=== PATIENT | male | born 1955 | race Caucasian/White ===

== ENCOUNTER 2021-05-11 14:00 | Outpatient (RCR) | payer MEDICARE, SELFPAY | END 2021-05-12 09:44 | disposition home or self-care (01) | LOC: PT.CARL 14:00 | PROVIDERS: PCP Nurse Practitioner Family; Visit Provider Orthopaedic Surgery | DX: M75.121 Complete rotator cuff tear or rupture of right shoulder, not specified as traumatic (principal); M25.511 Pain in right shoulder | CPT/HCPCS: 97010; 97014; 97110; 97140; 97163; 97164; G0283 ==

== ENCOUNTER 2021-08-23 11:00 | Outpatient (RCR) | payer MEDICARE, SELFPAY | END 2021-09-06 08:59 | disposition home or self-care (01) | LOC: PT.CARL 11:00 | PROVIDERS: PCP Nurse Practitioner Family; Visit Provider Orthopaedic Surgery | DX: M75.01 Adhesive capsulitis of right shoulder (principal) | CPT/HCPCS: 97010; 97014; 97110; 97140; 97163; 97164; G0283 ==

== ENCOUNTER → 2021-11-02 06:13 | Outpatient (CLI) | payer MEDICARE, SELFPAY ==
[2021-11-02 18:31] LABS: Chloride 97 mmol/L (98-107); Sodium 138 mmol/L (136-145)
[2021-11-02 18:34] LABS: Alanine Aminotransferase 32 U/L (12-78); Albumin Level 4.4 g/dl (3.5-5.0); Albumin/Globulin Ratio 1.6 (1.1-1.8); Alkaline Phosphatase 85 U/L (38-126); Aspartate Amino Transferase 38 U/L (17-59); Blood Urea Nitrogen 18 mg/dl (9-20); Calcium 8.9 mg/dl (8.4-10.2); Carbon Dioxide 28 mmol/L (22.0-30.0); Chol/HDL Ratio 4.3 (1-3.5); Cholesterol 138 mg/dl (140-200); Estimated Glomerular Filt Rate 96 ml/min (>60); GFR (African American) 116 ML/MIN (>60); Globulin 2.7 g/dL (1.3-3.2); Glucose 133 mg/dl (74-100); HDL Cholesterol 32 mg/dl (40-60); Total Protein,Serum 7.1 g/dl (6.3-8.2); Triglycerides 160 mg/dl (30-150); VLDL Cholesterol 32 mg/dL (0-40)
[2021-11-02 18:36] LABS: Basophils # 0.1 K/mm3 (0-0.2); Eosinophils # 0.2 K/mm3 (0.0-0.4); Eosinophils % 2.2 % (0.1-12.0); Hematocrit 41.8 % (42.0-52.0); Hemoglobin 13.7 g/dL (14.1-18.0); Lymphocytes # 1.3 K/mm3 (0.7-4.5); Lymphocytes % 17.1 % (10-50); Mean Corpuscular HGB Conc 32.7 g/dL (31.8-35.4); Mean Corpuscular Volume 91.6 fl (80-94); Mean Platelet Volume 20.7 fl (7.4-10.4); Monocytes # 0.6 K/mm3 (0.1-1.0); Monocytes % 7.7 % (1.7-9.3); Neutrophils # 5.7 K/mm3 (1.8-7.8); Platelet Count 218 K/mm3 (142-424); Red Blood Count 4.56 M/mm3 (4.60-6.20); White Blood Count 7.8 K/mm3 (4.8-10.8)
[2021-11-02 18:45] LABS: Direct LDL Cholesterol 76.82 mg/dL (100-129)
[2021-11-02 19:05] LABS: Thyroid Stimulating Hormone 2.58 uIU/mL (0.465-4.68)
[2021-11-02 19:23] LABS: Creatinine,Urine Random 81 mg/dL (Not Estab.); Microalbumin < 6.000 mg/L (0-16.7)
[2021-11-02 22:14] LABS: Prostate Specific Ag Screen 0.9 ng/ml (0.0-4.0)
[2021-11-02 23:50] LABS: Hemoglobin A1C 7.6 % (4.0-6.0)
== END ==
PROVIDERS: PCP Family Medicine; Visit Provider Family Medicine
DX: E11.65 Type 2 diabetes mellitus with hyperglycemia; I25.10 Atherosclerotic heart disease of native coronary artery without angina pectoris; J44.9 Chronic obstructive pulmonary disease, unspecified; Q00-Q99 Congenital malformations, deformations and chromosomal abnormalities; Z79.84 Long term (current) use of oral hypoglycemic drugs; Z12.5 Encounter for screening for malignant neoplasm of prostate
CPT/HCPCS: 80053; 80061; 82043; 82570; 83036; 84443; 85025; G0103

== ENCOUNTER → 2022-01-10 06:40 | Outpatient (CLI) | payer MEDICARE, SELFPAY | PROVIDERS: PCP Family Medicine; Visit Provider Family Medicine | DX: J40 Bronchitis, not specified as acute or chronic (principal) | CPT/HCPCS: 87070; 87077; 87186; 87205 ==

== ENCOUNTER → 2022-01-31 09:20 | Outpatient (CLI) | payer MEDICARE, SELFPAY ==
[2022-01-31 20:17] LABS: Hemoglobin A1C 9.2 % (4.0-6.0)
== END ==
PROVIDERS: PCP Family Medicine; Visit Provider Family Medicine
DX: E11.65 Type 2 diabetes mellitus with hyperglycemia (principal); Z79.84 Long term (current) use of oral hypoglycemic drugs
CPT/HCPCS: 83036

== ENCOUNTER 2022-03-04 23:49 | Emergency (ER) | payer MEDICARE, SELFPAY ==
[2022-03-04 23:51] VITALS: BP 148/73; PULSE 94; RESP 21; TEMP 36.8; O2SAT 91; BMI 27.3
--- NOTE | 2022-03-04 23:57 | ECG_ITS ---
APPROVED REPORT Exam: Resting ECG HR:91 bpm ECG Measurements Heart Rate 91 AXES KS 170 P 71 QRSd 78 QRS 78 QT 311 T 99 QTc 360 Conclusion SINUS RHYTHM LOW QRS VOLTAGE IN EXTREMITY LEADS [QRS DEFLECTION < 0.5 mV IN LIMB LEADS] POSSIBLE ANTERIOR MYOCARDIAL INFARCTION , PROBABLY OLD [30 ms Q WAVE IN V3/V4, OR R < 0.2 mV IN V4] BORDERLINE ECG UNCONFIRMED REPORT Electronically signed by : Chance Gutierrez MD 03/05/2022 16:20:36
[2022-03-05] VITALS: BP 125/67; PULSE 89; O2SAT 94; BMI 27.3
--- NOTE | 2022-03-05 | XR_ITS ---
PROCEDURE INFORMATION: Exam: XR Chest Exam date and time: 03/05/2022 12:26 AM Age: 67 years old Clinical indication: Pain; Chest pressure; Additional info: SOA TECHNIQUE: Imaging protocol: Radiologic exam of the chest. Views: 2 views. COMPARISON: No relevant prior studies available. FINDINGS: Lungs: No definite airspace consolidation. No appreciable pulmonary edema. Pleural spaces: No pleural effusion. No pneumothorax. Heart/Mediastinum: Bilateral perihilar fullness with fibrotic changes, nonspecific. No cardiomegaly. Bones/joints: No evidence of acute osseous abnormality. IMPRESSION: Bilateral perihilar fullness with fibrotic changes, nonspecific.
--- NOTE | 2022-03-05 00:02 | CT_ITS ---
PROCEDURE INFORMATION: Exam: CTA Chest With Contrast Exam date and time: 03/05/2022 12:43 AM Age: 67 years old Clinical indication: Shortness of breath; Additional info: SOA TECHNIQUE: Imaging protocol: Computed tomographic angiography of the chest with contrast. 3D rendering (Not supervised by radiologist): MIP and/or 3D reconstructed images were created by the technologist. Radiation optimization: All CT scans at this facility use at least one of these dose optimization techniques: automated exposure control; mA and/or kV adjustment per patient size (includes targeted exams where dose is matched to clinical indication); or iterative reconstruction. Contrast material: ISOVUE; Contrast volume: 70 ml; Contrast route: INTRAVENOUS (IV); COMPARISON: CR Chest 03/05/2022 12:26 AM FINDINGS: Pulmonary arteries: No pulmonary emboli. Aorta: No aortic dissection or aneurysm. Lungs: Moderate paraseptal and centrilobular emphysematous changes with bilateral subpleural and paramediastinal blebs. Bronchial wall thickening with severe bilateral widespread bronchiectasis and cystic changes of variable degrees. No acute airspace consolidation. No appreciable pulmonary edema. Few calcified pulmonary granulomata, compatible with chronic sequelae of prior granulomatous disease. Pleural spaces: No pneumothorax. No pleural effusion. Heart: No cardiomegaly. No significant pericardial effusion. Lymph nodes: Numerous conspicuous subcentimeter mediastinal and hilar lymph nodes noted. No enlarged lymph nodes by CT criteria. Calcified lymph nodes, compatible with chronic sequelae of prior granulomatous disease. Intraperitoneal space: No emergent findings or suspicious mass lesions in the visualized upper abdomen. Bones/joints: No acute osseous abnormality. Soft tissues: Unremarkable. IMPRESSION: 1. No evidence of pulmonary embolism or other acute process in the chest. 2. Bronchial wall thickening with severe bilateral widespread bronchiectasis and cystic changes of variable degrees. Findings appear compatible with cystic fibrosis. Langerhans cell histiocytosis would be a top differential diagnosis. 3. Emphysema. 4. Additional non-acute ancillary findings are detailed above. COMMENTS: In the absence of a history or active diagnosis of lung cancer, it is recommended that this patient with emphysema be evaluated for enrollment in a low dose CT lung cancer screening program.
--- NOTE | 2022-03-05 00:03 | PC.NURSE ---
RT at to obtain ABG
[2022-03-05 00:16] LABS: Basophils # 0.1 K/mm3 (0-0.2); Basophils % 0.3 % (0.1-2.0); Eosinophils # 0.2 K/mm3 (0.0-0.4); Eosinophils % 1.1 % (0.1-12.0); Hematocrit 40.2 % (42.0-52.0); Hemoglobin 13.1 g/dL (14.1-18.0); Lymphocytes # 0.9 K/mm3 (0.7-4.5); Lymphocytes % 4.7 % (10-50); Mean Corpuscular HGB Conc 32.5 g/dL (31.8-35.4); Mean Corpuscular Volume 92.1 fl (80-94); Mean Platelet Volume 8.8 fl (7.4-10.4); Monocytes # 1.1 K/mm3 (0.1-1.0); Monocytes % 5.6 % (1.7-9.3); Neutrophils # 16.8 K/mm3 (1.8-7.8); Neutrophils % 88.4 % (37.0-80.0); Platelet Count 275 K/mm3 (142-424); Red Blood Count 4.36 M/mm3 (4.60-6.20); Red Cell Distribution Width 14.4 % (11.5-17.5)
[2022-03-05 00:18] LABS: MANUAL DIFFERENTIAL MANUAL DIFFERENTIAL (MANUAL DIFF)
[2022-03-05 00:21] LABS: Chloride 99 mmol/L (98-107); Sodium 135 mmol/L (136-145)
[2022-03-05 00:22] LABS: Potassium 4.6 mmoL/L (3.5-5.1)
[2022-03-05 00:24] LABS: Alanine Aminotransferase 24 U/L (12-78); Albumin Level 4.2 g/dl (3.5-5.0); Albumin/Globulin Ratio 1.3 (1.1-1.8); Alkaline Phosphatase 79 U/L (38-126); Anion Gap 9.6 mEq/L (5-15); Aspartate Amino Transferase 22 U/L (17-59); Bilirubin,Total 1.4 mg/dl (0.2-1.3); Blood Urea Nitrogen 25 mg/dl (9-20); Calcium 9.4 mg/dl (8.4-10.2); Carbon Dioxide 31 mmol/L (22.0-30.0); Creatinine Clearance Estimated 80 mL/min (50-200); Estimated Glomerular Filt Rate 66 ml/min (>60); GFR (African American) 80 ML/MIN (>60); Globulin 3.3 g/dL (1.3-3.2); Glucose 221 mg/dl (74-100); Total Protein,Serum 7.5 g/dl (6.3-8.2)
[2022-03-05 00:25] LABS: Lactic Acid 1.9 mmol/L (0.7-2.1)
[2022-03-05 00:27] LABS: Lymphocytes % 8 % (10-50); Neutrophils % 85 % (42-76); Platelet Estimate Normal; RBC Morphology Normal; Total Cells Counted 100
[2022-03-05 00:30] LABS: C-Reactive Protein 213.7 mg/L (0-4)
--- NOTE | 2022-03-05 00:34 | PC.NURSE ---
Pt gone to RAD via wheelchair
[2022-03-05 00:36] LABS: NT Pro Brain Natriuretic Pep. 153 pg/mL (0-125)
[2022-03-05 00:39] LABS: Troponin I < 0.01 ng/ml (0.00-0.034)
[2022-03-05 00:45] LABS: Erythrocyte Sedimentation Rate 67 mm/hr (0-20)
--- NOTE | 2022-03-05 00:47 | PC.NURSE ---
Pt back from RAD
[2022-03-05 01:05] LABS: ABG HCO3 22.3 mmhg (22.0-26.0); ABG Oxygen Saturation 95 % (90-100); ABG PCO2 39.5 mmhg (35.0-45.0); ABG PH 7.37 mmol/L (7.35-7.45); ABG PO2 75.8 mmhg (80-100); ABG TCO2 23.5 mmhg (23-27)
--- NOTE | 2022-03-05 01:05 | HMH.EDSOB ---
Discharge Plan Disposition Patient Disposition: Home, Self-Care Prescriptions Prescriptions: New prednisone [prednisone] 20 mg tablet 20 mg PO BID Qty: 15 0RF levofloxacin 500 mg tablet 500 mg PO DAILY Qty: 7 0RF No Action Spiriva with HandiHaler 18 mcg capsule, w/inhalation device 1 cap INHALATION DAILY fluticasone propionate 50 mcg/actuation spray,suspension 1 g INTRANASAL DAILY albuterol sulfate 2.5 mg /3 mL (0.083 %) solution for nebulization 2.5 mg continuous nebulization Q4-6H clopidogrel 75 mg tablet 75 mg PO DAILY lisinopril 20 mg tablet 20 mg PO DAILY carvedilol 12.5 mg tablet 6.25 mg PO BID fluticasone propion-salmeterol 250-50 mcg/dose blister with device 1 ea INHALATION DAILY atorvastatin 40 mg tablet 40 mg PO DAILY multivitamin Tablet 1 tab PO DAILY furosemide 40 mg tablet 40 mg PO DAILY PRN (Reason: edema) cetirizine 10 mg tablet 10 mg PO DAILY PRN (Reason: Allergy Symptoms) vitamin B complex Tablet 1 tab PO DAILY vitamin E (dl, acetate) 180 mg (400 unit) capsule 180 mg PO DAILY ergocalciferol (vitamin D2) 50 mcg (2,000 unit) tablet 50 mcg PO DAILY nitroglycerin 0.4 mg tablet, sublingual 0.4 mg sublingual Q5-15M PRN (Reason: darby pain) metformin 500 mg tablet extended release 24 hr 1,000 mg PO BID Referrals Follow up/Referrals: Abelardo Jennings MD [Primary Care Provider] - See instructions Clinical Impressions Clinical Impression: Acute exacerbation of chronic obstructive airways disease, Bronchitis Discharge ED Provider: Moisés Welsh Resp/SOB HPI General Chief Complaint: Shortness of Breath/Dyspnea Stated Complaint: SOA Time Seen by Provider: 03/05/22 01:05 Mode of Arrival: Ambulatory Source of Information: Patient, Spouse and Medical Record Limitations: No Limitations Description of Symptoms (Recalled from ER Triage Doc. by RN): pt c/o SOA that started and increased tonight. History of Present Illness pt with hx of ongoing lung disease with cough and sob was treated in jan and was back to baseline has o2 at home -no fever Complaint: shortness of breath and cough Onset (ago): day(s) Severity: moderate Consistency/Duration: intermittent Known history of: COPD and diabetes Associated symptoms: denies other symptoms Related Data Home oxygen amount: 2 liters Home Medications Medication Instructions Recorded Confirmed albuterol sulfate 2.5 mg/3 mL 2.5 mg continuous nebulization 09/08/20 03/05/22 (0.083 %) solution for nebulization Q4-6H Breathing problems carvedilol 12.5 mg tablet 6.25 mg PO BID High blood pressure 09/08/20 03/05/22 clopidogrel 75 mg tablet 75 mg PO DAILY Blood thinner 09/08/20 03/05/22 fluticasone 250 mcg-salmeterol 50 1 ea inhalation DAILY Breathing 09/08/20 03/05/22 mcg/dose blistr powdr for problems inhalation fluticasone propionate 50 1 g intranasal DAILY Allergy 09/08/20 03/05/22 mcg/actuation nasal symptoms spray,suspension lisinopril 20 mg tablet 20 mg PO DAILY High blood pressure 09/08/20 03/05/22 tiotropium bromide 18 mcg capsule 1 cap inhalation DAILY Breathing 09/08/20 03/05/22 with inhalation device (Spiriva problems with HandiHaler) atorvastatin 40 mg tablet 40 mg PO DAILY HLD 11/02/21 03/05/22 cetirizine 10 mg tablet 10 mg PO DAILY PRN Allergy Symptoms 11/02/21 03/05/22 ergocalciferol (vitamin D2) 50 mcg 50 mcg PO DAILY Supplement 11/02/21 03/05/22 (2,000 unit) tablet furosemide 40 mg tablet 40 mg PO DAILY PRN edema 11/02/21 03/05/22 multivitamin 1 tab PO DAILY Supplement 11/02/21 03/05/22 vitamin B complex 1 tab PO DAILY Supplement 11/02/21 03/05/22 vitamin E (dl, acetate) 180 mg 180 mg PO DAILY Supplement 11/02/21 03/05/22 (400 unit) capsule nitroglycerin 0.4 mg sublingual 0.4 mg sublingual Q5-15M PRN darby 01/10/22 03/05/22 tablet pain metformin 500 mg tablet,extended 1,000 mg PO BID Diabetes
[2022-03-05 01:06] LABS: Coronavirus 19, PCR Not Detected (NotDetected); Influenza A, PCR Not Detected (NotDetected); Influenza B, PCR Not Detected (NotDetected)
[2022-03-05 01:06] LABS: Allen's Test Acceptable; Source Left Brachial
--- NOTE | 2022-03-05 02:00 | PC.NURSE ---
Dr. Welsh at BS updating pt on results
[2022-03-05 02:08] VITALS: BP 127/67; PULSE 81; RESP 21; TEMP 36.8; O2SAT 94
== END 2022-03-05 02:26 | disposition home or self-care (01) ==
PROVIDERS: Emergency Provider Emergency Medicine; PCP Family Medicine
DX: J44.1 Chronic obstructive pulmonary disease with (acute) exacerbation (principal); J20.9 Acute bronchitis, unspecified; I10 Essential (primary) hypertension; F41.9 Anxiety disorder, unspecified; E11.9 Type 2 diabetes mellitus without complications; Z83.3 Family history of diabetes mellitus; Z80.9 Family history of malignant neoplasm, unspecified; Z82.49 Family history of ischemic heart disease and other diseases of the circulatory system; Z87.891 Personal history of nicotine dependence; Z20.822 Contact with and (suspected) exposure to COVID-19
CPT/HCPCS: 71046; 71275; 80053; 82803; 83605; 83880; 84145; 84484; 85007; 85025; 85651; 86140; 87040; 87077; 87186; 93005; 96374; 99285; C9803; Q9967; U0003; U0005

== ENCOUNTER → 2022-06-01 17:02 | Outpatient (CLI) | payer MEDICARE, SELFPAY ==
[2022-06-01 19:15] LABS: Creatinine,Urine Random 66 mg/dL (Not Estab.)
[2022-06-01 19:17] LABS: Microalbumin/Creatinine Ratio 9.6
[2022-06-01 20:49] LABS: Hemoglobin A1C 8.3 % (4.0-6.0)
== END ==
PROVIDERS: PCP Family Medicine; Visit Provider Family Medicine
DX: E11.65 Type 2 diabetes mellitus with hyperglycemia (principal); Z79.84 Long term (current) use of oral hypoglycemic drugs
CPT/HCPCS: 82043; 82570; 83036

== ENCOUNTER → 2022-10-05 23:11 | Outpatient (CLI) | payer MEDICARE, SELFPAY ==
[2022-10-05 17:03] LABS: Basophils # 0.1 K/mm3 (0-0.2); Basophils % 0.7 % (0.1-2.0); Eosinophils # 0.2 K/mm3 (0.0-0.4); Eosinophils % 2.6 % (0.1-12.0); Hematocrit 43.6 % (42.0-52.0); Lymphocytes # 1.3 K/mm3 (0.7-4.5); Lymphocytes % 17.8 % (10-50); Mean Corpuscular Hemoglobin 30.6 pg (27.0-31.2); Mean Corpuscular Volume 95.6 fl (80-94); Mean Platelet Volume 8.9 fl (7.4-10.4); Monocytes # 0.5 K/mm3 (0.1-1.0); Monocytes % 6.7 % (1.7-9.3); Neutrophils # 5.4 K/mm3 (1.8-7.8); Neutrophils % 72.2 % (37.0-80.0); Platelet Count 223 K/mm3 (142-424); Red Blood Count 4.56 M/mm3 (4.60-6.20); Red Cell Distribution Width 13.2 % (11.5-17.5); White Blood Count 7.5 K/mm3 (4.8-10.8)
[2022-10-05 17:06] LABS: Alanine Aminotransferase 29 U/L (12-78); Albumin/Globulin Ratio 1.5 (1.1-1.8); Alkaline Phosphatase 73 U/L (38-126); Anion Gap 13.7 mEq/L (5-15); Aspartate Amino Transferase 27 U/L (17-59); Bilirubin,Total 0.5 mg/dl (0.2-1.3); Blood Urea Nitrogen 19 mg/dl (9-20); Calcium 9.2 mg/dl (8.4-10.2); Carbon Dioxide 32 mmol/L (22.0-30.0); Chloride 99 mmol/L (98-107); Chol/HDL Ratio 4.9 (1-3.5); Cholesterol 146 mg/dl (140-200); Estimated Glomerular Filt Rate 84 ml/min (>60); GFR (African American) 101 ML/MIN (>60); Globulin 2.7 g/dL (1.3-3.2); Glucose 133 mg/dl (74-100); HDL Cholesterol 30 mg/dl (40-60); Potassium 4.7 mmoL/L (3.5-5.1); Sodium 140 mmol/L (136-145); Total Protein,Serum 6.7 g/dl (6.3-8.2); Triglycerides 234 mg/dl (30-150); VLDL Cholesterol 47 mg/dL (0-40)
[2022-10-05 17:13] LABS: NT Pro Brain Natriuretic Pep. 40.3 pg/mL (0-125)
[2022-10-05 17:17] LABS: Direct LDL Cholesterol 86.77 mg/dL (100-129)
[2022-10-05 18:38] LABS: Hemoglobin A1C 7.6 % (4.0-6.0)
== END ==
PROVIDERS: PCP Family Medicine; Visit Provider Family Medicine
DX: Z00.00 Encounter for general adult medical examination without abnormal findings (principal); R06.00 Dyspnea, unspecified; E11.65 Type 2 diabetes mellitus with hyperglycemia; Z79.84 Long term (current) use of oral hypoglycemic drugs
CPT/HCPCS: 80053; 80061; 83036; 83880; 85025

== ENCOUNTER 2023-07-17 11:53 | Inpatient (IN) | payer MEDICARE, SELFPAY ==
[2023-07-17] VITALS (9 sets, daily range): BP systolic 132–144; BP diastolic 66–88; PULSE 72–88; RESP 15–18; TEMP 36.6–38.1; O2SAT 87–97; BMI 28.3; BMI 28.2
--- NOTE | 2023-07-17 12:43 | XR_ITS ---
FINAL REPORT CLINICAL HISTORY: Shortness of breath COMPARISON: None FINDINGS: A single portable view of the chest was obtained. The heart size and pulmonary vascularity are within normal limits. The mediastinum is within normal limits. Bilateral pulmonary opacities, [id number], are consistent with pneumonia. The bony thorax is intact. IMPRESSION: Bilateral pulmonary opacities consistent with pneumonia. Reviewed, Interpreted and Dictated by Wilmer Bates III, MD Transcribed by Juany Lundberg Authenticated and [facility]
--- NOTE | 2023-07-17 12:47 | ED_ITS ---
Discharge Plan Disposition Chief Complaint: Weakness Prescriptions Prescriptions: No Action Spiriva with HandiHaler 18 mcg capsule, w/inhalation device 1 cap INHALATION DAILY fluticasone propionate 50 mcg/actuation spray,suspension 1 g INTRANASAL DAILY albuterol sulfate 2.5 mg /3 mL (0.083 %) solution for nebulization 2.5 mg continuous nebulization Q4-6H clopidogrel 75 mg tablet 75 mg PO DAILY lisinopril 20 mg tablet 20 mg PO DAILY carvedilol 12.5 mg tablet 6.25 mg PO BID fluticasone propion-salmeterol 250-50 mcg/dose blister with device 1 ea INHALATION DAILY atorvastatin 40 mg tablet 40 mg PO DAILY multivitamin Tablet 1 tab PO DAILY cetirizine 10 mg tablet 10 mg PO DAILY PRN (Reason: Allergy Symptoms) vitamin B complex Tablet 1 tab PO DAILY vitamin E (dl, acetate) 180 mg (400 unit) capsule 180 mg PO DAILY ergocalciferol (vitamin D2) 50 mcg (2,000 unit) tablet 50 mcg PO DAILY nitroglycerin 0.4 mg tablet, sublingual 0.4 mg sublingual Q5-15M PRN (Reason: darby pain) hydroxyzine HCl 10 mg tablet 10 mg PO QID PRN (Reason: anxiety) Qty: 120 2RF metformin 500 mg tablet extended release 24 hr See Rx Instructions .ROUTE .COMPLEX Qty: 360 3RF Dose Instruction: Take 2 tablets by mouth twice daily Rx Instructions: Take 2 tablets by mouth twice daily glipizide 5 mg tablet 10 mg PO DAILY 90 Days Qty: 180 1RF Referrals Follow up/Referrals: Abelardo Jennings MD [Primary Care Provider] - See instructions Clinical Impressions Clinical Impression: Acute exacerbation of chronic obstructive airways disease, Pneumonia, Bronchiectasis Discharge ED Provider: Ton Guerra General Adult HPI General Chief complaint: Weakness Stated complaint: cough weakness left shoulder pain Time Seen by Provider: 07/17/23 12:21 Mode of Arrival: Ambulatory Source of Information: Patient Limitations: No Limitations Description of Symptoms (Recalled from ER Triage Doc. by RN): pt presents to ED from pcp office for further evaluation. pt reports that since monday night he has been having cough and generalized weakness. History of Present Illness HPI narrative: Patient is a 68-year-old with a history of COPD and bronchiectasis presents today with worsening cough shortness of breath fever and sputum production over the last several days. has had some left anterior chest pain nonexertional nonradiating has been ongoing for the last several days. Related Data Home Medications Medication Instructions Recorded Confirmed albuterol sulfate 2.5 mg/3 mL 2.5 mg continuous nebulization 09/08/20 07/17/23 (0.083 %) solution for nebulization Q4-6H Breathing problems carvedilol 12.5 mg tablet 6.25 mg PO BID High blood pressure 09/08/20 07/17/23 clopidogrel 75 mg tablet 75 mg PO DAILY Blood thinner 09/08/20 07/17/23 fluticasone 250 mcg-salmeterol 50 1 ea inhalation DAILY Breathing 09/08/20 07/17/23 mcg/dose blistr powdr for problems inhalation fluticasone propionate 50 1 g intranasal DAILY Allergy 09/08/20 07/17/23 mcg/actuation nasal symptoms spray,suspension lisinopril 20 mg tablet 20 mg PO DAILY High blood pressure 09/08/20 07/17/23 tiotropium bromide 18 mcg capsule 1 cap inhalation DAILY Breathing 09/08/20 07/17/23 with inhalation device (Spiriva problems with HandiHaler) atorvastatin 40 mg tablet 40 mg PO DAILY HLD 11/02/21 07/17/23 cetirizine 10 mg tablet 10 mg PO DAILY PRN Allergy Symptoms 11/02/21 07/17/23 ergocalciferol (vitamin D2) 50 mcg 50 mcg PO DAILY Supplement 11/02/21 07/17/23 (2,000 unit) tablet multivitamin 1 tab PO DAILY Supplement 11/02/21 07/17/23 vitamin B complex 1 tab PO DAILY Supplement 11/02/21 07/17/23 vitamin E (dl, acetate) 180 mg 180 mg PO DAILY Supplement 11/02/21 07/17/23 (400 unit) capsule nitroglycerin 0.4 mg sublingual 0.4 mg sublingual Q5-15M PRN darby 01/10/22 07/17/23 tablet pain Previous Rx's Medication Instructions Recorded hydroxyzine HCl 10 mg tablet 10 mg PO QID PRN anxiety #120 tabs 06/27/22 metformin 500 mg tablet,extended See Rx Instructions .Route 08/29/22 release 24 hr .COMPLEX #360 tabs glipizide 5 mg tablet 10 mg (2 x 5 mg) PO DAILY 90 days 05/07/23 #180 tabs Allergies Allergy/AdvReac Type Severity Reaction Status Date / Time No Known Allergies Allergy Verified 07/17/23 10:38 [facility] Disclaimer: The information contained in this section may have been updated after the patient was seen, as this information can be updated by other users. Medical History Congenital cystic bronchiectasis HTN (hypertension), benign COPD (chronic obstructive pulmonary disease) Atherosclerotic heart disease Asthma Anxiety Type 2 diabetes mellitus with hyperglycemia, without long-term current use of insulin Surgical History History of colonoscopy H/O repair of right rotator cuff Hx of cardiac cath Family History Other Cancer Diabetes Hypertension Social History Smoking Status: Former smoker alcohol intake: never substance use type: denies use current occupational status: retired Travel in the last 8 weeks: None ROS Obtained: Yes All systems reviewed & no additional complaints except as documented Physical Exam General General appearance: alert and in no apparent distress Respiratory Respiratory exam: Present other (Diffuse expiratory wheezing mildly prolonged expiratory phase ox saturations 87% on room air normalized to 95% on 3 L) Cardiovascular Cardiovascular exam: Present regular rate Neurological Exam Neurological exam: Present alert and oriented X3 Medical Decision Making Bill Inquiry Pt receiving controlled substance: No Vital Signs: 07/17/23 11:55 Temperature 98.8 F Temperature Source Oral Pulse Rate [Left Radial] 87 Respiratory Rate 18 Blood Pressure [Right Arm] 136/76 Blood Pressure Mean [Right Arm] 96 02 Sat by Pulse Oximetry 87 L Oxygen Delivery Method Room Air Orders (Tests/Meds): ED MEDICATIONS Generic Name Dose Route Start Last Admin Trade Name Freq PRN Reason Stop Dose Admin Magnesium Sulfate 2 gm in 50 mls @ 50 mls/hr 07/17/23 12:43 Magnesium Sulfate 2gm/50ml Premix IV 07/17/23 13:42 ONCE ONE Cefepime HCl 2 gm/ Sodium 100 mls @ 200 mls/hr 07/17/23 13:15 Chloride IV 07/17/23 13:44 ONCE ONE Azithromycin 500 mg/ Sodium 250 mls @ 250 mls/hr 07/17/23 13:15 Chloride IV 07/27/23 13:14 Q24H [facility] Vancomycin/PEG/NADA/Lysine/Water 1.75 gm in 350 mls @ 175 mls/hr 07/17/23 13:30 Vancomycin 1.75gm/350ml (Peg) Premix IV 07/17/23 15:29 ONCE ONE Miscellaneous 1 each 07/17/23 13:15 Vancomycin Consult Request NOTAPPLIC 08/16/23 13:14 CONSULT PHARMACY [facility] Sodium Chloride 3 ml 07/17/23 12:46 Sodium Chloride 3% 15ml [facility] 08/16/23 12:45 ONCE PRN INDUCE SPUTUM COLLECTION Discontinued Medications Generic Name Dose Route Start Last Admin Trade Name Freq PRN Reason Stop Dose Admin Albuterol/Ipratropium 3 ml 07/17/23 12:43 Ipratropium/Albuterol 3 Ml [facility] 07/17/23 12:44 ONCE ONE Amoxicillin/Clavulanate Potassium 1 each 07/17/23 12:43 07/17/23 13:01 Amoxicillin/Clavulanate Potassium 875/125mg Tablet PO 07/17/23 12:44 Not Given ONCE ONE Lactated Ringer's 500 mls @ 999 mls/hr 07/17/23 12:45 Lactated Ringer's 1000 Ml Bag IV 07/17/23 13:15 .Q31M [facility] Prednisone 60 mg 07/17/23 12:43 Prednisone 20mg Tab PO 07/17/23 12:44 ONCE ONE ORDERS Category Date Time Status CT chest wo con Stat Cat Scan 07/17/23 13:01 Taken CXR --portable [XR chest portable] Stat Exams 07/17/23 12:43 Taken CBC w/Auto Diff [Complete Blood Count Auto Diff] Stat Lab 07/17/23 13:11 Received CMP [Comprehensive Metabolic Panel] Stat Lab 07/17/23 13:11 Received Lactic Acid Stat Lab 07/17/23 13:11 Received Rapid PCR Covid and Flu A/B Stat Lab 07/17/23 13:06 Received Trop I [Troponin I] Stat Lab 07/17/23 13:11 Received Troponin I Q3H Lab 07/17/23 15:45 Ordered Troponin I Q3H Lab 07/17/23 18:45 Ordered Acid Fast Smear+Culture W/Rflx Routine Micro 07/17/23 13:11 Received Blood Culture Stat Micro 07/17/23 13:11 Received Sputum Culture & Gram Stain Stat Micro 07/17/23 13:11 Received Venous Blood Gas Stat RT 07/17/23 13:17 Ordered Medical Decision Narrative: Well-appearing 68-year-old male presented with increasing cough sputum production shortness of breath and wheezing consistent with a COPD exacerbation. He is mildly hypoxic but has oxygen at his disposal at home that he uses at night and has been wearing it during the day recently. No respiratory distress. Pneumonia certainly on the differential. Sputum culture has been sent. He has been evaluated [facility] for cystic bronchiectasis sweat chloride and ciliary biopsy were negative but he has been receiving courses of p.o. fluoroquinolones and inhaled tobramycin he has grown some gram-positive cocci gram-negative rods and gram-positive rods in the past. He is followed by pulmonology [facility]. Of note his visual merchandising associate have been wanting to repeat his acid-fast bacilli specimens which we are able to send today. Reassessment 1:22 PM chest x-ray performed to person interpreted also compared to radiology imaging available [facility]. He has a new infiltrate on the left also reviewed their records and given the fact that he has had numerous organisms that have grown will be very difficult to cover empirically he has a new oxygen requirement and I spoke with our visual merchandising associate here at [facility] and we agreed to admit the patient for broad-spectrum antibiotics including Vanco cefepime and azithromycin. Patient agreeable to this plan he is stable on 3 was nasal cannula hemodynamically stable labs are pending. I spoke with Dr. Knox with hospital medicine who agreed admit the patient for further evaluation management. Critical Care Critical Care Time Critical Care Time: Yes Attestation: On 07/17/23, the high probability of a clinically significant, sudden or life threatening deterioration of the following system(s) required my full and direct attention, intervention and personal management. The time I documented below is in addition to time spent performing reported procedures but includes the following listed in this critical care notation. Total Time Total Critical Care Time: 35
[2023-07-17] MEDS: IPRATROPIUM/ALBUTEROL 3 ML NEB IH ×3 (12:50→23:51)
--- NOTE | 2023-07-17 13:01 | CT_ITS ---
FINAL REPORT TECHNIQUE: Axial imaging of the chest was obtained without contrast. Reformatted images were also obtained and reviewed.This study was performed with techniques to keep radiation doses as low as reasonably achievable, (ALARA). Individualized dose reduction technique using automated exposure control or adjustment of mA and/or kV according to the patient's size were employed. CLINICAL HISTORY: f/u abnormal CXR COMPARISON: 03/05/2022 FINDINGS: There is no axillary adenopathy. There is persistent mediastinal and hilar adenopathy with the largest AP window lymph node measuring 30 mm. Previously this measured 25 mm. There is left ventricular apical subendocardial fat consistent with prior myocardial infarct. This is stable from prior exam. There is moderate emphysema. Again noted is a cystic bronchiectasis, greatest in the upper lobes. There are new lingular opacities most worrisome for pneumonia. There is a small left pleural effusion. There is no pericardial effusion or pneumothorax. IMPRESSION: Enlargement of AP window lymph node. Findings consistent with prior myocardial infarction. Moderate emphysema with stable cystic bronchiectasis. New lingular opacities most worrisome for pneumonia. Reviewed, Interpreted and Dictated by Wilmer Bates III, MD Transcribed by Annamarie Palencia Authenticated and [facility]
[2023-07-17 13:11] LABS: Coronavirus 19, PCR Not Detected (NotDetected); Influenza A, PCR Not Detected (NotDetected); Influenza B, PCR Not Detected (NotDetected)
--- NOTE | 2023-07-17 13:17 | PC.NURSE ---
respiratory aware of vbg order, collecting blood from lab at this time
[2023-07-17 13:21] LABS: Lactate Venous 1.5 mmol/L (0.4-2.0); VBG Base Excess -0.9 mmol/L (-2.4-2.3); VBG HCO3 24.9 mmol/L (23-30); VBG Oxygen Saturation 74.9 % (50-70); VBG PCO2 47.1 mmol/L (35-51); VBG PH 7.34 mmol/L (7.31-7.41); VBG PO2 41.4 mmol/L (28-40); VBG Total CO2 26.3 mmol/L (23-27)
[2023-07-17] MEDS: MAGNESIUM SULFATE IN WATER 2 GM/50 ML PIGGYBACK IV (13:23)
[2023-07-17] MEDS: predniSONE 20MG TAB 60 MG PO (13:24)
[2023-07-17] MEDS: LACTATED RINGERS 1000ML 500 ML 999 ML IV (13:24)
[2023-07-17 13:28] LABS: Chloride 98 mmol/L (98-107); Potassium 4.6 mmoL/L (3.5-5.1); Sodium 135 mmol/L (136-145)
[2023-07-17 13:29] LABS: Basophils # 0.1 K/mm3 (0-0.2); Basophils % 0.5 % (0.1-2.0); Eosinophils # 0.1 K/mm3 (0.0-0.4); Eosinophils % 0.6 % (0.1-12.0); Hemoglobin 12.8 g/dL (14.1-18.0); Lymphocytes # 1.3 K/mm3 (0.7-4.5); Lymphocytes % 8.6 % (10-50); Mean Corpuscular HGB Conc 32.1 g/dL (31.8-35.4); Mean Corpuscular Hemoglobin 30.7 pg (27.0-31.2); Mean Corpuscular Volume 95.8 fl (80-94); Mean Platelet Volume 8.6 fl (7.4-10.4); Monocytes # 1.2 K/mm3 (0.1-1.0); Monocytes % 7.7 % (1.7-9.3); Neutrophils # 12.3 K/mm3 (1.8-7.8); Neutrophils % 82.6 % (37.0-80.0); Platelet Count 248 K/mm3 (142-424); Red Blood Count 4.18 M/mm3 (4.60-6.20); Red Cell Distribution Width 13.5 % (11.5-17.5); White Blood Count 14.9 K/mm3 (4.8-10.8)
[2023-07-17 13:31] LABS: Alanine Aminotransferase 24 U/L (12-78); Albumin/Globulin Ratio 1.1 (1.1-1.8); Alkaline Phosphatase 68 U/L (38-126); Anion Gap 12.6 mEq/L (5-15); Aspartate Amino Transferase 23 U/L (17-59); Bilirubin,Total 1.2 mg/dl (0.2-1.3); Blood Urea Nitrogen 31 mg/dl (9-20); Carbon Dioxide 29 mmol/L (22.0-30.0); Creatinine Clearance Estimated 84 mL/min (50-200); Estimated Glomerular Filt Rate 66 ml/min (>60); GFR (African American) 80 ML/MIN (>60); Globulin 3.5 g/dL (1.3-3.2); Total Protein,Serum 7.5 g/dl (6.3-8.2)
[2023-07-17 13:32] LABS: Calcium 9.4 mg/dl (8.4-10.2); Glucose 196 mg/dl (74-100); Lactic Acid 1.3 mmol/L (0.7-2.1)
--- NOTE | 2023-07-17 13:38 | PC.NURSE ---
report called to raul on second floor
--- NOTE | 2023-07-17 13:38 | HMH.PHAINT1 ---
Pharmacy Intervention Comments: MEDICATION RECONCILIATION COMPLETED ON PATIENT USING EXTERNAL FILL HISTORY FROM PHARMACY. -DOLORES MONTGOMERY, THERESAD
[2023-07-17 13:47] LABS: Troponin I < 0.01 ng/ml (0.00-0.034)
--- NOTE | 2023-07-17 13:55 | PC.NURSE ---
arrived by w/c from ED
--- NOTE | 2023-07-17 14:45 | EXP.PHA.CONS ---
Pharmacy Consult Date: 07/17/23 Time: 14:46 Referring provider: DR LIGHT Reason for Consult:: VANCOMYCIN DOSING CONSULT Allergies Allergy/AdvReac Type Severity Reaction Status Date / Time No Known Allergies Allergy Verified 07/17/23 10:38 Home Medications Medication Instructions Recorded Confirmed Type carvedilol 12.5 mg tablet 6.25 mg PO BID 09/08/20 07/17/23 History clopidogrel 75 mg tablet 75 mg PO DAILY 09/08/20 07/17/23 History fluticasone 250 mcg-salmeterol 50 1 ea inhalation BID 09/08/20 07/17/23 History mcg/dose blistr powdr for inhalation lisinopril 20 mg tablet 20 mg PO DAILY 09/08/20 07/17/23 History tiotropium bromide 18 mcg capsule 1 cap inhalation DAILY 09/08/20 07/17/23 History with inhalation device (Spiriva with HandiHaler) atorvastatin 40 mg tablet 40 mg PO DAILY 11/02/21 07/17/23 History cetirizine 10 mg tablet 10 mg PO DAILY 11/02/21 07/17/23 History ergocalciferol (vitamin D2) 50 mcg 50 mcg PO DAILY 11/02/21 07/17/23 History (2,000 unit) tablet multivitamin 1 tab PO DAILY 11/02/21 07/17/23 History vitamin B complex 1 tab PO DAILY 11/02/21 07/17/23 History vitamin E (dl, acetate) 180 mg 180 mg PO DAILY 11/02/21 07/17/23 History (400 unit) capsule nitroglycerin 0.4 mg sublingual 0.4 mg sublingual Q5MINP PRN Chest 01/10/22 07/17/23 History tablet Pain glipizide 5 mg tablet 10 mg (2 x 5 mg) PO DAILY 90 days 05/07/23 07/17/23 Rx #180 tabs hydroxyzine HCl 10 mg tablet 10 mg PO QIDP PRN anxiety 07/17/23 07/17/23 History metformin 500 mg tablet,extended 1,000 mg PO BID 07/17/23 07/17/23 History release 24 hr New Prescriptions to Start Prescriptions: Height: 1.83 m Weight: 94.483 kg Laboratory Results:: Laboratory Results - last 24 hr 07/17/23 13:06: SARS-CoV-2 (PCR) Not detected, Influenza A Untype (PCR) Not detected, Influenza Type B (PCR) Not detected 07/17/23 13:11: WBC 14.9 H, RBC 4.18 L, Hgb 12.8 L, Hct 40.0 L, MCV 95.8 H, MCH 30.7, MCHC 32.1, RDW 13.5, Plt Count 248, MPV 8.6, Neut % (Auto) 82.6 H, Lymph % (Auto) 8.6 L, [place] % (Auto) 7.7, Eos % (Auto) 0.6, Baso % (Auto) 0.5, Neut # (Auto) 12.3 H, Lymph # (Auto) 1.3, [place] # (Auto) 1.2 H, Eos # (Auto) 0.1, Baso # (Auto) 0.1, VBG pH 7.34, VBG pCO2 47.1, VBG pO2 41.4 H, VBG HCO3 24.9, VBG Total CO2 26.3, VBG O2 Saturation 74.9 H, VBG Base Excess -0.9, VBG Lactic Acid 1.5, Sodium 135 L, Potassium 4.6, Chloride 98, Carbon Dioxide 29, Anion Gap 12.6, BUN 31 H, Creatinine 1.10, Estimated Creat Clear 84, Estimated GFR 66, Est GFR ( Amer) 80, Glucose 196 H, Lactate 1.3, Calcium 9.4, Total Bilirubin 1.2, AST 23, ALT 24, Alkaline Phosphatase 68, Troponin I < 0.01, Total Protein 7.5, Albumin 4.0, Globulin 3.5 H, Albumin/Globulin Ratio 1.1 Medical History: Medical History (Updated 07/17/23 @ 13:22 by Ton Guerra MD) Congenital cystic bronchiectasis HTN (hypertension), benign COPD (chronic obstructive pulmonary disease) Atherosclerotic heart disease Asthma Anxiety Type 2 diabetes mellitus with hyperglycemia, without long-term current use of insulin Assessment and Plan Assessment and plan all Dx Assessment and Plan for all problems:: Pharmacokinetic dosing service Objective: Age: 68 yo Serum creatinine: 1.1 mg/dL Height: 72.0 Inches Weight (kg): 94.483 Diagnosis: PNEUMONIA Assessment: IBW (kg): 77.60 Dosing wt(kg): 94.483 Estimated Creatinine clearance (ml/min): 68.6 CRCL method: Cockcroft and Gault using ibw(default). Drug selected: Vancomycin Loading dose (mg): 1750 MG Vd (liters): 66.1 (factor used: 0.7 L/kg) Davide (hr-1): 0.061 Half life (hrs): 11.36 CLvanco=?? 4.032 L/hr Recommended dose: 1500 mg Interval: 18 hrs Infusion time (hrs): 2.0 Predicted peak (mcg/mL): 32.1 Predicted trough (mcg/mL): 12.10 Total body weight is being used for vancomycin dosing. Recommendations: Give Vancomycin 1500 mg q 18 hrs with an expected Cpeak of 32.1 mcg/ml and an expected Ctrough of 12.10 mcg/ml TO START 07/18/23 AT 09:00, PATIENT TO BE GIVEN ONE-TIME LOADING DOSE OF VANCOMYCIN 1750 MG IV ONCE ON 07/17/23 AT 1500. AUC 0-24 /THOMPSON Data: THOMPSON 0.5 mcg/mL:?? AUC/THOMPSON:? 992.1 THOMPSON 1.0 mcg/mL:?? AUC/THOMPSON:? 496.0 --------- THOMPSON 1.5 mcg/mL:?? AUC/THOMPSON:? 330.7 THOMPSON 2.0 mcg/mL:?? AUC/THOMPSON:? 248.0 Thank you for the consult
--- NOTE | 2023-07-17 15:33 | P.CONS_ITS ---
History of Present Illness History of present illness: Mr. Esparza is a 76-year-old male around [id number] smoking last 1 greater than 15 years ago, carries a diagnosis of cystic bronchiectasis and moderate COPD along with chronic hypoxic respiratory failure, prior history of Pseudomonas colonization with most recent Pseudomonas positive cultures from 2019 presented to ER with worsening respiratory distress and pleuritic chest pain admitted for further evaluation and management. [facility] Disclaimer: The information contained in this section may have been updated after the patient was seen, as this information can be updated by other users. Medical History (Updated 07/17/23 @ 15:40 by Leslie Blanco MD) Acute and chronic respiratory failure with hypoxia Bronchiectasis with (acute) exacerbation Congenital cystic bronchiectasis HTN (hypertension), benign COPD (chronic obstructive pulmonary disease) Atherosclerotic heart disease Asthma Anxiety Type 2 diabetes mellitus with hyperglycemia, without long-term current use of insulin Surgical History History of colonoscopy H/O repair of right rotator cuff Hx of cardiac cath Family History Other Cancer Diabetes Hypertension Social History (Updated 07/17/23 @ 14:35 by DAMASO Vuong) Smoking Status: Former smoker alcohol intake: never substance use type: denies use current occupational status: retired Travel in the last 8 weeks: None Review of Systems Constitutional Constitutional: Reports anorexia, Reports body ache(s) and Reports fatigue Eyes Eyes: Denies eye discharge, Denies dry eyes, Denies irritation and Denies itchy eyes ENT Ears, Nose, Mouth, and Throat: Denies epistaxis, Denies facial pain, Denies lip swelling and Denies throat swelling *Cardiovascular Cardiovascular: Reports chest pain, Reports dyspnea and Reports dyspnea on exertion *Respiratory Respiratory: Reports chest congestion, Reports cough, Reports dyspnea, Reports dyspnea on exertion, Reports excessive phlegm production, Denies hemoptysis, Reports pain on inspiration, Reports pain with cough and Denies wheezing *Gastrointestinal Gastrointestinal: Denies abdominal pain, Denies belching and Denies cramping *Musculoskeletal Musculoskeletal: Reports back pain, Reports myalgias and Reports other (No small joint swelling or Pain) Psychiatric Psychiatric: Denies homicidal ideation and Denies suicidal ideation Endocrine Endocrine: Reports fatigue and Denies heat intolerance Hematologic/Lymphatic Hematologic/Lymphatic: Denies easy bleeding and Denies lymphadenopathy Allergic/Immunologic Allergic/Immunologic: Denies itchy eyes, Denies lip swelling, Denies throat swelling and Denies wheezing Pulmonology Exam Inpatient Vital signs and Labs for Last 24 Hours: Temp Pulse Resp BP Pulse Ox O2 Del Method O2 Flow Rate 97.9 F 83 15 132/88 96 Room Air 2.5 07/17/23 13:59 07/17/23 13:59 07/17/23 13:59 07/17/23 13:59 07/17/23 13:55 07/17/23 15:00 07/17/23 13:55 Laboratory Results - last 24 hr 07/17/23 13:06: SARS-CoV-2 (PCR) Not detected, Influenza A Untype (PCR) Not detected, Influenza Type B (PCR) Not detected 07/17/23 13:11: WBC 14.9 H, RBC 4.18 L, Hgb 12.8 L, Hct 40.0 L, MCV 95.8 H, MCH 30.7, MCHC 32.1, RDW 13.5, Plt Count 248, MPV 8.6, Neut % (Auto) 82.6 H, Lymph % (Auto) 8.6 L, [place] % (Auto) 7.7, Eos % (Auto) 0.6, Baso % (Auto) 0.5, Neut # (Auto) 12.3 H, Lymph # (Auto) 1.3, [place] # (Auto) 1.2 H, Eos # (Auto) 0.1, Baso # (Auto) 0.1, VBG pH 7.34, VBG pCO2 47.1, VBG pO2 41.4 H, VBG HCO3 24.9, VBG Total CO2 26.3, VBG O2 Saturation 74.9 H, VBG Base Excess -0.9, VBG Lactic Acid 1.5, S odium 135 L, Potassium 4.6, Chloride 98, Carbon Dioxide 29, Anion Gap 12.6, BUN 31 H, Creatinine 1.10, Estimated Creat Clear 84, Estimated GFR 66, Est GFR ( Amer) 80, Glucose 196 H, Lactate 1.3, Calcium 9.4, Total Bilirubin 1.2, AST 23, ALT 24, Alkaline Phosphatase 68, Troponin I < 0.01, Total Protein 7.5, Albumin 4.0, Globulin 3.5 H, Albumin/Globulin Ratio 1.1 I & O for Labs for Last 24 Hours: Intake & Output 07/14/23 07/15/23 07/16/23 07/17/23 23:59 23:59 23:59 23:59 Weight 208 lb 4.8 oz Constitutional: Present moderate distress Head: Present normocephalic and atraumatic ENT: Present normal exam, normal oropharynx and mucous membranes moist Neck: Present normal inspection and full ROM Respiratory: Present respiratory distress, rhonchi and able to speak in complete sentences; Absent wheezes or crackles Cardiac: Present S1/S2, Tachycardia and radial pulses present GI: Present soft and distention; Absent tenderness or guarding Skin: Present intact; Absent cyanosis or jaundice Neuro: Present alert, awake and oriented x 3 Extremities: Present normal inspection; Absent clubbing or cyanosis Psychiatric: Present normal affect and cooperative Meds Home Medications and Allergies Home Medications Medication Instructions Recorded Confirmed Type carvedilol 12.5 mg tablet 6.25 mg PO BID 09/08/20 07/17/23 History clopidogrel 75 mg tablet 75 mg PO DAILY 09/08/20 07/17/23 History fluticasone 250 mcg-salmeterol 50 1 ea inhalation BID 09/08/20 07/17/23 History mcg/dose blistr powdr for inhalation lisinopril 20 mg tablet 20 mg PO DAILY 09/08/20 07/17/23 History tiotropium bromide 18 mcg capsule 1 cap inhalation DAILY 09/08/20 07/17/23 History with inhalation device (Spiriva with HandiHaler) atorvastatin 40 mg tablet 40 mg PO DAILY 11/02/21 07/17/23 History cetirizine 10 mg tablet 10 mg PO DAILY 11/02/21 07/17/23 History ergocalciferol (vitamin D2) 50 mcg 50 mcg PO DAILY 11/02/21 07/17/23 History (2,000 unit) tablet multivitamin 1 tab PO DAILY 11/02/21 07/17/23 History vitamin B complex 1 tab PO DAILY 11/02/21 07/17/23 History vitamin E (dl, acetate) 180 mg 180 mg PO DAILY 11/02/21 07/17/23 History (400 unit) capsule nitroglycerin 0.4 mg sublingual 0.4 mg sublingual Q5MINP PRN Chest 01/10/22 07/17/23 History tablet Pain glipizide 5 mg tablet 10 mg (2 x 5 mg) PO DAILY 90 days 05/07/23 07/17/23 Rx #180 tabs hydroxyzine HCl 10 mg tablet 10 mg PO QIDP PRN anxiety 07/17/23 07/17/23 History metformin 500 mg tablet,extended 1,000 mg PO BID 07/17/23 07/17/23 History release 24 hr New Prescriptions to Start Prescriptions: Allergies Allergy/AdvReac Type Severity Reaction Status Date / Time No Known Allergies Allergy Verified 07/17/23 10:38 Results Laboratory Findings 07/17/23 13:11 07/17/23 13:11 Abnormal lab findings: Abnormal Labs 07/17/23 13:11 WBC 14.9 H RBC 4.18 L Hgb 12.8 L Hct 40.0 L MCV 95.8 H Neut % (Auto) 82.6 H Lymph % (Auto) 8.6 L Neut # (Auto) 12.3 H [place] # (Auto) 1.2 H VBG pO2 41.4 H VBG O2 Saturation 74.9 H Sodium 135 L BUN 31 H Glucose 196 H Globulin 3.5 H Assessment and Plan *Assessment and plan (1) Bronchiectasis with (acute) exacerbation: Status: Acute Category: Medical Code(s): J47.1 - Bronchiectasis with (acute) exacerbation (2) Pneumonia: Status: Acute Category: Medical Code(s): J18.9 - Pneumonia, unspecified organism (3) Acute and chronic respiratory failure with hypoxia: Status: Acute Category: Medical Code(s): J96.21 - Acute and chronic respiratory failure with hypoxia Plan Mr. Esparza is a 76-year-old male around [id number] smoking last 1 greater than 15 years ago, carries a diagnosis of cystic bronchiectasis and moderate COPD along with chronic hypoxic respiratory failure, prior history of Pseudomonas colonization with most recent Pseudomonas positive cultures from 2019 presented to ER with worsening respiratory distress and pleuritic chest pain admitted for further evaluation and management. Patient examination complains of worsening respiratory distress for the last 4 days prior to admission along with increasing cough and productive phlegm. He denies any subjective fevers or chills but denies any change in sputum color. CT chest upon admission compared to his prior CTA from 2022, new left upper lobe airspace disease and consolidative changes. Other changes including his cystic/bronchiectatic changes remained stable. Moderate respiratory distress. Bilateral rhonchorous breath sounds. No significant wheezing. Most recent sputum cultures from April 2023 positive for Klebsiella and haemophilus influenza, pansensitive. Plan: Initiate Levofloxacin 750 mg daily x 10 days. Ciprofloxacin not available as formulary. Duo Nebs Q6 scheduled CPT BID scheduled F/U sputum Gram stain AFB fungal stain cultures Continue oxygen supplementation to maintain O2 saturation goal of 90% and above # Thank you for involving pulmonary in this patient care. Will continue to follow.
[2023-07-17] MEDS: ACETAMINOPHEN 325MG TAB 650 MG PO (15:49)
[2023-07-17] MEDS: LEVOFLOXACIN/D5W 750 MG/150 ML 750 MG/150 ML PIGGYBACK 100 MG IV (15:50)
--- NOTE | 2023-07-17 16:21 | EXP.HP ---
History of Present Illness *Admission Date: 07/17/23 *Reason for visit:: SOB *History of present illness: Patient is 76-year-old male with past medical history of COPD diabetes type 2 chronic hypoxic respiratory failure, tobacco history who presents to the hospital due to chest pain as well as shortness of breath. According the patient he has been having chest pain especially while taking deep breaths, left-sided chest pain associated with taking deep breaths. He also has been feeling short of breath at rest, he also has noticed cough production productive of phlegm. Patient endorses to having fevers chills, he denied diarrhea constipation or abdominal pain. [facility] Disclaimer: The information contained in this section may have been updated after the patient was seen, as this information can be updated by other users. Medical History (Updated 07/17/23 @ 15:40 by Leslie Blanco MD) Acute and chronic respiratory failure with hypoxia Bronchiectasis with (acute) exacerbation Congenital cystic bronchiectasis HTN (hypertension), benign COPD (chronic obstructive pulmonary disease) Atherosclerotic heart disease Asthma Anxiety Type 2 diabetes mellitus with hyperglycemia, without long-term current use of insulin Surgical History History of colonoscopy H/O repair of right rotator cuff Hx of cardiac cath Family History Other Cancer Diabetes Hypertension Social History (Updated 07/17/23 @ 14:35 by DAMASO Vuong) Smoking Status: Former smoker alcohol intake: never substance use type: denies use current occupational status: retired Travel in the last 8 weeks: None Meds Home Medications and Allergies Home Medications Medication Instructions Recorded Confirmed Type carvedilol 12.5 mg tablet 6.25 mg PO BID 09/08/20 07/17/23 History clopidogrel 75 mg tablet 75 mg PO DAILY 09/08/20 07/17/23 History fluticasone 250 mcg-salmeterol 50 1 ea inhalation BID 09/08/20 07/17/23 History mcg/dose blistr powdr for inhalation lisinopril 20 mg tablet 20 mg PO DAILY 09/08/20 07/17/23 History tiotropium bromide 18 mcg capsule 1 cap inhalation DAILY 09/08/20 07/17/23 History with inhalation device (Spiriva with HandiHaler) atorvastatin 40 mg tablet 40 mg PO DAILY 11/02/21 07/17/23 History cetirizine 10 mg tablet 10 mg PO DAILY 11/02/21 07/17/23 History ergocalciferol (vitamin D2) 50 mcg 50 mcg PO DAILY 11/02/21 07/17/23 History (2,000 unit) tablet multivitamin 1 tab PO DAILY 11/02/21 07/17/23 History vitamin B complex 1 tab PO DAILY 11/02/21 07/17/23 History vitamin E (dl, acetate) 180 mg 180 mg PO DAILY 11/02/21 07/17/23 History (400 unit) capsule nitroglycerin 0.4 mg sublingual 0.4 mg sublingual Q5MINP PRN Chest 01/10/22 07/17/23 History tablet Pain glipizide 5 mg tablet 10 mg (2 x 5 mg) PO DAILY 90 days 05/07/23 07/17/23 Rx #180 tabs hydroxyzine HCl 10 mg tablet 10 mg PO QIDP PRN anxiety 07/17/23 07/17/23 History metformin 500 mg tablet,extended 1,000 mg PO BID 07/17/23 07/17/23 History release 24 hr New Prescriptions to Start Prescriptions: Allergies Allergy/AdvReac Type Severity Reaction Status Date / Time No Known Allergies Allergy Verified 07/17/23 10:38 Exam Data for Last 24 hours Vital signs and Labs for Last 24 Hours: Temp Pulse Resp BP Pulse Ox O2 Del Method O2 Flow Rate 97.9 F 83 15 132/88 96 Room Air 2.5 07/17/23 13:59 07/17/23 13:59 07/17/23 13:59 07/17/23 13:59 07/17/23 13:55 07/17/23 15:00 07/17/23 13:55 Laboratory Results - last 24 hr 07/17/23 13:06: SARS-CoV-2 (PCR) Not detected, Influenza A Untype (PCR) Not detected, Influenza Type B (PCR) Not detected 07/17/23 13:11: WBC 14.9 H, RBC 4.18 L, Hgb 12.8 L, Hct 40.0 L, MCV 95.8 H, MCH 30.7, MCHC 32.1, RDW 13.5, Plt Count 248, MPV 8.6, Neut % (Auto) 82.6 H, Lymph % (Auto) 8.6 L, [place] % (Auto) 7.7, Eos % (Auto) 0.6, Baso % (Auto) 0.5, Neut # (Auto) 12.3 H, Lymph # (Auto) 1.3, [place] # (Auto) 1.2 H, Eos # (Auto) 0.1, Baso # (Auto) 0.1, VBG pH 7.34, VBG pCO2 47.1, VBG pO2 41.4 H, VBG HCO3 24.9, VBG Total CO2 26.3, VBG O2 Saturation 74.9 H, VBG Base Excess -0.9, VBG Lactic Acid 1.5, Sodium 135 L, Potassium 4.6, Chloride 98, Carbon Dioxide 29, Anion Gap 12.6, BUN 31 H, Creatinine 1.10, Estimated Creat Clear 84, Estimated GFR 66, Est GFR ( Amer) 80, Glucose 196 H, Lactate 1.3, Calcium 9.4, Total Bilirubin 1.2, AST 23, ALT 24, Alkaline Phosphatase 68, Troponin I < 0.01, Total Protein 7.5, Albumin 4.0, Globulin 3.5 H, Albumin/Globulin Ratio 1.1 I & O for Last 24 hours: Intake & Output 07/14/23 07/15/23 07/16/23 07/17/23 23:59 23:59 23:59 23:59 Weight 94.483 kg Microbiology Reports for the Last 24 Hours: Microbiology 07/17/23 13:11 Sputum - Expectorated Sputum Gram Stain - Final Constitutional Constitutional: no acute distress *Routine HEENT Exam Head: Present normocephalic Eye: Present EOMI and PERRL ENT: Present mucous membranes moist *Routine Neck Exam Neck: Present supple; Absent lymphadenopathy *Routine Respiratory Exam Respiratory: Present distant breath sounds and diminished air movement *Routine Cardiovascular Exam Cardiovascular: Present RRR *Routine Abdominal Exam Abdominal: Present soft and normoactive bowel sounds; Absent tenderness *Routine Rectal Exam Rectal:: deferred *Routine Genitalia Exam Genitalia:: deferred *Routine Extremities Exam Extremities: Absent cyanosis, clubbing or edema *Routine Skin Exam Skin: Present warm; Absent rash *Routine Neurological Exam Neurological: Present alert and oriented X3 Assessment and Plan *Assessment and plan (1) Acute and chronic respiratory failure with hypoxia: Status: Acute Category: Medical Code(s): J96.21 - Acute and chronic respiratory failure with hypoxia (2) Bronchiectasis with (acute) exacerbation: Status: Acute Category: Medical Code(s): J47.1 - Bronchiectasis with (acute) exacerbation (3) Pneumonia: Status: Acute Category: Medical Code(s): J18.9 - Pneumonia, unspecified organism (4) Acute exacerbation of chronic obstructive airways disease: Status: Acute Category: Medical Code(s): J44.1 - Chronic obstructive pulmonary disease with (acute) exacerbation (5) Type 2 diabetes mellitus with hyperglycemia, without long-term current use of insulin: Status: Acute Category: Medical Code(s): E11.65 - Type 2 diabetes mellitus with hyperglycemia Plan Patient is 76-year-old male with past medical history of COPD diabetes type 2 chronic hypoxic respiratory failure, tobacco history who presents to the hospital due to chest pain as well as shortness of breath. According the patient he has been having chest pain especially while taking deep breaths, left-sided chest pain associated with taking deep breaths. He also has been feeling short of breath at rest, he also has noticed cough production productive of phlegm. Patient endorses to having fevers chills, he denied diarrhea constipation or abdominal pain. Assessment and plan Acute on chronic hypoxic respiratory failure COPD exacerbation Bilateral lung opacities concerning for pneumonia, lingula opacity concerning for pneumonia Start vancomycin, levofloxacin Check MRSA nasal swab Scheduled DuoNeb therapy Follow-up follow fevers in the setting of active infection Consulted pulmonology appreciate recommendations Continue oxygen evaluation, wean as tolerated Await further respiratory studies Diabetes mellitus Insulin sliding scale Hyperlipidemia Resume home atorvastatin Hypertension Resume home Coreg lisinopril DVT prophylaxis- heparin
[2023-07-17 16:40] LABS: POC Glucose,Bedside 292 (70-110)
[2023-07-17 16:48] LABS: Troponin I < 0.01 ng/ml (0.00-0.034)
[2023-07-17] MEDS: humaLOG 100 UNITS/ML 10ML VIAL (SSI) SQ ×2 (16:49→20:53)
--- NOTE | 2023-07-17 17:49 | PC.NURSE ---
Pt brought home meds, pharmacy had already left for the day. while in room pt pulled out a pill organizer and said he did not want to be charged for his meds given by the hospital and took his night time medicine the only one he could identify was carvedilol 6.25mg. this nurse locked the home medications in clinical engineering manager room and educated pt on safety concerns on taking home meds while in hospital.
[2023-07-17] MEDS: FLUTICASONE/SALMETEROL 250/50MCG DISKUS 1 PUFF IH (18:20)
[2023-07-17 19:59] LABS: Troponin I < 0.01 ng/ml (0.00-0.034)
[2023-07-17 21:35] LABS: Glucose,Random 569 mg/dL (74-100)
[2023-07-17 23:14] LABS: POC Glucose,Bedside 502 (70-110)
--- NOTE | 2023-07-18 00:50 | PC.NURSE ---
pt fsbs at bedside was 533 @ 2041. notified [facility] Aprn. phone order to give 20 units humalog, stat lab glucose obtained and lab called with results of 566. notified provider of results and asked about giving any additional insulin. at this time no additional insulin ordered. Rechecked fsbs at 2305, glucose 502
--- NOTE | 2023-07-18 03:02 | PC.NURSE ---
contacted [facility] pharmacy for dosing of vancomycin
[2023-07-18] MEDS: VANCOMYCIN/WATER FOR INJ (PEG) 1.5 GM/300 ML PIGGYBACK IV (03:43)
[2023-07-18 04:00] VITALS: BP 117/65; PULSE 71; RESP 17; TEMP 36.6; O2SAT 95; BMI 28.2
--- NOTE | 2023-07-18 05:41 | PC.NURSE ---
pt on 2l/nc, no c/o through the night. vancomycin started for positive blood cx's
[2023-07-18] MEDS: IPRATROPIUM/ALBUTEROL 3 ML NEB IH ×2 (05:57→12:38)
[2023-07-18] MEDS: FLUTICASONE/SALMETEROL 250/50MCG DISKUS 1 PUFF IH (05:57)
[2023-07-18 05:58] VITALS: PULSE 62; PULSE 67; O2SAT 91
[2023-07-18 06:03] LABS: Basophils # 0.1 K/mm3 (0-0.2); Basophils % 0.4 % (0.1-2.0); Eosinophils # 0.2 K/mm3 (0.0-0.4); Eosinophils % 1.4 % (0.1-12.0); Hematocrit 38.6 % (42.0-52.0); Hemoglobin 12.2 g/dL (14.1-18.0); Lymphocytes # 0.9 K/mm3 (0.7-4.5); Lymphocytes % 6.5 % (10-50); MANUAL DIFFERENTIAL MANUAL DIFFERENTIAL (MANUAL DIFF); Mean Corpuscular HGB Conc 31.5 g/dL (31.8-35.4); Mean Corpuscular Hemoglobin 31.5 pg (27.0-31.2); Mean Corpuscular Volume 99.8 fl (80-94); Mean Platelet Volume 8.6 fl (7.4-10.4); Monocytes # 0.7 K/mm3 (0.1-1.0); Monocytes % 4.7 % (1.7-9.3); Neutrophils # 12.7 K/mm3 (1.8-7.8); Neutrophils % 87.1 % (37.0-80.0); Platelet Count 227 K/mm3 (142-424); Red Blood Count 3.87 M/mm3 (4.60-6.20); Red Cell Distribution Width 13.5 % (11.5-17.5); White Blood Count 14.5 K/mm3 (4.8-10.8)
[2023-07-18 06:12] LABS: Chloride 102 mmol/L (98-107)
[2023-07-18 06:13] LABS: Potassium 5.6 mmoL/L (3.5-5.1); Sodium 132 mmol/L (136-145)
[2023-07-18 06:16] LABS: Anion Gap 14.6 mEq/L (5-15); Blood Urea Nitrogen 33 mg/dl (9-20); Calcium 8.9 mg/dl (8.4-10.2); Carbon Dioxide 21 mmol/L (22.0-30.0); Creatinine Clearance Estimated 92 mL/min (50-200); Estimated Glomerular Filt Rate 83 ml/min (>60); GFR (African American) 101 ML/MIN (>60); Glucose 381 mg/dl (74-100)
[2023-07-18 06:19] LABS: POC Glucose,Bedside 373 (70-110)
[2023-07-18] MEDS: humaLOG 100 UNITS/ML 10ML VIAL (SSI) SQ ×2 (06:29→11:34)
[2023-07-18 07:29] VITALS: BP 137/69; PULSE 74; RESP 16; TEMP 36.6; O2SAT 93
[2023-07-18] MEDS: DOCUSATE SODIUM 100 MG CAPSULE PO (08:09)
[2023-07-18] MEDS: LISINOPRIL 20MG TABLET 20 MG PO (08:09)
[2023-07-18] MEDS: CARVEDILOL 6.25MG TABLET 6.25 MG PO (08:09)
[2023-07-18] MEDS: ATORVASTATIN 40MG TABLET 40 MG PO (08:09)
[2023-07-18] MEDS: LORATADINE 10MG TABLET 10 MG PO (08:09)
[2023-07-18] MEDS: CLOPIDOGREL 75MG TAB 75 MG PO (08:09)
[2023-07-18 08:21] LABS: Lymphocytes % 4 % (10-50); Monocytes % 5 % (2-9); Neutrophils % 91 % (42-76); Total Cells Counted 100
[2023-07-18 08:24] LABS: RBC Morphology Normal
[2023-07-18 08:30] LABS: Platelet Estimate 214
[2023-07-18 08:40] VITALS: O2SAT 86
--- NOTE | 2023-07-18 08:40 | PC.NURSE ---
pt satting at 86 on room air at rest.
[2023-07-18 09:28] LABS: Hemoglobin A1C 9.5 % (4.0-6.0)
[2023-07-18] MEDS: EMPAGLIFLOZIN 10MG TABLET 10 MG PO (09:56)
--- NOTE | 2023-07-18 10:10 | P.PN_ITS ---
Subjective *Date: 07/18/23 *Time: 12:32 Interval history: No acute respiratory vents overnight. Patient admits continued improvement in his respiratory symptoms. Admits on improving pain with coughing. Pulmonology Exam Inpatient Vital signs and Labs for Last 24 Hours: Temp Pulse Resp BP Pulse Ox O2 Del Method O2 Flow Rate 97.8 F 74 16 137/69 86 L Nasal Cannula 2 07/18/23 07:29 07/18/23 07:29 07/18/23 07:29 07/18/23 07:29 07/18/23 08:40 07/18/23 09:00 07/18/23 09:00 Laboratory Results - last 24 hr 07/17/23 13:06: SARS-CoV-2 (PCR) Not detected, Influenza A Untype (PCR) Not detected, Influenza Type B (PCR) Not detected 07/17/23 13:11: WBC 14.9 H, RBC 4.18 L, Hgb 12.8 L, Hct 40.0 L, MCV 95.8 H, MCH 30.7, MCHC 32.1, RDW 13.5, Plt Count 248, MPV 8.6, Neut % (Auto) 82.6 H, Lymph % (Auto) 8.6 L, [place] % (Auto) 7.7, Eos % (Auto) 0.6, Baso % (Auto) 0.5, Neut # (Auto) 12.3 H, Lymph # (Auto) 1.3, [place] # (Auto) 1.2 H, Eos # (Auto) 0.1, Baso # (Auto) 0.1, VBG pH 7.34, VBG pCO2 47.1, VBG pO2 41.4 H, VBG HCO3 24.9, VBG Total CO2 26.3, VBG O2 Saturation 74.9 H, VBG Base Excess -0.9, VBG Lactic Acid 1.5, Sodium 135 L, Potassium 4.6, Chloride 98, Carbon Dioxide 29, Anion Gap 12.6, BUN 31 H, Creatinine 1.10, Estimated Creat Clear 84, Estimated GFR 66, Est GFR ( Amer) 80, Glucose 196 H, Lactate 1.3, Calcium 9.4, Total Bilirubin 1.2, AST 23, ALT 24, Alkaline Phosphatase 68, Troponin I < 0.01, Total Protein 7.5, Albumin 4.0, Globulin 3.5 H, Albumin/Globulin Ratio 1.1 07/17/23 15:57: Troponin I < 0.01 07/17/23 16:33: POC Glucose 292 H 07/17/23 18:57: Troponin I < 0.01 07/17/23 21:17: Random Glucose 569 H* 07/17/23 23:05: POC Glucose 502 H* 07/18/23 05:54: WBC 14.5 H, RBC 3.87 L, Hgb 12.2 L, Hct 38.6 L, MCV 99.8 H, MCH 31.5 H, MCHC 31.5 L, RDW 13.5, Plt Count 227, MPV 8.6, Neut % (Auto) 87.1 H, Lymph % (Auto) 6.5 L, [place] % (Auto) 4.7, Eos % (Auto) 1.4, Baso % (Auto) 0.4, Neut # (Auto) 12.7 H, Lymph # (Auto) 0.9, [place] # (Auto) 0.7, Eos # (Auto) 0.2, Baso # (Auto) 0.1, Total Counted 100, Neutrophils % (Manual) 91 H, Lymphocytes % (Manual) 4 L, Monocytes % (Manual) 5, Platelet Estimate 214, RBC Morphology Normal, Sodium 132 L, Potassium 5.6 H D, Chloride 102, Carbon Dioxide 21 L, Anion Gap 14.6, BUN 33 H, Creatinine 0.90, Estimated Creat Clear 92, Estimated GFR 83, Est GFR ( Amer) 101 D, Glucose 381 H D, Calcium 8.9 07/18/23 06:05: POC Glucose 373 H* 07/18/23 07:50: Hemoglobin A1c 9.5 H Temp Pulse Resp BP Pulse Ox O2 Del Method O2 Flow Rate 97.9 F 83 15 132/88 96 Room Air 2.5 07/17/23 13:59 07/17/23 13:59 07/17/23 13:59 07/17/23 13:59 07/17/23 13:55 07/17/23 15:00 07/17/23 13:55 Laboratory Results - last 24 hr 07/17/23 13:06: SARS-CoV-2 (PCR) Not detected, Influenza A Untype (PCR) Not detected, Influenza Type B (PCR) Not detected 07/17/23 13:11: WBC 14.9 H, RBC 4.18 L, Hgb 12.8 L, Hct 40.0 L, MCV 95.8 H, MCH 30.7, MCHC 32.1, RDW 13.5, Plt Count 248, MPV 8.6, Neut % (Auto) 82.6 H, Lymph % (Auto) 8.6 L, [place] % (Auto) 7.7, Eos % (Auto) 0.6, Baso % (Auto) 0.5, Neut # (Auto) 12.3 H, Lymph # (Auto) 1.3, [place] # (Auto) 1.2 H, Eos # (Auto) 0.1, Baso # (Auto) 0.1, VBG pH 7.34, VBG pCO2 47.1, VBG pO2 41.4 H, VBG HCO3 24.9, VBG Total CO2 26.3, VBG O2 Saturation 74.9 H, VBG Base Excess -0.9, VBG Lactic Acid 1.5, Sodium 135 L, Potassium 4.6, Chloride 98, Carbon Dioxide 29, Anion Gap 12.6, BUN 31 H, Creatinine 1.10, Estimated Creat Clear 84, Estimated GFR 66, Est GFR ( Amer) 80, Glucose 196 H, Lactate 1.3, Calcium 9.4, Total Bilirubin 1.2, AST 23, ALT 24, Alkaline Phosphatase 68, Troponin I < 0.01, Total Protein 7.5, Albumin 4.0, Globulin 3.5 H, Albumin/Globulin Ratio 1.1 I & O for Labs for Last 24 Hours: Intake & Output 07/15/23 07/16/23 07/17/23 07/18/23 23:59 23:59 23:59 23:59 Intake Total 240 / 240 270 / 270 Output Total 0 / 0 Balance 240 / 240 270 / 270 Weight 208 lb 4.8 oz 208 lb 3.2 oz Intake & Output 07/14/23 07/15/23 07/16/23 07/17/23 23:59 23:59 23:59 23:59 Weight 208 lb 4.8 oz Microbiology Reports for the Last 24 Hours: Microbiology 07/17/23 13:11 Blood Blood Culture - Preliminary 07/17/23 13:11 Sputum - Expectorated Sputum ROX Preparation - Final 07/17/23 13:11 Sputum - Expectorated Sputum Gram Stain - Final Constitutional: Present moderate distress Head: Present normocephalic and atraumatic ENT: Present normal exam, normal oropharynx and mucous membranes moist Neck: Present normal inspection and full ROM Respiratory: Present respiratory distress, rhonchi and able to speak in complete sentences; Absent wheezes or crackles Cardiac: Present S1/S2, Tachycardia and radial pulses present GI: Present soft and distention; Absent tenderness or guarding Skin: Present intact; Absent cyanosis or jaundice Neuro: Present alert, awake and oriented x 3 Extremities: Present normal inspection; Absent clubbing or cyanosis Psychiatric: Present normal affect and cooperative Assessment and Plan *Assessment and plan (1) Bronchiectasis with (acute) exacerbation: Status: Acute Category: Medical Code(s): J47.1 - Bronchiectasis with (acute) exacerbation (2) Pneumonia: Status: Acute Category: Medical Code(s): J18.9 - Pneumonia, unspecified organism (3) Acute and chronic respiratory failure with hypoxia: Status: Acute Category: Medical Code(s): J96.21 - Acute and chronic respiratory failure with hypoxia (4) Type 2 diabetes mellitus with hyperglycemia, without long-term current use of insulin: Status: Acute Category: Medical Code(s): E11.65 - Type 2 diabetes mellitus with hyperglycemia Plan Mr. Esparza is a 76-year-old male around [id number]-csmc smoking last 1 greater than 15 years ago, carries a diagnosis of cystic bronchiectasis and moderate COPD along with chronic hypoxic respiratory failure, prior history of Pseudomonas colonization with most recent Pseudomonas positive cultures from 2019 presented to ER with worsening respiratory distress and pleuritic chest pain admitted for further evaluation and management. Patient examination complains of worsening respiratory distress for the last 4 days prior to admission along with increasing cough and productive phlegm. He denies any subjective fevers or chills but denies any change in sputum color. CT chest upon admission compared to his prior CTA from 2022, new left upper lobe airspace disease and consolidative changes. Other changes including his cystic/bronchiectatic changes remained stable. On admission Moderate respiratory distress. Bilateral rhonchorous breath sounds. No significant wheezing. Most recent sputum cultures from April 2023 positive for Klebsiella and haem ophilus influenza, pansensitive. Interval Update: No acute respiratory events overnight. Improving oxygen parameters. Saturating 91% on room air. Continued needing oxygen supplementation with exertion. Blood cultures 1 bottle of showing gram-positive bacilli, likely contaminant however given his complicated history we will repeat blood cultures prior to discharge. Plan: Continue levofloxacin 750 mg daily x 10 days. Ciprofloxacin not available as formulary. Duo Nebs Q6 scheduled CPT BID scheduled. Patient strongly advised/recommended to be more compliant with his oxygen supplementation with exertion and also to use his chest percussion therapy twice a day on a scheduled basis F/U sputum Gram stain AFB fungal stain cultures Continue oxygen supplementation with exertion to maintain O2 saturation goal of 90% and above. Saturating 91% on room air at rest today. # Thank you for involving pulmonary in this patient care. Follow the patient in pulmonary clinic 5 days post discharge.
[2023-07-18 10:55] LABS: POC Glucose,Bedside 317 (70-110)
[2023-07-18 11:03] VITALS: BMI 28.2
[2023-07-18 11:47] VITALS: BP 118/62; PULSE 71; RESP 18; TEMP 36.7; O2SAT 91
--- NOTE | 2023-07-18 11:48 | EXP.DC.SUM ---
General Admission date:: 07/17/23 Discharge date: 07/18/23 HPI HPI HPI: Patient is 76-year-old male with past medical history of COPD diabetes type 2 chronic hypoxic respiratory failure, tobacco history who presents to the hospital due to chest pain as well as shortness of breath. According the patient he has been having chest pain especially while taking deep breaths, left-sided chest pain associated with taking deep breaths. He also has been feeling short of breath at rest, he also has noticed cough production productive of phlegm. Patient endorses to having fevers chills, he denied diarrhea constipation or abdominal pain. Hospital Course Hospital Course Hospital Course: Patient is 76-year-old male with past medical history of COPD diabetes type 2 chronic hypoxic respiratory failure, tobacco history who presents to the hospital due to chest pain as well as shortness of breath. According the patient he has been having chest pain especially while taking deep breaths, left-sided chest pain associated with taking deep breaths. He also has been feeling short of breath at rest, he also has noticed cough production productive of phlegm. Patient endorses to having fevers chills, he denied diarrhea constipation or abdominal pain. Evaluated by pulmonology. Given extensive history, was started on levofloxacin. Stable on 2 L nasal cannula oxygen. Discharge home with close follow-up as an outpatient. Problems addressed as follows: Acute on chronic hypoxic respiratory failure COPD exacerbation Bilateral lung opacities concerning for pneumonia, lingula opacity concerning for pneumonia Bronchiectasis -Started on broad-spectrum antibiotics. Pulmonology consulted and assisted with care. Has had Pseudomonas in the past. Transitioned to levofloxacin. Pulmonary status stable during admission. Will continue levofloxacin to complete 10 days of antibiotics. Needs close follow-up with pulmonology for further eval as an outpatient. Of note single bottle from his blood cultures returned positive for gram-positive cocci. Concern that this is likely contaminant/commensal organism. Repeated blood cultures. Stable to discharge home however. Will follow his cultures as an outpatient. -Continue breathing treatments per home regimen -Patient was 86% on room air at rest on day of discharge. Continues to necessitate 2 L nasal cannula oxygen continuously. Diabetes: Poorly controlled with A1c of 9.5. Continue glipizide and metformin. States that he misses his doses occasionally. Will initiate Farxiga 10 mg daily. If unable to obtain this medication, would necessitate transitioning to once daily basal insulin. Recommend close follow-up with his PCP for further management discussion. Hyperlipidemia: Continue home Lipitor Hypertension: Continue home carvedilol and lisinopril Total time spent on discharge 35 minutes in counseling, documentation, chart review, and direct care with patient. Exam Data for Last 24 hours Vital signs and Labs for Last 24 Hours: Temp Pulse Resp BP Pulse Ox O2 Del Method O2 Flow Rate 97.8 F 74 16 137/69 86 L Nasal Cannula 2 07/18/23 07:29 07/18/23 07:29 07/18/23 07:29 07/18/23 07:29 07/18/23 08:40 07/18/23 10:51 07/18/23 10:51 Laboratory Results - last 24 hr 07/17/23 13:06: SARS-CoV-2 (PCR) Not detected, Influenza A Untype (PCR) Not detected, Influenza Type B (PCR) Not detected 07/17/23 13:11: WBC 14.9 H, RBC 4.18 L, Hgb 12.8 L, Hct 40.0 L, MCV 95.8 H, MCH 30.7, MCHC 32.1, RDW 13.5, Plt Count 248, MPV 8.6, Neut % (Auto) 82.6 H, Lymph % (Auto) 8.6 L, [place] % (Auto) 7.7, Eos % (Auto) 0.6, Baso % (Auto) 0.5, Neut # (Auto) 12.3 H, Lymph # (Auto) 1.3, [place] # (Auto) 1.2 H, Eos # (Auto) 0.1, Baso # (Auto) 0.1, VBG pH 7.34, VBG pCO2 47.1, VBG pO2 41.4 H, VBG HCO3 24.9, VBG Total CO2 26.3, VBG O2 Saturation 74.9 H, VBG Base Excess -0.9, VBG Lactic Acid 1.5, Sodium 135 L, Potassium 4.6, Chloride 98, Carbon Dioxide 29, Anion Gap 12.6, BUN 31 H, Creatinine 1.10, Estimated Creat Clear 84, Estimated GFR 66, Est GFR ( Amer) 80, Glucose 196 H, Lactate 1.3, Calcium 9.4, Total Bilirubin 1.2, AST 23, ALT 24, Alkaline Phosphatase 68, Troponin I < 0.01, Total Protein 7.5, Albumin 4.0, Globulin 3.5 H, Albumin/Globulin Ratio 1.1 07/17/23 15:57: Troponin I < 0.01 07/17/23 16:33: POC Glucose 292 H 07/17/23 18:57: Troponin I < 0.01 07/17/23 21:17: Random Glucose 569 H* 07/17/23 23:05: POC Glucose 502 H* 07/18/23 05:54: WBC 14.5 H, RBC 3.87 L, Hgb 12.2 L, Hct 38.6 L, MCV 99.8 H, MCH 31.5 H, MCHC 31.5 L, RDW 13.5, Plt Count 227, MPV 8.6, Neut % (Auto) 87.1 H, Lymph % (Auto) 6.5 L, [place] % (Auto) 4.7, Eos % (Auto) 1.4, Baso % (Auto) 0.4, Neut # (Auto) 12.7 H, Lymph # (Auto) 0.9, [place] # (Auto) 0.7, Eos # (Auto) 0.2, Baso # (Auto) 0.1, Total Counted 100, Neutrophils % (Manual) 91 H, Lymphocytes % (Manual) 4 L, Monocytes % (Manual) 5, Platelet Estimate 214, RBC Morphology Normal, Sodium 132 L, Potassium 5.6 H D, Chloride 102, Carbon Dioxide 21 L, Anion Gap 14.6, BUN 33 H, Creatinine 0.90, Estimated Creat Clear 92, Estimated GFR 83, Est GFR ( Amer) 101 D, Glucose 381 H D, Calcium 8.9 07/18/23 06:05: POC Glucose 373 H* 07/18/23 07:50: Hemoglobin A1c 9.5 H 07/18/23 10:46: POC Glucose 317 H* I & O for Last 24 hours: Intake & Output 07/15/23 07/16/23 07/17/23 07/18/23 23:59 23:59 23:59 23:59 Intake Total 240 / 240 270 / 270 Output Total 0 / 0 Balance 240 / 240 270 / 270 Weight 94.483 kg 94.43 kg Microbiology Reports for the Last 24 Hours: Microbiology 07/17/23 13:11 Blood Blood Culture - Preliminary 07/17/23 13:11 Sputum - Expectorated Sputum ROX Preparation - Final 07/17/23 13:11 Sputum - Expectorated Sputum Gram Stain - Final Constitutional Constitutional: no acute distress and average body habitus *Routine HEENT Exam Head: Present normocephalic Eye: Present EOMI and PERRL ENT: Present mucous membranes moist *Routine Neck Exam Neck: Present supple; Absent lymphadenopathy *Routine Respiratory Exam Respiratory: Present prolonged expiratory phase and rhonchi; Absent wheezes or crackles *Routine Cardiovascular Exam Cardiovascular: Present RRR *Routine Abdominal Exam Abdominal: Present soft and normoactive bowel sounds; Absent tenderness *Routine Rectal Exam Patient deferred: visual exam *Routine Exam Patient deferred: penile exam *Routine Extremities Exam Extremities: Absent cyanosis, clubbing or edema *Routine Skin Exam Skin: Present warm; Absent rash *Routine Neurological Exam Neurological: Present alert, oriented X3 and moving all extremities; Absent altered mental status Results Data Completed and Pending Labs on day of discharge: Labs from last 24 hours 07/18/23 07/18/23 07/18/23 10:46 07:50 06:05 WBC RBC Hgb Hct MCV MCH MCHC RDW Plt Count MPV Neut % (Auto) Lymph % (Auto) [place] % (Auto) Eos % (Auto) Baso % (Auto) Neut # (Auto) Lymph # (Auto) [place] # (Auto) Eos # (Auto) Baso # (Auto) Total Counted Neutrophils % (Manual) Lymphocytes % (Manual) Monocytes % (Manual) Platelet Estimate RBC Morphology VBG pH VBG pCO2 VBG pO2 VBG HCO3 VBG Total CO2 VBG O2 Saturation VBG Base Excess VBG Lactic Acid Sodium Potassium Chloride Carbon Dioxide Anion Gap BUN Creatinine Estimated Creat Clear Estimated GFR Est GFR ( Amer) Glucose POC Glucose 317 H* 373 H* Random Glucose Hemoglobin A1c 9.5 H Lactate Calcium Total Bilirubin AST ALT Alkaline Phosphatase Troponin I Total Protein Albumin Globulin Albumin/Globulin Ratio SARS-CoV-2 (PCR) Influenza A Untype (PCR) Influenza Type B (PCR) 07/18/23 07/17/23 07/17/23 05:54 23:05 21:17 WBC 14.5 H RBC 3.87 L Hgb 12.2 L Hct 38.6 L MCV 99.8 H MCH 31.5 H MCHC 31.5 L RDW 13.5 Plt Count 227 MPV 8.6 Neut % (Auto) 87.1 H Lymph % (Auto) 6.5 L [place] % (Auto) 4.7 Eos % (Auto) 1.4 Baso % (Auto) 0.4 Neut # (Auto) 12.7 H Lymph # (Auto) 0.9 [place] # (Auto) 0.7 Eos # (Auto) 0.2 Baso # (Auto) 0.1 Total Counted 100 Neutrophils % (Manual) 91 H Lymphocytes % (Manual) 4 L Monocytes % (Manual) 5 Platelet Estimate 214 RBC Morphology Normal VBG pH VBG pCO2 VBG pO2 VBG HCO3 VBG Total CO2 VBG O2 Saturation VBG Base Excess VBG Lactic Acid Sodium 132 L Potassium 5.6 H D Chloride 102 Carbon Dioxide 21 L Anion Gap 14.6 BUN 33 H Creatinine 0.90 Estimated Creat Clear 92 Estimated GFR 83 Est GFR ( Amer) 101 D Glucose 381 H D POC Glucose 502 H* Random Glucose 569 H* Hemoglobin A1c Lactate Calcium 8.9 Total Bilirubin AST ALT Alkaline Phosphatase Troponin I Total Protein Albumin Globulin Albumin/Globulin Ratio SARS-CoV-2 (PCR) Influenza A Untype (PCR) Influenza Type B (PCR) 07/17/23 07/17/23 07/17/23 18:57 16:33 15:57 WBC RBC Hgb Hct MCV MCH MCHC RDW Plt Count MPV Neut % (Auto) Lymph % (Auto) [place] % (Auto) Eos % (Auto) Baso % (Auto) Neut # (Auto) Lymph # (Auto) [place] # (Auto) Eos # (Auto) Baso # (Auto) Total Counted Neutrophils % (Manual) Lymphocytes % (Manual) Monocytes % (Manual) Platelet Estimate RBC Morphology VBG pH VBG pCO2 VBG pO2 VBG HCO3 VBG Total CO2 VBG O2 Saturation VBG Base Excess VBG Lactic Acid Sodium Potassium Chloride Carbon Dioxide Anion Gap BUN Creatinine Estimated Creat Clear Estimated GFR Est GFR ( Amer) Glucose POC Glucose 292 H Random Glucose Hemoglobin A1c Lactate Calcium Total Bilirubin AST ALT Alkaline Phosphatase Troponin I < 0.01 < 0.01 Total Protein Albumin Globulin Albumin/Globulin Ratio SARS-CoV-2 (PCR) Influenza A Untype (PCR) Influenza Type B (PCR) 07/17/23 07/17/23 13:11 13:06 WBC 14.9 H RBC 4.18 L Hgb 12.8 L Hct 40.0 L MCV 95.8 H MCH 30.7 MCHC 32.1 RDW 13.5 Plt Count 248 MPV 8.6 Neut % (Auto) 82.6 H Lymph % (Auto) 8.6 L [place] % (Auto) 7.7 Eos % (Auto) 0.6 Baso % (Auto) 0.5 Neut # (Auto) 12.3 H Lymph # (Auto) 1.3 [place] # (Auto) 1.2 H Eos # (Auto) 0.1 Baso # (Auto) 0.1 Total Counted Neutrophils % (Manual) Lymphocytes % (Manual) Monocytes % (Manual) Platelet Estimate RBC Morphology VBG pH 7.34 VBG pCO2 47.1 VBG pO2 41.4 H VBG HCO3 24.9 VBG Total CO2 26.3 VBG O2 Saturation 74.9 H VBG Base Excess -0.9 VBG Lactic Acid 1.5 Sodium 135 L Potassium 4.6 Chloride 98 Carbon Dioxide 29 Anion Gap 12.6 BUN 31 H Creatinine 1.10 Estimated Creat Clear 84 Estimated GFR 66 Est GFR ( Amer) 80 Glucose 196 H POC Glucose Random Glucose Hemoglobin A1c Lactate 1.3 Calcium 9.4 Total Bilirubin 1.2 AST 23 ALT 24 Alkaline Phosphatase 68 Troponin I < 0.01 Total Protein 7.5 Albumin 4.0 Globulin 3.5 H Albumin/Globulin Ratio 1.1 SARS-CoV-2 (PCR) Not detected Influenza A Untype (PCR) Not detected Influenza Type B (PCR) Not detected Preliminary micro results at discharge 07/17/23 13:11 Blood Culture - Preliminary Blood DS: Diagnosis Discharge Diagnosis (1) Bronchiectasis with (acute) exacerbation: Status: Acute Code(s): J47.1 - Bronchiectasis with (acute) exacerbation (2) Pneumonia: Status: Acute Code(s): J18.9 - Pneumonia, unspecified organism (3) Acute and chronic respiratory failure with hypoxia: Status: Acute Code(s): J96.21 - Acute and chronic respiratory failure with hypoxia Meds Home Medications and Allergies Home Medications Medication Instructions Recorded Confirmed Type carvedilol 12.5 mg tablet 6.25 mg PO BID 09/08/20 07/17/23 History clopidogrel 75 mg tablet 75 mg PO DAILY 09/08/20 07/17/23 History fluticasone 250 mcg-salmeterol 50 1 ea inhalation BID 09/08/20 07/17/23 History mcg/dose blistr powdr for inhalation lisinopril 20 mg tablet 20 mg PO DAILY 09/08/20 07/17/23 History tiotropium bromide 18 mcg capsule 1 cap inhalation DAILY 09/08/20 07/17/23 History with inhalation device (Spiriva with HandiHaler) atorvastatin 40 mg tablet 40 mg PO DAILY 11/02/21 07/17/23 History cetirizine 10 mg tablet 10 mg PO DAILY 11/02/21 07/17/23 History ergocalciferol (vitamin D2) 50 mcg 50 mcg PO DAILY 11/02/21 07/17/23 History (2,000 unit) tablet multivitamin 1 tab PO DAILY 11/02/21 07/17/23 History vitamin B complex 1 tab PO DAILY 11/02/21 07/17/23 History vitamin E (dl, acetate) 180 mg 180 mg PO DAILY 11/02/21 07/17/23 History (400 unit) capsule nitroglycerin 0.4 mg sublingual 0.4 mg sublingual Q5MINP PRN Chest 01/10/22 07/17/23 History tablet Pain glipizide 5 mg tablet 10 mg (2 x 5 mg) PO DAILY 90 days 05/07/23 07/17/23 Rx #180 tabs hydroxyzine HCl 10 mg tablet 10 mg PO QIDP PRN anxiety 07/17/23 07/17/23 History metformin 500 mg tablet,extended 1,000 mg PO BID 07/17/23 07/17/23 History release 24 hr empagliflozin 10 mg tablet 10 mg PO DAILY 30 days #30 tabs 07/18/23 Rx (Jardiance) levofloxacin 750 mg tablet 750 mg PO DAILY 8 days #8 tabs 07/18/23 Rx New Prescriptions to Start Prescriptions: empagliflozin [Jardiance] Anthony Salazar levofloxacin Anthony Salazar Allergies Allergy/AdvReac Type Severity Reaction Status Date / Time No Known Allergies Allergy Verified 07/17/23 10:38 Discharge Plan Disposition Patient Disposition: Home, Self-Care Condition: Fair Discharge Order Discharge Orders: Discharge Order (Routine); Ordered 07/18/23 Ordered By: Anthony Salazar Follow up Plan Follow up with: Abelardo Jennings MD [Primary Care Provider] - 07/26/23 10:30 am Leslie Blanco MD [Physician] - 07/25/23 2:00 pm Prescriptions/Medication Reconciliation: New Jardiance 10 mg Tablet 10 mg PO DAILY 30 Days Qty: 30 0RF levofloxacin 750 mg tablet 750 mg PO DAILY 8 Days Qty: 8 0RF Rx Instructions: first dose due afternoon on 07/19/23 Continued Spiriva with HandiHaler 18 mcg capsule, w/inhalation device 1 cap INHALATION DAILY clopidogrel 75 mg tablet 75 mg PO DAILY lisinopril 20 mg tablet 20 mg PO DAILY carvedilol 12.5 mg tablet 6.25 mg PO BID fluticasone propion-salmeterol 250-50 mcg/dose blister with device 1 ea INHALATION BID atorvastatin 40 mg tablet 40 mg PO DAILY multivitamin Tablet 1 tab PO DAILY cetirizine 10 mg tablet 10 mg PO DAILY vitamin B complex Tablet 1 tab PO DAILY vitamin E (dl, acetate) 180 mg (400 unit) capsule 180 mg PO DAILY ergocalciferol (vitamin D2) 50 mcg (2,000 unit) tablet 50 mcg PO DAILY nitroglycerin 0.4 mg tablet, sublingual 0.4 mg sublingual Q5MINP PRN (Reason: Chest Pain) glipizide 5 mg tablet 10 mg PO DAILY 90 Days Qty: 180 1RF hydroxyzine HCl 10 mg tablet 10 mg PO QIDP PRN (Reason: anxiety) metformin 500 mg tablet extended release 24 hr 1,000 mg PO BID Problem Reconciliation Problems Reviewed?: Yes Patient Discharge Instructions ACTIVITY: Continue current activity DIET: continue same diet Patient Instructions: DI for Chronic Obstructive Pulmonary Disease, DI for Pneumonia -- Adult, DI for Shortness of Breath, COPD: When to Call for Help Providers Primary Care Provider: Abelardo Jennings Admit Provider: Estuardo Knox Attending Provider: Estuardo Knox
[2023-07-18 12:08] LABS: Lactate Venous 1.7 mmol/L (0.4-2.0); VBG Base Excess -0.7 mmol/L (-2.4-2.3); VBG HCO3 25.2 mmol/L (23-30); VBG PCO2 48.8 mmol/L (35-51); VBG PH 7.33 mmol/L (7.31-7.41); VBG PO2 63.9 mmol/L (28-40); VBG Total CO2 26.7 mmol/L (23-27)
--- OUTSIDE RECORDS SUMMARY | 2023-07-18 12:18 | XMS_ITS | Clinical Summary ---
Author Name Unknown Address [address] [place] [address] Phone Organization [facility] Address [address] [place] [address] Phone Care Team Providers Care Shuttle Car Operator Name Role Phone Jerri ARCHER, Evan Layton Unavailable [phone] Reason for Visit and Chief Complaint The Chief Complaint is: Right shoulder pain Problems Includes: Problems addressed during this encounter and other active Problems All Visits Onset Date Resolved Date Provider Condition S tatus Joint Pain, Localized in the Right Shoulder 12/21/2020 Evan mckeon MD Active Last Documented On 1 2:43PM ; [facility], [facility] Plan of Treatment Fall Risk Assessment: This patient has been identified as a fall risk. Balance/gait along with postural blood pressure, vision and home fall hazards have been assessed. Medications have been reviewed, and recommendations made with regard to contributing factors for future falls. Plan of care: Consideration of vitamin D supplementation along with balance and strength training with consideration for formal physical therapy has been discussed with the patient. - Last Documented On 12/27/2021 1:01PM ; [facility], [facility] He is finally making progress primarily due to his diligence and consistency with his home-based program. He is to continue this. We can see him in 2 to 3 months to recheck this if he is stalling. He has no formal restrictions. It may take him a full year for this to resolve - Last Documented On 12/27/2021 1:01PM ; [facility] Instructions to patient Lose weight Last Documented On 2 10:51AM ; [facility], [facility] Assessments Includes: Assessments from this encounter Findings Right frozen Shoulder - Last Documented On 12/27/2021 1:01PM ; [facility] Instructions Includes: Instructions from this encounter Instructions to patient Lose weight Last Documented On 2 10:51AM ; [facility] Medical Equipment - Implanted Devices Includes: Current Devices No Medical Equipment Recorded Medications Includes: Medications discussed during this encounter and other current Medications Current Medications (continue as prescribed) Atorvastatin Calcium 40 MG Oral Tablet 08/23/2021 Pr ovider: Diagnosis: Last Documented On 2 2:47PM By Fatmata Otto ; [facility] Carvedilol 12.5 MG Oral Tablet 08/23/2021 Provider: Diagnosis: Last Documented On 2 2:47PM By Fatmata Otto ; [facility] Lisinopril 20 MG Oral Tablet 08/23/2021 Provider: Diagnosis: Last Documented On 2 2:47PM By Fatmata Otto ; [facility] Spiriva HandiHaler 18 MCG Inhalation Capsule Provider: Diagnosis: Last Documented On 2 2:47PM By Fatmata Otto ; [facility] Fluticasone Propionate 50 MCG/ACT Nasal Suspension Provider: Diagnosis: Last Documented On 2 2:47PM By Fatmata Otto ; [facility] glipiZIDE 5 MG Oral Tablet 06/30/2021 Provider: Diagnosis: Last Documented On 2 2:47PM By Fatmata Otto ; [facility] metFORMIN HCl 1000 MG Oral Tablet 12/21/2020 Provide r: Diagnosis: Last Documented On 1 3:04PM By Leta Alejo ; [facility] Clopidogrel Bisulfate 75 MG Oral Tablet 12/21/2020 P mander: Diagnosis: Last Documented On 1 3:03PM By Leta Alejo ; [facility] Past Medications on file HYDROcodone-Acetaminophen 5- 325 MG Oral Tablet 04/22/2021 - 05/06/2021 Provider: Evan Guthrie MD Diagnosis: once a day Last Documented On 2 3:11PM By Evan Guthrie ; [facility] Zofran 4 MG Oral Tablet 01/21/2021 - 01/31/2021 Provid er: Evan Guthrie MD Diagnosis: Take 1 tablet every 8 hrs pr n pain Take 1 tablet every 8 hrs prn post op nausea Last Documented On 1 2:04PM By Deysi Valentino ; [facility] Benzoyl Peroxide Wash 5% External Liquid 01/21/2021 - 2021 Provider: Evan moore MD Diagnosis: use as directed by Dr. Guthrie Last Documented On 1 2:04PM By Deysi [facility] Medications Administered Includes: Administered Medications from this encounter No Administered Medications Recorded Vital Signs Includes: Vital Signs from this encounter Vital Name 12/27/2021 10:58A Blood Pressure Sitting (mmHg) 116/57 Pulse Rate-Sitting (bpm) 71 Height (in) 70 Weight (lb) 209 Body Mass Index (kg/m2) 30.0 Body Surface Area (m2) 2.1 Note: hdv Last Documented: On 12/27/2021 10:59A M ; [facility] Results Includes: Results discussed during this encounter No Results Recorded For Specified Dates History of Present Illness Includes: History of Present Illness from this encounter JOE Esparza is a 66 year old male. - Allergy list reviewed - Problem list reviewed - Medication list reviewed Patient is in today for follow-up on his frozen shoulder. He admits to finally being more consistent with a home exercise program and is finally seeing results Social History Description Last Updated Tobacco non-user 10/25/2021 Last Documented On 2 10:51AM ; [facility] Not a smoker 08/23/2021 Last Documented On 2 10:51AM ; [facility] Non-smoker 12/21/2020 Last Documented On 2 10:51AM ; [facility] Caffeine use 12/21/2020 Last Documented On 2 10:51AM ; [facility] Exercising regularly 12/21/2020 Last Documented On 2 10:51AM ; [facility] No recent change in diet 12/21/2020 Last Documented On 2 10:51AM ; [facility] Not a current smoker. 12/21/2020 Last Documented On 2 10:51AM ; [facility], [facility] Not using alcohol 12/21/2020 Last Documented On 2 10:51AM ; [facility] Not using drugs 12/21/2020 Last Documented On 2 10:51AM ; [facility], [facility] Smoking Status Unknown Procedures and Surgical History Includes: Procedures from this encounter Procedures Code Diagnosis Performing Provider Service L ocation Service Date use of tobacco assessment performed 1000F Last Documented On 2 10:51AM ; [facility], [facility] patient screened for future fall risk 3288F Last Documented On 2 10:51AM ; [facility], [facility] patient screened for future fall risk: documentation of any fall with injury in past year 1100F Last Documented On 2 10:51AM ; [facility], [facility] follow-up visit not in one month with P for elevated BP Last Documented On 2 10:51AM ; [facility] an X-ray was performed 21594 Last Documented On 2 10:51AM ; [facility] an MRI was performed [id number] Last Documented On 2 10:51AM ; [facility], [facility] Medical History Includes: Medical History addressed during this encounter Description Last Updated History of asthma 12/21/2020 Last Documented On 2 10:51AM ; [facility], [facility] History of diabetes mellitus 12/21/2020 Last Documented On 2 10:51AM ; [facility] History of Heart Attack / Stroke 021 Last Documented On 2 10:51AM ; [facility], [facility] Hypertension 12/21/2020 Last Documented On 2 10:51AM ; [facility], [facility] No recent immunization for flu Last Documented On 2 10:51AM ; [facility], [facility] No recent immunization for pneumococcal pneumonia 12/21/2020 Last Documented On 2 10:51AM ; [facility], [facility] Family History Includes: Family History addressed during this encounter Description Last Updated Diabetes mellitus 12/21/2020 Last Documented On 2 10:51AM ; [facility] Review of Systems Includes: Review of Systems from this encounter Systemic: Not feeling tired, no recent weight loss, and no recent weight gain. Head: No headache and no sinus pain. Eyes: No vision problems and no Cataracts. Glasses/Contacts. No Glaucoma. Otolaryngeal: No hearing loss and no tinnitus. Cardiovascular: No chest pain or discomfort, no palpitations, no Hypertension, and no High Cholesterol. Pulmonary: Daytime asthma symptoms. No chronic cough. No wheezing. Gastrointestinal: No heartburn and no abdominal pain. No Indigestion, no Acid Reflux, no Peptic Ulcer, no GI Stomach Bleed, and no Ulcers. Endocrine: No hot flashes and no muscle weakness. Diabetes. No Hypothyroid and no Hyperthyroid. Hematologic: No easy bleeding, no tendency for easy bruising, and no Anemia. Musculoskeletal: No Arthritis and no lower back pain. No soft tissue swelling and no localized joint pain. Neurological: No dizziness, no convulsions, and no numbness. Psychological: No anxiety, no emotional lability, no depression, and no insomnia. Not crying for no reason. Skin: No dry skin. No Ulcers, no Scars, and no rash. Allergic and Immunologic: Complaint of seasonal allergic reaction. Mental Status Includes: Mental Status from this encounter Description No anxiety Functional Status Includes: Functional Status from this encounter No Functional Status Recorded Physical Exam Includes: Physical Exam from this encounter Immunizations Includes: Immunizations addressed during this encounter Vaccine Dose # Date Site Reaction(s) Status Source Influenza 2 12/14/2021 Complete (Reported) Patient Last Documented On 2 10:59AM ; [facility] PCV (Pneumovax 23) 2 12/14/2021 Complete ( Reported) Patient Last Documented On 2 10:59AM ; [facility] Allergies Includes: Active Allergies No Known Allergies Encounters Encounter Provider Location Date Check-In Time Check- Out Time Diagnosis Follow Up Vern Michelle PA-C [facility] 2 10:53AM 11:10AM Insurance Includes: Active Insurance Policies Plan Name Member ID Group # Subscriber Relationship Effect lauren Dates 1 - [facility] [id number] Blake Esparza Self 2 - BCBS ([place]) Medicare [id number] Blake Esparza Self 11/13/2021 - Un known Clinical Notes Includes: Clinical Notes from this encounter No Clinical Notes Recorded
--- OUTSIDE RECORDS SUMMARY | 2023-07-18 12:18 | XMS_ITS ---
Care Plan - [facility], [facility] Created on: July 18, 2023 Blake Esparza : 1955 Sex: Male Author Name Unknown Address [address] [place] [address] [place] [address] Phone Organization [facility] Address [address] [place] [address] Phone Care Team Providers Care Substation Superintendent Name Role Phone Jerri ARCHER, Evan Layton Unavailable
--- OUTSIDE RECORDS SUMMARY | 2023-07-18 12:18 | XMS_ITS ---
Author Name Unknown Address [address] [place] [address] [place] [address] Phone Organization [facility] Address [address] [address] Phone Care Team Providers Care Lottery Sales Clerk Name Role Phone Jerri ARCHER, Evan Layton Unavailable [phone] Reason for Referral Date Encounter Description Provider Reason for Referral 10/25/21 Follow Up Cheslee Vj Bloyd PA-C Refe rral To Physician 08/23/21 Follow Up Cheslee Vj Bloyd PA-C Refe rral To Physician 04/22/21 Post Op Cheslee Vj Bloyd PA-C Refe rral To Physician - see PCP for BP 03/04/21 Post Op Cheslee Vj Bloyd PA-C Refe rral To Physician - see PCP for BP 12/21/20 Non Physician Specified Evan servin MD Referral To Physician - see PCP for BP Problems Includes: Active, inactive, and resolved Problems All Visits Onset Date Resolved Date Provider Condition S tatus Joint Pain, Localized in the Right Shoulder 12/21/2020 Evan mckeon MD Active Last Documented On 1 2:43PM ; [facility], [facility] Plan of Treatment Instructions to patient Lose weight Last Documented On 2 10:51AM ; [facility] Lose weight Last Documented On 2 10:24AM ; [facility] Lose weight Last Documented On 2 2:45PM ; [facility] Lose weight Last Documented On 2 10:14AM ; [facility] Lose weight Last Documented On 2 2:21PM ; [facility] Lose weight Last Documented On 2 1:30PM ; [facility] Lose weight Last Documented On 1 3:06PM ; [facility], [facility] Assessments Includes: Assessments for all patient encounters No Assessments Recorded Instructions Includes: Instructions for all patient encounters Instructions to patient Lose weight Last Documented On 2 10:51AM ; [facility] Lose weight Last Documented On 2 10:24AM ; [facility] Lose weight Last Documented On 2 2:45PM ; [facility] Lose weight Last Documented On 2 10:14AM ; [facility] Lose weight Last Documented On 2 2:21PM ; [facility] Lose weight Last Documented On 2 1:30PM ; [facility] Lose weight Last Documented On 1 3:06PM ; [facility], [facility] Medical Equipment - Implanted Devices Includes: Current and historical Devices No Medical Equipment Recorded Medications Includes: Current and historical Medications Current Medications (continue as prescribed) Atorvastatin Calcium 40 MG Oral Tablet 08/23/2021 Pr ovider: Diagnosis: Last Documented On 2 2:47PM By Fatmata Otto ; [facility] Carvedilol 12.5 MG Oral Tablet 08/23/2021 Provider: Diagnosis: Last Documented On 2 2:47PM By Fatmata Otto ; [facility] Lisinopril 20 MG Oral Tablet 08/23/2021 Provider: Diagnosis: Last Documented On 2 2:47PM By Fatmata Otto ; [facility] Spiriva HandiHaler 18 MCG Inhalation Capsule Provider: Diagnosis: Last Documented On 2 2:47PM By Fatmata Otto ; [facility] Fluticasone Propionate 50 MCG/ACT Nasal Suspension Provider: Diagnosis: Last Documented On 2 2:47PM By Fatmata Otto ; [facility] glipiZIDE 5 MG Oral Tablet 06/30/2021 Provider: Diagnosis: Last Documented On 2 2:47PM By Fatmata Otto ; [facility], [facility] metFORMIN HCl 1000 MG Oral Tablet 12/21/2020 Provide r: Diagnosis: Last Documented On 1 3:04PM By Leta Alejo ; [facility], [facility] Clopidogrel Bisulfate 75 MG Oral Tablet 12/21/2020 Sisi conwayder: Diagnosis: Last Documented On 1 3:03PM By Leta Alejo ; [facility], [facility] Past Medications on file HYDROcodone-Acetaminophen 5- 325 MG Oral Tablet 04/22/2021 - 05/06/2021 Provider: Evan Guthrie MD Diagnosis: once a day Last Documented On 2 3:11PM By Evan Guthrie ; [facility] Zofran 4 MG Oral Tablet 01/21/2021 - 01/31/2021 Provid er: Evan Guthrie MD Diagnosis: Take 1 tablet every 8 hrs pr n pain Take 1 tablet every 8 hrs prn post op nausea Last Documented On 1 2:04PM By Deysi Valentino ; [facility], [facility] Benzoyl Peroxide Wash 5% External Liquid 01/21/2021 - 2021 Provider: Evan moore MD Diagnosis: use as directed by Dr. Guthrie Last Documented On 1 2:04PM By Deysi Valentino ; [facility] metFORMIN HCl 1000 MG Oral Tablet 12/21/2020 - 022 Provider: Diagnosis: Last Documented On 2 1:51PM By Lily Benton ; [facility] Carvedilol 12.5 MG Oral Tablet 12/21/2020 - 08/23/2021 Provider: Diagnosis: Last Documented On 2 2:47PM By Fatmata Otto ; [facility] Atorvastatin Calcium 40 MG Oral Tablet 12/21/2020 - Provider: Diagnosis: Last Documented On 2 2:47PM By Fatmata Otto ; [facility], [facility] Medications Administered Includes: Administered Medications in patient's chart No Administered Medications Recorded Results Includes: Results from 07/17/2022 through 07/18/2023 No Results Recorded For Specified Dates History of Present Illness History of Present Illness not supported for this document type No History of Present Illness Recorded Social History Description Last Updated Tobacco non-user 10/25/2021 Last Documented On 2 1:24PM ; [facility], [facility] Not a smoker 08/23/2021 Last Documented On 2 8:36AM ; [facility] Non-smoker 12/21/2020 Last Documented On 1 2:03PM ; [facility] Caffeine use 12/21/2020 Last Documented On 1 2:03PM ; [facility], [facility] Exercising regularly 12/21/2020 Last Documented On 1 2:03PM ; [facility], [facility] No recent change in diet 12/21/2020 Last Documented On 1 2:03PM ; [facility], [facility] Not a current smoker. 12/21/2020 Last Documented On 1 2:03PM ; [facility], [facility] Not using alcohol 12/21/2020 Last Documented On 1 2:03PM ; [facility], [facility] Not using drugs 12/21/2020 Last Documented On 1 2:03PM ; [facility], [facility] Smoking Status Unknown Medical History Includes: Medical History in patient's chart Description Last Updated History of asthma 12/21/2020 Last Documented On 1 2:03PM ; [facility] History of diabetes mellitus 12/21/2020 Last Documented On 1 2:03PM ; [facility], [facility] History of Heart Attack / Stroke 021 Last Documented On 1 2:03PM ; [facility] Hypertension 12/21/2020 Last Documented On 1 2:03PM ; [facility], [facility] No recent immunization for flu 1 Last Documented On 1 2:03PM ; [facility], [facility] No recent immunization for pneumococcal pneumonia 12/21/2020 Last Documented On 1 2:03PM ; [facility], [facility] Family History Includes: Family History in patient's chart Description Last Updated Diabetes mellitus 12/21/2020 Last Documented On 1 2:03PM ; [facility], [facility] Review of Systems Review of Systems not supported for this document type No Review of Systems Recorded Mental Status Description No anxiety Functional Status No Functional Status Recorded Physical Exam Physical Exam not supported for this document type No Physical Exam Recorded Immunizations Includes: Immunizations in patient's chart Vaccine Dose # Date Site Reaction(s) Status Source Influenza 1 12/14/2020 Complete (Reported) Patient Last Documented On 2 2:52PM ; [facility], [facility] Influenza 2 12/14/2021 Complete (Reported) Patient Last Documented On 2 10:59AM ; [facility], [facility] PCV (Pneumovax 23) 1 12/14/2020 Complete ( Reported) Patient Last Documented On 2 2:52PM ; [facility], [facility] PCV (Pneumovax 23) 2 12/14/2021 Complete ( Reported) Patient Last Documented On 2 10:59AM ; [facility], [facility] Td 1 08/23/2021 Complete (Refused - Patient objection) [facility], [facility] Last Documented On 2 2:52PM ; [facility], [facility] Allergies Includes: Active, inactive, and resolved Allergies No Known Allergies Insurance Includes: Active Insurance Policies Plan Name Member ID Group # Subscriber Relationship Effect lauren Dates 1 - [facility] [id number] Blake Woods 2 - BCBS ([place]) Medicare [id number] Blake Woods 11/13/2021 - Un known Clinical Notes Includes: Signed Clinical Notes starting from 01/27/2022 No Clinical Notes Recorded
--- OUTSIDE RECORDS SUMMARY | 2023-07-18 12:18 | XMS_ITS | Clinical Summary ---
Author Name Unknown Address [address] [place] [address] [place] [address] Phone Organization [facility] , [facility] Address [address] [place] [address] Phone Care Team Providers Care Steward/Stewardess Economy Class Name Role Phone Jerri ARCHER, Evan Layton Unavailable [phone] Reason for Referral Date Encounter Description Provider Reason for Referral 10/25/21 Follow Up Vern Michelle PA-C Refe rral To Physician Reason for Visit and Chief Complaint The Chief Complaint is: Right shoulder pain Problems Includes: Problems addressed during this encounter and other active Problems All Visits Onset Date Resolved Date Provider Condition S tatus Joint Pain, Localized in the Right Shoulder 12/21/2020 Evan mckeon MD Active Last Documented On 1 2:43PM ; [facility] Plan of Treatment Fall Risk Assessment: This [...] with the patient. - Last Documented On 10/25/2021 1:24PM ; [facility] This is not resolving. Again I think he is likely headed towards a capsular release. I did inform and that would still require quite a bit of therapy postoperatively. He is considering this after the first of the year. We did talk extensively about home exercise-based program as well. He will see us in a couple months we will likely order an MRI for surgical planning - Last Documented On 10/25/2021 1:24PM ; [facility] Instructions to patient Lose weight Last Documented On 2 10:24AM ; [facility], [facility] Assessments Includes: Assessments from this encounter Findings Postop right frozen shoulder - Last Documented On 10/25/2021 1:24PM ; [facility], [facility] Instructions Includes: Instructions from this encounter Instructions to patient Lose weight Last Documented On 2 10:24AM ; [facility], [facility] Medical Equipment - Implanted Devices Includes: Current Devices No Medical Equipment Recorded Medications Includes: Medications discussed during this encounter and other current Medications Current Medications (continue as prescribed) Atorvastatin Calcium 40 MG Oral Tablet 08/23/2021 Pr ovider: Diagnosis: Last Documented On 2 2:47PM By Fatmata Otto ; [facility] Carvedilol 12.5 MG Oral Tablet 08/23/2021 Provider: Diagnosis: Last Documented On 2 2:47PM By Fatmata Otto ; [facility] Lisinopril 20 MG Oral Tablet 08/23/2021 Provider: Diagnosis: Last Documented On 2 2:47PM By Fatmata Otto ; [facility] Spiriva HandiHaler 18 MCG Inhalation Capsule 2 Provider: Diagnosis: Last Documented On 2 2:47PM By Fatmata Otto ; [facility] Fluticasone Propionate 50 MCG/ACT Nasal Suspension Provider: Diagnosis: Last Documented On 2 2:47PM By Fatmata Otto ; [facility] glipiZIDE 5 MG Oral Tablet 06/30/2021 Provider: Diagnosis: Last Documented On 2 2:47PM By Fatmata Otto ; [facility] metFORMIN HCl 1000 MG Oral Tablet 12/21/2020 Provide r: Diagnosis: Last Documented On 1 3:04PM By Leta Alejo ; [facility] Clopidogrel Bisulfate 75 MG Oral Tablet 12/21/2020 P mander: Diagnosis: Last Documented On 1 3:03PM By Leta Alejo ; [facility], [facility] Past Medications on file HYDROcodone-Acetaminophen 5- 325 MG Oral Tablet 04/22/2021 - 05/06/2021 Provider: Evan Guthrie MD Diagnosis: once a day Last Documented On 2 3:11PM By Evan Guthrie ; [facility] Zofran 4 MG Oral Tablet 01/21/2021 - 01/31/2021 Provid er: Evan Guthrie MD Diagnosis: Take 1 tablet every 8 hrs pr n pain Take 1 tablet every 8 hrs prn post op nausea Last Documented On 1 2:04PM [facility] Benzoyl Peroxide Wash 5% External Liquid 01/21/2021 - 2021 Provider: Evan moore MD Diagnosis: use as directed by Dr. Guthrie Last Documented On 1 2:04PM By [facility] Medications Administered Includes: Administered Medications from this encounter No Administered Medications Recorded Vital Signs Includes: Vital Signs from this encounter Vital Name 10/25/2021 10:35A Blood Pressure Sitting (mmHg) 144/67 Pulse Rate-Sitting (bpm) 73 Height (in) 70 Weight (lb) 209 Body Mass Index (kg/m2) 30.0 Body Surface Area (m2) 2.1 Note: ba Last Documented: On 10/25/2021 10:36A M ; [facility], [facility] Results Includes: Results discussed during this encounter No Results Recorded For Specified Dates History of Present Illness Includes: History of Present Illness from this encounter JOE Esparza is a 66 year old male. - Allergy list reviewed - Problem list reviewed - Medication list reviewed He is in today for follow-up on frozen shoulder and cuff repair. He several months out on this problem and his cuff repair. He admits to not doing therapy which did not improve and he does not do much in the way of home exercise Social History Description Last Updated Tobacco non-user 10/25/2021 Last Documented On 2 1:24PM ; [facility], [facility] Not a smoker 08/23/2021 Last Documented On 2 10:24AM ; [facility] Non-smoker 12/21/2020 Last Documented On 2 10:24AM ; [facility] Caffeine use 12/21/2020 Last Documented On 2 10:24AM ; [facility] Exercising regularly 12/21/2020 Last Documented On 2 10:24AM ; [facility] No recent change in diet 12/21/2020 Last Documented On 2 10:24AM ; [facility] Not a current smoker. 12/21/2020 Last Documented On 2 10:24AM ; [facility] Not using alcohol 12/21/2020 Last Documented On 2 10:24AM ; [facility] Not using drugs 12/21/2020 Last Documented On 2 10:24AM ; [facility] Smoking Status Unknown Procedures and Surgical History Includes: Procedures from this encounter Procedures Code Diagnosis Performing Provider Service L ocation Service Date use of tobacco assessment performed 1000F Last Documented On 2 10:24AM ; [facility], [facility] patient screened for future fall risk 3288F Last Documented On 2 10:24AM ; [facility] patient screened for future fall risk: documentation of any fall with injury in past year 1100F Last Documented On 2 10:36AM ; [facility] follow-up visit not in one month with PC P for elevated BP Last Documented On 2 10:24AM ; [facility] follow-up visit in one month Last Documented On 2 10:36AM ; [facility] referral to physician Last Documented On 2 10:36AM ; [facility] an X-ray was performed 92281 Last Documented On 2 10:24AM ; [facility] an MRI was performed [id number] Last Documented On 2 10:24AM ; [facility] Medical History Includes: Medical History addressed during this encounter Description Last Updated History of asthma 12/21/2020 Last Documented On 2 10:24AM ; [facility] History of diabetes mellitus 12/21/2020 Last Documented On 2 10:24AM ; [facility] History of Heart Attack / Stroke 021 Last Documented On 2 10:24AM ; [facility] Hypertension 12/21/2020 Last Documented On 2 10:24AM ; [facility] No recent immunization for flu 1 Last Documented On 2 10:24AM ; [facility] No recent immunization for pneumococcal pneumonia 12/21/2020 Last Documented On 2 10:24AM ; [facility] Family History Includes: Family History addressed during this encounter Description Last Updated Diabetes mellitus 12/21/2020 Last Documented On 2 10:24AM ; [facility] Review of Systems Includes: Review [...] Exam Includes: Physical Exam from this encounter Allergies Includes: Active Allergies No Known Allergies Encounters Encounter Provider Location Date Check-In Time Check- Out Time Diagnosis Follow Up Vern Michelle PA-C [facility] 2 10:30AM 10:48AM Insurance Includes: Active Insurance Policies Plan Name Member ID Group # Subscriber Relationship Effect lauren Dates 1 - [employer] [place] [id number] Blake Woods 2 - [employer] [place] Medicare [id number] Blake Woods 11/13/2021 - Un known Clinical Notes Includes: Clinical Notes from this encounter No Clinical Notes Recorded
--- OUTSIDE RECORDS SUMMARY | 2023-07-18 12:19 | XMS_ITS | Clinical Summary ---
Author Name Unknown Address [address] [place] [address] [place] [address] Phone Organization [facility] Address [address] [place] [address] Phone Care Team Providers Care Battery Hand Name Role Phone Jerri ARCHER, Evan Layton Unavailable Reason for Visit and Chief Complaint The Chief Complaint is: Right shoulder pain Problems Includes: Problems addressed during this encounter and other active Problems All Visits Onset Date Resolved Date Provider Condition S tatus Joint Pain, Localized in the Right Shoulder 12/21/2020 Evan mckeon MD Active Last Documented On 1 2:43PM ; [facility] Plan of Treatment He is diabetic. He has had a large open cuff repair. He is very stiff today. I recommended injection. I've explained the process of adhesive capsulitis. I've advised this injection and physical therapy. Follow-up appointment will be made. Risk and benefits of the injection were outlined. This is includes increase of blood sugar levels. Right shoulder:The risk and benefits of the injection were outlined to the patient. They understand these and wished to proceed. The anterior portion of the shoulder over the glenohumeral joint was prepped with alcohol and Betadine. Using a 27-gauge needle and 5 cc syringe I pierced the skin breaching the anterior joint capsule. I then aspirated to confirm no presence of a vascular bed I then injected a solution of 40 mg Kenalog / 2 cc of lidocaine/2 cc of Marcaine into the joint. The patient tolerated this procedure well. - Last Documented On 06/22/2021 1:25PM ; [facility], [facility] Instructions to patient Lose weight Last Documented On 10:14AM ; [facility], [facility] Assessments Includes: Assessments from this encounter Findings Right postop frozen shoulder - Last Documented On 06/22/2021 1:25PM ; [facility] Instructions Includes: Instructions from this encounter Instructions to patient Lose weight Last Documented On 2 10:14AM ; [facility] Medical Equipment - Implanted Devices Includes: Current Devices No Medical Equipment Recorded Medications Includes: Medications discussed during this encounter and other current Medications Current Medications (continue as prescribed) Atorvastatin Calcium 40 MG Oral Tablet 08/23/2021 Pr ovider: Diagnosis: Last Documented On 2 2:47PM By Fatmata Otto ; [facility] Carvedilol 12.5 MG Oral Tablet 08/23/2021 Provider: Diagnosis: Last Documented On 2 2:47PM By Fatmata Otto ; [facility] Lisinopril 20 MG Oral Tablet 08/23/2021 Provider: Diagnosis: Last Documented On 2 2:47PM By Fatmata Otto ; [facility] Spiriva HandiHaler 18 MCG Inhalation Capsule 2 Provider: Diagnosis: Last Documented On 2 2:47PM By Fatmata Otto ; [facility] Fluticasone Propionate 50 MCG/ACT Nasal Suspension Provider: Diagnosis: Last Documented On 2 2:47PM By Fatmata Otto ; [facility] glipiZIDE 5 MG Oral Tablet 06/30/2021 Provider: Diagnosis: Last Documented On 2 2:47PM By Fatmata Otto ; [facility] metFORMIN HCl 1000 MG Oral Tablet 12/21/2020 Provide r: Diagnosis: Last Documented On 1 3:04PM By Leta Alejo ; [facility], [facility] Clopidogrel Bisulfate 75 MG Oral Tablet 12/21/2020 Sisi jones: Diagnosis: Last Documented On 1 3:03PM By Leta Alejo ; [facility], [facility] Past Medications on file HYDROcodone-Acetaminophen 5- 325 MG Oral Tablet 04/22/2021 - 05/06/2021 Provider: Evan Guthrie MD Diagnosis: once a day Last Documented On 2 3:11PM By Evan Guthrie ; [facility] Zofran 4 MG Oral Tablet 01/21/2021 - 01/31/2021 Provid er: Evan Guthrie MD Diagnosis: Take 1 tablet every 8 hrs pr n pain Take 1 tablet every 8 hrs prn post op nausea Last Documented On 1 2:04PM By Deysi Valentino ; [facility] Benzoyl Peroxide Wash 5% External Liquid 01/21/2021 - 2021 Provider: Evan moore MD Diagnosis: use as directed by Dr. Guthrie Last Documented On 1 2:04PM By Deysi Valentino ; [facility] Medications Administered Includes: Administered Medications from this encounter No Administered Medications Recorded Vital Signs Includes: Vital Signs from this encounter Vital Name 06/22/2021 10:17A Blood Pressure Sitting (mmHg) 115/71 Pulse Rate-Sitting (bpm) 78 Height (in) 70 Weight (lb) 205 Body Mass Index (kg/m2) 29.4 Body Surface Area (m2) 2.1 Note: hdv Last Documented: On 06/22/2021 10:18A M ; [facility], [facility] Results Includes: Results discussed during this encounter No Results Recorded For Specified Dates History of Present Illness Includes: History of Present Illness from this encounter JOE Esparza is a 66 year old male. - Allergy list reviewed - Problem list reviewed - Medication list reviewed He does have some pain. He has been limited in physical therapy due to insurance purposes. He is very stiff today. He has constant symptoms. Made worse by motion Social History Description Last Updated Non-smoker 12/21/2020 Last Documented On 2 10:14AM ; [facility] Caffeine use 12/21/2020 Last Documented On 2 10:14AM ; [facility] Exercising regularly 12/21/2020 Last Documented On 2 10:14AM ; [facility] No recent change in diet 12/21/2020 Last Documented On 2 10:14AM ; [facility] Not a current smoker. 12/21/2020 Last Documented On 2 10:14AM ; [facility] Not using alcohol 12/21/2020 Last Documented On 2 10:14AM ; [facility] Not using drugs 12/21/2020 Last Documented On 2 10:14AM ; [facility] Smoking Status Unknown Procedures and Surgical History Includes: Procedures from this encounter Procedures Code Diagnosis Performing Provider Service L ocation Service Date use of tobacco assessment performed 1000F Last Documented On 2 10:14AM ; [facility] an X-ray was performed 71906 Last Documented On 2 10:14AM ; [facility] an MRI was performed [id number] Last Documented On 2 10:14AM ; [facility] Medical History Includes: Medical History addressed during this encounter Description Last Updated History of asthma 12/21/2020 Last Documented On 2 10:14AM ; [facility] History of diabetes mellitus 12/21/2020 Last Documented On 2 10:14AM ; [facility] History of Heart Attack / Stroke 021 Last Documented On 2 10:14AM ; [facility] Hypertension 12/21/2020 Last Documented On 2 10:14AM ; [facility] No recent immunization for flu Last Documented On 2 10:14AM ; [facility] No recent immunization for pneumococcal pneumonia 12/21/2020 Last Documented On 2 10:14AM ; [facility] Family History Includes: Family History addressed during this encounter Description Last Updated Diabetes mellitus 12/21/2020 Last Documented On 2 10:14AM ; [facility] Review of Systems Includes: Review of Systems [...] Time Diagnosis Follow Up Vern Michelle PA-C [facility] 2 10:13AM 10:27AM Insurance Includes: Active Insurance Policies Plan Name Member ID Group # Subscriber Relationship Effect lauren Dates 1 - [facility] [id number] Blake Woods 2 - [employer] ([place] Medicare [id number] Blake Woods 11/13/2021 - Un known Clinical Notes Includes: Clinical Notes from this encounter No Clinical Notes Recorded
--- OUTSIDE RECORDS SUMMARY | 2023-07-18 12:19 | XMS_ITS | Clinical Summary ---
Author Name Unknown Address [address] [place] [address] [place] [address] Phone Organization [facility] , [facility] Address [address] [place] [address] Phone Care Team Providers Care Linseed Oil Boiler Name Role Phone Jerri ARCHER, Evan Layton Unavailable [phone] Reason for Referral Date Encounter Description Provider Reason for Referral 08/23/21 Follow Up Vern Michelle PA-C Refe rral To Physician Reason for Visit and Chief Complaint The Chief Complaint is: Right shoulder pain Problems Includes: Problems addressed during this encounter and other active Problems All Visits Onset Date Resolved Date Provider Condition S tatus Joint Pain, Localized in the Right Shoulder 12/21/2020 Evan mckeon MD Active Last Documented On 1 2:43PM ; [facility], [facility] Plan of Treatment Fall Risk Assessment: This [...] with the patient. - Last Documented On 08/25/2021 8:36AM ; [facility], [facility] He is not going to therapy at this point due to financial issues with this. This is going to take a long time to resolve on its own and he understands this. He also understands that blood sugar control will help this. We will see him back as scheduled is no formal restrictions he has been advised to do her daily Home exercise program for his shoulder - Last Documented On 08/25/2021 8:36AM ; [facility] Instructions to patient Lose weight Last Documented On 2 2:45PM ; [facility] Assessments Includes: Assessments from this encounter Findings 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 - Last Documented On 08/25/2021 8:36AM ; [facility], [facility] Instructions Includes: Instructions from this encounter Instructions to patient Lose weight Last Documented On 2 2:45PM ; [facility] Medical Equipment - Implanted Devices Includes: Current Devices No Medical Equipment Recorded Medications Includes: Medications discussed during this encounter and other current Medications Discontinued / Stopped on this date on 12/21/2020 Carvedilol 12.5 MG Oral Tablet Provider: Diagnosis: Last Documented On 2 2:47PM By Fatmata Otto ; [facility] Atorvastatin Calcium 40 MG Oral Tablet Pr ovider: Diagnosis: Last Documented On 2 2:47PM By Fatmata Otto ; [facility] Current Medications (continue as prescribed) Atorvastatin Calcium 40 MG Oral Tablet 08/23/2021 Pr ovider: Diagnosis: Last Documented On 2 2:47PM By Fatmata Otto ; [facility], [facility] Carvedilol 12.5 MG Oral Tablet 08/23/2021 Provider: Diagnosis: Last Documented On 2 2:47PM By Fatmata Otto ; [facility], [facility] Lisinopril 20 MG Oral Tablet 08/23/2021 Provider: Diagnosis: Last Documented On 2 2:47PM By Fatmata Otto ; [facility] Spiriva HandiHaler 18 MCG Inhalation Capsule Provider: Diagnosis: Last Documented On 2 2:47PM By Fatmata Otto ; [facility], [facility] Fluticasone Propionate 50 MCG/ACT Nasal Suspension Provider: Diagnosis: Last Documented On 2 2:47PM By Fatmata Otto ; [facility], [facility] glipiZIDE 5 MG Oral Tablet 06/30/2021 Provider: Diagnosis: Last Documented On 2 2:47PM By Fatmata Otto ; [facility] metFORMIN HCl 1000 MG Oral Tablet 12/21/2020 Provide r: Diagnosis: Last Documented On 1 3:04PM By Leta Alejo ; [facility], [facility] Clopidogrel Bisulfate 75 MG Oral Tablet 12/21/2020 Sisi jones: Diagnosis: Last Documented On 1 3:03PM By Leta Alejo ; [facility], [facility] Past Medications on file HYDROcodone-Acetaminophen 5- 325 MG Oral Tablet 04/22/2021 - 05/06/2021 Provider: Evan Guthrie MD Diagnosis: once a day Last Documented On 2 3:11PM By Evan Guthrie ; [facility], [facility] Zofran 4 MG Oral Tablet 01/21/2021 - 01/31/2021 Provid er: Evan Guthrie MD Diagnosis: Take 1 tablet every 8 hrs pr n pain Take 1 tablet every 8 hrs prn post op nausea Last Documented On 1 2:04PM By Deysi Valentino ; [facility], [facility] Benzoyl Peroxide Wash 5% External Liquid 01/21/2021 - 2021 Provider: Evan moore MD Diagnosis: use as directed by Dr. Guthrie Last Documented On 1 2:04PM By Deysi Valentino ; [facility], [facility] Medications Administered Includes: Administered Medications from this encounter No Administered Medications Recorded Vital Signs Includes: Vital Signs from this encounter Vital Name 08/23/2021 02:52P Blood Pressure Sitting (mmHg) 96/63 Pulse Rate-Sitting (bpm) 77 Height (in) 70 Weight (lb) 205 Body Mass Index (kg/m2) 29.4 Body Surface Area (m2) 2.1 Note: hdv Last Documented: On 08/23/2021 2:53PM ; [facility], [facility] Results Includes: Results discussed during this encounter No Results Recorded For Specified Dates History of Present Illness Includes: History of Present Illness from this encounter JOE Esparza is a 66 year old male. - Allergy list reviewed - Problem list reviewed - Medication list reviewed - Previous history of new onset pain - Patient pain level from 1-10: - No previous treatment. He is in today for follow-up on his shoulder. He still have a lot of stiffness he has not been back in therapy his blood sugars been under control Social History Description Last Updated Not a smoker 08/23/2021 Last Documented On 2 8:36AM ; [facility], [facility] Non-smoker 12/21/2020 Last Documented On 2 2:45PM ; [facility], [facility] Caffeine use 12/21/2020 Last Documented On 2 2:45PM ; [facility], [facility] Exercising regularly 12/21/2020 Last Documented On 2 2:45PM ; [facility], [facility] No recent change in diet 12/21/2020 Last Documented On 2 2:45PM ; [facility], [facility] Not a current smoker. 12/21/2020 Last Documented On 2 2:45PM ; [facility], [facility] Not using alcohol 12/21/2020 Last Documented On 2 2:45PM ; [facility], [facility] Not using drugs 12/21/2020 Last Documented On 2 2:45PM ; [facility], [facility] Smoking Status Unknown Procedures and Surgical History Includes: Procedures from this encounter Procedures Code Diagnosis Performing Provider Service L ocation Service Date use of tobacco assessment performed 1000F Last Documented On 2 2:45PM ; [facility], [facility] patient screened for future fall risk 3288F Last Documented On 2 2:54PM ; [facility], [facility] follow-up visit not in one month with PC P for elevated BP Last Documented On 2 2:54PM ; [facility], [facility] no referral to physician Last Documented On 2 2:54PM ; [facility], [facility] an X-ray was performed [id number] Last Documented On 2 2:45PM ; [facility], [facility] an MRI was performed [id number] Last Documented On 2 2:45PM ; [facility], [facility] Medical History Includes: Medical History addressed during this encounter Description Last Updated History of asthma 12/21/2020 Last Documented On 2 2:45PM ; [facility], [facility] History of diabetes mellitus 12/21/2020 Last Documented On 2 2:45PM ; [facility], [facility] History of Heart Attack / Stroke 021 Last Documented On 2 2:45PM ; [facility] Hypertension 12/21/2020 Last Documented On 2 2:45PM ; [facility] No recent immunization for flu 1 Last Documented On 2 2:45PM ; [facility] No recent immunization for pneumococcal pneumonia 12/21/2020 Last Documented On 2 2:45PM ; [facility] Family History Includes: Family History addressed during this encounter Description Last Updated Diabetes mellitus 12/21/2020 Last Documented On 2 2:45PM ; [facility] Review of Systems Includes: Review [...] Patient Last Documented On 2 2:52PM ; [facility] PCV (Pneumovax 23) 1 12/14/2020 Complete ( Reported) Patient Last Documented On 2 2:52PM ; [facility], [facility] Td 1 08/23/2021 Complete (Refused - Patient objection) [facility], [facility] Last Documented On 2 2:52PM ; [facility], [facility] Allergies Includes: Active Allergies No Known Allergies Encounters Encounter Provider Location Date Check-In Time Check- Out Time Diagnosis Follow Up Vern Michelle PA-C [facility] 2 2:46PM 2:59PM Insurance Includes: Active Insurance Policies Plan Name Member ID Group # Subscriber Relationship Effect lauren Dates 1 - [facility] [id number] Blake Woods 2 - BC[employer] ([place]) Medicare [id number] Blake Woods 11/13/2021 - Un known Clinical Notes Includes: Clinical Notes from this encounter No Clinical Notes Recorded
--- OUTSIDE RECORDS SUMMARY | 2023-07-18 12:19 | XMS_ITS | Clinical Summary ---
Author Name Unknown Address [address] [place] [address] [place] [address] Phone [facility] Address [address] [place] [address] Phone Care Team Providers Care Deputy Chief Sheriff Name Role Phone Jerri ARCHER, Evan Layton Unavailable [phone] Reason for Referral Date Encounter Description Provider Reason for Referral 04/22/21 Post Op Vern Michelle PA-C Refe rral To Physician - see PCP for BP Reason for Visit and Chief Complaint The Chief Complaint is: right shoulder Problems Includes: Problems addressed during this encounter and other active Problems All Visits Onset Date Resolved Date Provider Condition S tatus Joint Pain, Localized in the Right Shoulder 12/21/2020 Evan mckeon MD Active Last Documented On 1 2:43PM ; [facility], [facility] Plan of Treatment Patient is progressing as expected. Rotator cuff repair rehab typically takes between 6- 8 months. The patient will have no restrictions in therapy at this time. They understand the recommendations. Patient will follow-up as scheduled, if there are any issues they can feel free to call the office. - Last Documented On 05/03/2021 11:42AM ; [facility], [facility] Instructions to patient Lose weight Last Documented On 2 2:21PM ; [facility], [facility] Assessments Includes: Assessments from this encounter Findings Cuff repair - Last Documented On 05/03/2021 11:42AM ; [facility], [facility] Instructions Includes: Instructions from this encounter Instructions to patient Lose weight Last Documented On 2 2:21PM ; [facility], [facility] Medical Equipment - Implanted Devices Includes: Current Devices No Medical Equipment Recorded Medications Includes: Medications discussed during this encounter and other current Medications New / Renewed during this visit Evan Guthrie MD on 04/22/2021 HYDROcodone-Acetaminophen 5- 325 MG Oral Tablet Provider: Evan Guthrie MD 14 day supply: 14 tablet, 0 refills Diagnosis: once a day Pharmacy: [address], [address] - Last Documented On 2 3:11PM By Evan Guthrie ; [facility] Current Medications (continue as prescribed) Atorvastatin Calcium 40 MG Oral Tablet 08/23/2021 Pr ovider: Diagnosis: Last Documented On 2 2:47PM By Fatmata Otto ; [facility] Carvedilol 12.5 MG Oral Tablet 08/23/2021 Provider: Diagnosis: Last Documented On 2 2:47PM By Fatmata Otto ; [facility] Lisinopril 20 MG Oral Tablet 08/23/2021 Provider: Diagnosis: Last Documented On 2 2:47PM By Fatmata Otto ; [facility], [facility] Spiriva HandiHaler 18 MCG Inhalation Capsule 2 Provider: Diagnosis: Last Documented On 2 2:47PM By Fatmata Otto ; [facility], [facility] Fluticasone Propionate 50 MCG/ACT Nasal Suspension Provider: Diagnosis: Last Documented On 2 2:47PM By Fatmata Otto ; [facility], [facility] glipiZIDE 5 MG Oral Tablet 06/30/2021 Provider: Diagnosis: Last Documented On 2 2:47PM By Fatmata Otto ; [facility] metFORMIN HCl 1000 MG Oral Tablet 12/21/2020 Provide r: Diagnosis: Last Documented On 1 3:04PM By Leta Alejo ; [facility] Clopidogrel Bisulfate 75 MG Oral Tablet 12/21/2020 P mander: Diagnosis: Last Documented On 1 3:03PM By Leta Alejo ; [facility] Past Medications on file Zofran 4 MG Oral Tablet 01/21/2021 - 01/31/2021 Provid er: Evan Guthrie MD Diagnosis: Take 1 tablet every 8 hrs pr n pain Take 1 tablet every 8 hrs prn post op nausea Last Documented On 1 2:04PM By Deysi Valentino ; [facility], [facility] Benzoyl Peroxide Wash 5% External Liquid 01/21/2021 - 2021 Provider: Evan moore MD Diagnosis: use as directed by Dr. Guthrie Last Documented On 1 2:04PM By Deysi Valentino ; [facility], [facility] Medications Administered Includes: Administered Medications from this encounter No Administered Medications Recorded Vital Signs Includes: Vital Signs from this encounter Vital Name 04/22/2021 02:28P Blood Pressure Sitting R 166/77 Pulse Rate-Sitting (bpm) 81 Height (in) 70 Weight (lb) 208 Body Mass Index (kg/m2) 29.8 Body Surface Area (m2) 2.1 Note: mb Last Documented: On 04/22/2021 2:28PM ; [facility] Results Includes: Results discussed during this encounter No Results Recorded For Specified Dates History of Present Illness Includes: History of Present Illness from this encounter JOE Esparza is a 66 year old male. - Allergy list reviewed - Problem list reviewed - Medication list reviewed Patient is in today for evaluation of the shoulder. He is doing well postoperatively Social History Description Last Updated Non-smoker 12/21/2020 Last Documented On 2 2:21PM ; [facility] Caffeine use 12/21/2020 Last Documented On 2 2:21PM ; [facility] Exercising regularly 12/21/2020 Last Documented On 2 2:21PM ; [facility] No recent change in diet 12/21/2020 Last Documented On 2 2:21PM ; [facility] Not a current smoker. 12/21/2020 Last Documented On 2 2:21PM ; [facility] Not using alcohol 12/21/2020 Last Documented On 2 2:21PM ; [facility] Not using drugs 12/21/2020 Last Documented On 2 2:21PM ; [facility] Smoking Status Unknown Procedures and Surgical History Includes: Procedures from this encounter Procedures Code Diagnosis Performing Provider Service L ocation Service Date use of tobacco assessment performed 1000F Last Documented On 2 2:21PM ; [facility] to physician see PCP for BP Last Documented On 2 2:21PM ; [facility] an X-ray was performed [id number] Last Documented On 2 2:21PM ; [facility] an MRI was performed [id number] Last Documented On 2 2:21PM ; [facility] Medical History Includes: Medical History addressed during this encounter Description Last Updated History of asthma 12/21/2020 Last Documented On 2 2:21PM ; [facility] History of diabetes mellitus 12/21/2020 Last Documented On 2 2:21PM ; [facility] History of Heart Attack / Stroke 021 Last Documented On 2 2:21PM ; [facility] Hypertension 12/21/2020 Last Documented On 2 2:21PM ; [facility] No recent immunization for flu Last Documented On 2 2:21PM ; [facility] No recent immunization for pneumococcal pneumonia 12/21/2020 Last Documented On 2 2:21PM ; [facility] Family History Includes: Family History addressed during this encounter Description Last Updated Diabetes mellitus 12/21/2020 Last Documented On 2 2:21PM ; [facility] Review of Systems Includes: Review of [...] Date Check-In Time Check- Out Time Diagnosis Post Op Vern Michelle PA-C [facility] 2 2:17PM 2:33PM Insurance Includes: Active Insurance Policies Plan Name Member ID Group # Subscriber Relationship Effect lauren Dates 1 - [facility] [id number] Blake Woods 2 - BCBS ([place]) Medicare [id number] Blake Woods 11/13/2021 - Un known Clinical Notes Includes: Clinical Notes from this encounter No Clinical Notes Recorded
[2023-07-18 12:39] VITALS: PULSE 80
[2023-07-18] MEDS: levoFLOXacin 750 MG TABLET PO (12:44)
--- NOTE | 2023-07-19 11:41 | CARE MANAGER ---
Contacted patient related to hoshpital discharge. He states he is doing well, he is weak, but ok. He denies any questions or concerns. He is aware of follow up appointments and on his way to [facility].
== END 2023-07-18 12:56 | disposition home or self-care (01) | DRG 190 ==
LOC: ER 12:22 → 2ND 13:51
PROVIDERS: Internal Medicine Adolescent Medicine; Internal Medicine Pulmonary Disease; Nurse Practitioner Family; Admitting Provider Internal Medicine; Emergency Provider Student in an Organized Health Care Education/Training Program; PCP Family Medicine; Visit Provider Internal Medicine
DX: J47.0 Bronchiectasis with acute lower respiratory infection (principal); J96.21 Acute and chronic respiratory failure with hypoxia; J44.1 Chronic obstructive pulmonary disease with (acute) exacerbation; J44.0 Chronic obstructive pulmonary disease with (acute) lower respiratory infection; J47.1 Bronchiectasis with (acute) exacerbation; J18.9 Pneumonia, unspecified organism; E11.65 Type 2 diabetes mellitus with hyperglycemia; E78.5 Hyperlipidemia, unspecified
CPT/HCPCS: 36415; 71045; 71250; 80048; 80053; 82803; 82947; 82962; 83036; 83605; 84484; 85007; 85025; 87040; 87070; 87077; 87081; 87116; 87186; 87205; 87206; 87220; 87636; 94640; 94667; 94761; 99291; J1956; J3475; J7120

== ENCOUNTER 2023-11-06 09:00 | Outpatient (CLI) | payer MEDICARE, SELFPAY ==
[2023-11-06 21:26] LABS: Creatinine,Urine Random 65 mg/dL (Not Estab.); Microalbumin < 6.000 mg/L (0-16.7)
== END 2023-11-06 23:59 | disposition home or self-care (01) ==
LOC: LAB.DROPOF 11-07 08:34
PROVIDERS: PCP Family Medicine; Visit Provider Family Medicine
DX: E11.65 Type 2 diabetes mellitus with hyperglycemia (principal)
CPT/HCPCS: 82043; 82570

== ENCOUNTER 2023-11-14 16:15 | Observation (INO) | payer MEDICARE, SELFPAY ==
[2023-11-14] VITALS (8 sets, daily range): BP systolic 103–152; BP diastolic 48–73; PULSE 70–96; RESP 16–21; TEMP 37.2–37.5; O2SAT 87–100; BMI 28.0; BMI 27.8
--- NOTE | 2023-11-14 16:15 | [facility].EDCP ---
Discharge Plan Disposition Patient Disposition: Admitted Condition: Good Clinical Impressions Clinical Impression: Acute on chronic respiratory failure with hypoxia and hypercapnia, Community acquired pneumonia, Acute exacerbation of chronic obstructive pulmonary disease Discharge ED Provider: Vick Arias HPI <WILIAN Osborne - Last Filed: 11/14/23 17:39> General Chief Complaint: Shortness of Breath/Dyspnea Stated Complaint: SHORTNESS OF BREATH Time Seen by Provider: 11/14/23 16:15 History of Present Illness HPI narrative: Patient presents for evaluation of shortness of breath and difficulty breathing. Patient has a known history of COPD and is on supplemental oxygen at nighttime. Over the last 24 hours he has had significant shortness of breath and dyspnea to the point where he is even short of breath at rest. He went to his PCPs office where he was noted to have an oxygen saturation in the 80s. He was started on supplemental O2 and transported by EMS. He required 3 L by nasal cannula to maintain a sat above 90%. He reports malaise and feeling unwell but denies cardiac chest pain but does endorse chest wall pain with coughing, he denies chills hemoptysis hematochezia melena hematemesis hematuria. He is a former smoker. He does have a cardiovascular history with previous PCI with stents, history of type 2 diabetes mellitus not on long-term insulin, ASCVD, hypertension and bronchiectasis. Related Data Home Medications ?Medication ?Instructions ?Recorded ?Confirmed carvedilol 12.5 mg tablet 6.25 mg PO BID 09/08/20 11/14/23 clopidogrel 75 mg tablet 75 mg PO DAILY 09/08/20 11/14/23 fluticasone 250 mcg-salmeterol 50 1 ea inhalation BID 09/08/20 11/14/23 mcg/dose blistr powdr for inhalation lisinopril 20 mg tablet 20 mg PO DAILY 09/08/20 11/14/23 tiotropium bromide 18 mcg capsule 1 cap inhalation DAILY 09/08/20 11/14/23 with inhalation device (Spiriva with HandiHaler) atorvastatin 40 mg tablet 40 mg PO DAILY 11/02/21 11/14/23 cetirizine 10 mg tablet 10 mg PO DAILY 11/02/21 11/14/23 ergocalciferol (vitamin D2) 50 mcg 50 mcg PO DAILY 11/02/21 11/14/23 (2,000 unit) tablet multivitamin 1 tab PO DAILY 11/02/21 11/14/23 vitamin B complex 1 tab PO DAILY 11/02/21 11/14/23 vitamin E (dl, acetate) 180 mg 180 mg PO DAILY 11/02/21 11/14/23 (400 unit) capsule nitroglycerin 0.4 mg sublingual 0.4 mg sublingual Q5MINP PRN Chest 01/10/22 11/14/23 tablet Pain hydroxyzine HCl 10 mg tablet 10 mg PO QIDP PRN anxiety 07/17/23 11/14/23 Previous Rx's ?Medication ?Instructions ?Recorded metformin 500 mg tablet,extended See Rx Instructions .Route 08/21/23 release 24 hr .COMPLEX #360 tabs glipizide 5 mg tablet 10 mg (2 x 5 mg) PO DAILY 90 days 10/30/23 #180 tabs pioglitazone 15 mg tablet (Actos) 15 mg PO DAILY #30 tabs 11/06/23 Allergies Allergy/AdvReac Type Severity Reaction Status Date / Time No Known Allergies Allergy Verified 11/14/23 15:27 [facility] <WILIAN Osborne - Last Filed: 11/14/23 17:39> [facility] Disclaimer: The information contained in this section may have been updated after the patient was seen, as this information can be updated by other users. Medical History Acute and chronic respiratory failure with hypoxia Bronchiectasis with (acute) exacerbation Congenital cystic bronchiectasis HTN (hypertension), benign COPD (chronic obstructive pulmonary disease) Atherosclerotic heart disease Asthma Anxiety Type 2 diabetes mellitus with hyperglycemia, without long-term current use of insulin Surgical History History of colonoscopy H/O repair of right rotator cuff Hx of cardiac cath Family History Other Cancer Diabetes Hypertension Social History (Updated 11/14/23 @ 18:54 by Noreen Harvey RN) Smoking Status: Former smoker alcohol intake: never substance use type: denies use current occupational status: retired Travel in the last 8 weeks: None Other Medical History Have you received the Flu Vaccine for this season: No Have you received the Pneumonia Vaccine: Yes <WILIAN Osborne - Last Filed: 11/14/23 17:39> ROS Obtained: Yes Systems reviewed as appropriate & no additional complaints except as documented Physical Exam <WILIAN Osborne - Last Filed: 11/14/23 17:39> General General appearance: alert and in no apparent distress Respiratory Respiratory exam: Present other (Diminished air entry in all 4 [place] late end expiratory wheezes, increased work of breathing but no accessory muscle use.) Cardiovascular Cardiovascular exam: Present regular rate Neurological Exam Neurological exam: Present alert and oriented X3 Lymphatic Lymphatic Findings: no adenopathy HEART Score <WILIAN Osborne - Last Filed: 11/14/23 17:39> HEART Score HEART Score assessment performed?: Yes History (anamnesis): Slightly suspicious ECG: Non-specific disturbance Age: >65 years Risk factors: Atherosclerosis history Troponin: </= normal limit HEART Score: 5 <Vick Arias MD - Last Filed: 11/14/23 19:06> HEART Score HEART Score: 5 Critical Care <WILIAN Osborne - Last Filed: 11/14/23 17:39> Critical Care Time Critical Care Time: No <Vick Arias MD - Last Filed: 11/14/23 19:06> Critical Care Time Critical Care Time: Yes (Respiratory) Attestation: On 11/14/23, the high probability of a clinically significant, sudden or life threatening deterioration of the following system(s) required my full and direct attention, intervention and personal management. The time I documented below is in addition to time spent performing reported procedures but includes the following listed in this critical care notation. Total Time Total Critical Care Time: 35 Medical Decision Making <WILIAN Osborne - Last Filed: 11/14/23 17:39> Medical Records Medical records reviewed: Yes I reviewed the patient's medical records. Bill Inquiry Pt receiving controlled substance: No Vital Signs Vital Signs: 11/14/23 16:15 11/14/23 17:00 11/14/23 18:15 Temperature 99.5 F 98.9 F Temperature Source Oral Oral Pulse Rate 89 85 Pulse Rate [Apical] 96 H Respiratory Rate 18 18 18 Blood Pressure 103/48 L Blood Pressure [Right Arm] 152/73 H Blood Pressure Mean Blood Pressure Mean [Right Arm] 99 Blood Pressure Source Automatic Cuff Blood Pressure Source [Right Arm] Automatic Cuff Blood Pressure Position Supine Blood Pressure Position [Right Arm] Sitting 02 Sat by Pulse Oximetry 87 L 100 Oxygen Delivery Method Nasal Cannula Nasal Cannula Oxygen Flow Rate (LPM) 2 2 11/14/23 18:16 Temperature Temperature Source Pulse Rate 85 Pulse Rate [Apical] Respiratory Rate 18 Blood Pressure 103/48 L Blood Pressure [Right Arm] Blood Pressure Mean 66 Blood Pressure Mean [Right Arm] Blood Pressure Source Blood Pressure Source [Right Arm] Blood Pressure Position Blood Pressure Position [Right Arm] 02 Sat by Pulse Oximetry 95 Oxygen Delivery Method Oxygen Flow Rate (LPM) 2 Lab Data Lab results reviewed: Yes I reviewed the patient's lab results. Labs: Lab Results 11/14/23 16:15: WBC 17.1 H, RBC 4.12 L, Hgb 13.0 L, Hct 40.9 L, MCV 99.4 H, MCH 31.7 H, MCHC 31.8, RDW 14.0, Plt Count 228, MPV 8.1, Neut % (Auto) 84.5 H, Lymph % (Auto) 7.2 L, [place] % (Auto) 7.3, Eos % (Auto) 0.7, Baso % (Auto) 0.4, Neut # (Auto) 14.4 H, Lymph # (Auto) 1.2, [place] # (Auto) 1.2 H, Eos # (Auto) 0.1, Baso # (Auto) 0.1, Total Counted 100, Neutrophils % (Manual) 83 H, Band Neutrophils % 4.0, Lymphocytes % (Manual) 5 L, Monocytes % (Manual) 8, Platelet Estimate Normal, RBC Morphology Normal, Sodium 137, Potassium 4.3, Chloride 96 L, Carbon Dioxide 32 H, Anion Gap 13.3, BUN 26 H, Creatinine 1.00, Estimated Creat Clear 91, Estimated GFR 74, Est GFR ( Amer) 89, Glucose 170 H, Calcium 9.5, Magnesium 1.7, Total Bilirubin 1.2, AST 26, ALT 24, Alkaline Phosphatase 61, Troponin I < 0.01, Total Protein 7.4, Albumin 4.3, Globulin 3.1, Albumin/Globulin Ratio 1.4, Procalcitonin 0.109 11/14/23 16:29: VBG pH 7.33, VBG pCO2 54.4 H, VBG pO2 32.2, VBG HCO3 27.8, VBG Total CO2 29.5 H, VBG O2 Saturation 60.2, VBG Base Excess 1.8, VBG Lactic Acid 1.8 11/14/23 16:15 11/14/23 16:15 Response Orders (Tests/Meds): ED MEDICATIONS Generic Name Dose Route Start Last Admin Trade Name Freq PRN Reason Stop Dose Admin Acetaminophen 650 mg 11/14/23 17:44 Acetaminophen 325mg Tab PO 12/14/23 17:43 Q4HP PRN Fever or Mild Pain (1-3) Albuterol/Ipratropium 3 ml 11/14/23 17:44 Ipratropium/Albuterol 3 Ml [facility] 12/14/23 17:43 Q4HP PRN Shortness Of Breath Albuterol/Ipratropium 3 ml 11/14/23 18:00 11/14/23 18:52 Ipratropium/Albuterol 3 Ml [facility] 12/14/23 17:59 3 ml Q4RT GREG Administration Enoxaparin Sodium 40 mg 11/15/23 09:00 Enoxaparin 40mg/0.4ml Syringe SQ 12/15/23 08:59 DAILY GREG Ceftriaxone Sodium 1 gm/ 50 mls @ 100 mls/hr 11/14/23 17:45 11/14/23 18:10 Sodium Chloride IV 11/24/23 17:44 100 mls/hr Q24H GREG Administration Azithromycin 500 mg/ Sodium 250 mls @ 250 mls/hr 11/14/23 17:45 Chloride IV 11/24/23 17:44 Q24H GREG Insulin Human Lispro 0 unit 11/14/23 21:00 Humalog 100 Units/Ml 10ml Vial (Ssi) SQ 12/14/23 20:59 ACHS GREG Protocol Ondansetron HCl 4 mg 11/14/23 17:44 Ondansetron 4mg/2ml Vial IV 12/14/23 17:43 Q8HP PRN Nausea Sodium Chloride 3 ml 11/14/23 17:20 Sodium Chloride 3% 15ml [facility] 12/14/23 17:19 ONCE PRN INDUCE SPUTUM COLLECTION Discontinued Medications Generic Name Dose Route Start Last Admin Trade Name Freq PRN Reason Stop Dose Admin Acetaminophen 1,000 mg 11/14/23 16:27 11/14/23 16:44 Acetaminophen 1,000mg/100ml Vial IV 11/14/23 16:28 1,000 mg ONCE ONE Administration Albuterol/Ipratropium 9 ml 11/14/23 16:27 11/14/23 16:44 Ipratropium/Albuterol 3 Ml Neb IH 11/14/23 16:28 9 ml ONCE ONE Administration Dexamethasone Sodium Phosphate 10 mg 11/14/23 16:27 11/14/23 16:44 Dexamethasone 4mg/Ml 5ml Mdv IV 11/14/23 16:28 10 mg ONCE ONE Administration Ketorolac Tromethamine 15 mg 11/14/23 16:27 11/14/23 16:44 Ketorolac 30mg/Ml Vial IV 11/14/23 16:28 15 mg ONCE ONE Administration ORDERS Category Date Time Status Chest XR 2 view (NOT portable) [XR chest 2V] Stat Exams 11/14/23 16:17 Completed Basic Metabolic Panel [facility] Lab 11/15/23 06:00 Ordered Basic Metabolic Panel AMLAB Lab 11/16/23 06:00 Ordered Basic Metabolic Panel AMLAB Lab 11/17/23 06:00 Ordered Basic Metabolic Panel AMLAB Lab 11/18/23 06:00 Ordered Basic Metabolic Panel AMLAB Lab 11/19/23 06:00 Ordered CBC w/Auto Diff [Complete Blood Count Auto Diff] Stat Lab 11/14/23 16:15 Completed CMP [Comprehensive Metabolic Panel] Stat Lab 11/14/23 16:15 Completed Complete Blood Count Auto Diff AMLAB Lab 11/15/23 06:00 Ordered Complete Blood Count Auto Diff AMLAB Lab 11/16/23 06:00 Ordered Complete Blood Count Auto Diff AMLAB Lab 11/17/23 06:00 Ordered Complete Blood Count Auto Diff AMLAB Lab 11/18/23 06:00 Ordered Complete Blood Count Auto Diff AMLAB Lab 11/19/23 06:00 Ordered Full Resp Panel w/COVID ([facility]) Routine Lab 11/14/23 16:15 Received HIV (1&2) Antibody Rapid Stat Lab 11/14/23 16:15 Received Hep C Ab with Reflex to RNA Stat Lab 11/14/23 16:15 Completed Magnesium Stat Lab 11/14/23 16:15 Completed Procalcitonin Stat Lab 11/14/23 16:15 Completed Trop I [Troponin I] Stat Lab 11/14/23 16:15 Completed Troponin I Q3H Lab 11/14/23 19:30 Ordered Troponin I Q3H Lab 11/14/23 22:30 Ordered Blood Culture Stat Micro 11/14/23 17:30 Received Sputum Culture & Gram Stain Stat Micro 11/14/23 17:30 Received VBG [Venous Blood Gas] Stat RT 11/14/23 16:29 Completed MDM Narrative Medical Decision Narrative: In summary patient is a 68-year-old male who presents to the emergency department for evaluation of shortness of breath/dyspnea. Patient is normotensive with a heart rate of 96 respiratory rate of 18 satting at 87% on 2 L by nasal cannula initially upon arrival, with a temperature of 99.5. Physical exam is remarkable for increased work of breathing without accessory muscle use, diminished air entry in all 4 [place] with late end expiratory wheezes in all 4 [place] normal heart sounds no dependent edema noted. Differential diagnosis includes COPD exacerbation versus pneumonia etc. Initial workup will be conducted with hematologic labs twelve-lead EKG VBG plain film chest x-ray. Initial interventions include Decadron and DuoNeb supplemental O2 continuous cardiac monitoring and pulse oximetry. Initial workup reviewed by me shows a white count of 17.1 with an absolute neutrophil count of 14.4, VBG with a preserved pH of 7.33 pCO2 of 54.4 with a pO2 of 32.2 and lactate of 1.8 serum glucose of 170 but a normal anion gap a troponin of less than 0.01. Upon repeat evaluation patient is still requiring 3 L by nasal cannula to maintain a sat above 90%. Given this sputum culture started Rocephin and Zithromax started and had interactive discussion with hospital medicine regarding patient management and patient will be admitted for further evaluation and care. <Vick Arias MD - Last Filed: 11/14/23 19:06> Vital Signs Vital Signs: 11/14/23 16:15 11/14/23 17:00 11/14/23 18:15 Temperature 99.5 F 98.9 F Temperature Source Oral Oral Pulse Rate 89 85 Pulse Rate [Apical] 96 H Respiratory Rate 18 18 18 Blood Pressure 103/48 L Blood Pressure [Right Arm] 152/73 H Blood Pressure Mean Blood Pressure Mean [Right Arm] 99 Blood Pressure Source Automatic Cuff Blood Pressure Source [Right Arm] Automatic Cuff Blood Pressure Position Supine Blood Pressure Position [Right Arm] Sitting 02 Sat by Pulse Oximetry 87 L 100 Oxygen Delivery Method Nasal Cannula Nasal Cannula Oxygen Flow Rate (LPM) 2 2 11/14/23 18:16 Temperature Temperature Source Pulse Rate 85 Pulse Rate [Apical] Respiratory Rate 18 Blood Pressure 103/48 L Blood Pressure [Right Arm] Blood Pressure Mean 66 Blood Pressure Mean [Right Arm] Blood Pressure Source Blood Pressure Source [Right Arm] Blood Pressure Position Blood Pressure Position [Right Arm] 02 Sat by Pulse Oximetry 95 Oxygen Delivery Method Oxygen Flow Rate (LPM) 2 Lab Data Labs: Lab Results 11/14/23 16:15: WBC 17.1 H, RBC 4.12 L, Hgb 13.0 L, Hct 40.9 L, MCV 99.4 H, MCH 31.7 H, MCHC 31.8, RDW 14.0, Plt Count 228, MPV 8.1, Neut % (Auto) 84.5 H, Lymph % (Auto) 7.2 L, [place] % (Auto) 7.3, Eos % (Auto) 0.7, Baso % (Auto) 0.4, Neut # (Auto) 14.4 H, Lymph # (Auto) 1.2, [place] # (Auto) 1.2 H, Eos # (Auto) 0.1, Baso # (Auto) 0.1, Total Counted 100, Neutrophils % (Manual) 83 H, Band Neutrophils % 4.0, Lymphocytes % (Manual) 5 L, Monocytes % (Manual) 8, Platelet Estimate Normal, RBC Morphology Normal, Sodium 137, Potassium 4.3, Chloride 96 L, Carbon Dioxide 32 H, Anion Gap 13.3, BUN 26 H, Creatinine 1.00, Estimated Creat Clear 91, Estimated GFR 74, Est GFR ( Amer) 89, Glucose 170 H, Calcium 9.5, Magnesium 1.7, Total Bilirubin 1.2, AST 26, ALT 24, Alkaline Phosphatase 61, Troponin I < 0.01, Total Protein 7.4, Albumin 4.3, Globulin 3.1, Albumin/Globulin Ratio 1.4, Procalcitonin 0.109 11/14/23 16:29: VBG pH 7.33, VBG pCO2 54.4 H, VBG pO2 32.2, VBG HCO3 27.8, VBG Total CO2 29.5 H, VBG O2 Saturation 60.2, VBG Base Excess 1.8, VBG Lactic Acid 1.8 Response Orders (Tests/Meds): ED MEDICATIONS Generic Name Dose Route Start Last Admin Trade Name Fremaribeth PRN Reason Stop Dose Admin Acetaminophen 650 mg 11/14/23 17:44 Acetaminophen 325mg Tab PO 12/14/23 17:43 Q4HP PRN Fever or Mild Pain (1-3) Albuterol/Ipratropium 3 ml 11/14/23 17:44 Ipratropium/Albuterol 3 Ml [facility] 12/14/23 17:43 Q4HP PRN Shortness Of Breath Albuterol/Ipratropium 3 ml 11/14/23 18:00 11/14/23 18:52 Ipratropium/Albuterol 3 Ml [facility] 12/14/23 17:59 3 ml Q4RT GREG Administration Enoxaparin Sodium 40 mg 11/15/23 09:00 Enoxaparin 40mg/0.4ml Syringe SQ 12/15/23 08:59 DAILY GRGE Ceftriaxone Sodium 1 gm/ 50 mls @ 100 mls/hr 11/14/23 17:45 11/14/23 18:10 Sodium Chloride IV 11/24/23 17:44 100 mls/hr Q24H GREG Administration Azithromycin 500 mg/ Sodium 250 mls @ 250 mls/hr 11/14/23 17:45 Chloride IV 11/24/23 17:44 Q24H GREG Insulin Human Lispro 0 unit 11/14/23 21:00 Humalog 100 Units/Ml 10ml Vial (Ssi) SQ 12/14/23 20:59 ACHS GREG Protocol Ondansetron HCl 4 mg 11/14/23 17:44 Ondansetron 4mg/2ml Vial IV 12/14/23 17:43 Q8HP PRN Nausea Sodium Chloride 3 ml 11/14/23 17:20 Sodium Chloride 3% 15ml [facility] 12/14/23 17:19 ONCE PRN INDUCE SPUTUM COLLECTION Discontinued Medications Generic Name Dose Route Start Last Admin Trade Name Fremaribeth PRN Reason Stop Dose Admin Acetaminophen 1,000 mg 11/14/23 16:27 11/14/23 16:44 Acetaminophen 1,000mg/100ml Vial IV 11/14/23 16:28 1,000 mg ONCE ONE Administration Albuterol/Ipratropium 9 ml 11/14/23 16:27 11/14/23 16:44 Ipratropium/Albuterol 3 Ml Neb IH 11/14/23 16:28 9 ml ONCE ONE Administration Dexamethasone Sodium Phosphate 10 mg 11/14/23 16:27 11/14/23 16:44 Dexamethasone 4mg/Ml 5ml Mdv IV 11/14/23 16:28 10 mg ONCE ONE Administration Ketorolac Tromethamine 15 mg 11/14/23 16:27 11/14/23 16:44 Ketorolac 30mg/Ml Vial IV 11/14/23 16:28 15 mg ONCE ONE Administration ORDERS Category Date Time Status Chest XR 2 view (NOT portable) [XR chest 2V] Stat Exams 11/14/23 16:17 Completed Basic Metabolic Panel AMLAB Lab 11/15/23 06:00 Ordered Basic Metabolic Panel AMLAB Lab 11/16/23 06:00 Ordered Basic Metabolic Panel AMLAB Lab 11/17/23 06:00 Ordered Basic Metabolic Panel AMLAB Lab 11/18/23 06:00 Ordered Basic Metabolic Panel AMLAB Lab 11/19/23 06:00 Ordered CBC w/Auto Diff [Complete Blood Count Auto Diff] Stat Lab 11/14/23 16:15 Completed CMP [Comprehensive Metabolic Panel] Stat Lab 11/14/23 16:15 Completed Complete Blood Count Auto Diff AMLAB Lab 11/15/23 06:00 Ordered Complete Blood Count Auto Diff AMLAB Lab 11/16/23 06:00 Ordered Complete Blood Count Auto Diff AMLAB Lab 11/17/23 06:00 Ordered Complete Blood Count Auto Diff AMLAB Lab 11/18/23 06:00 Ordered Complete Blood Count Auto Diff AMLAB Lab 11/19/23 06:00 Ordered Full Resp Panel w/COVID ([facility]) Routine Lab 11/14/23 16:15 Received HIV (1&2) Antibody Rapid Stat Lab 11/14/23 16:15 Received Hep C Ab with Reflex to RNA Stat Lab 11/14/23 16:15 Completed Magnesium Stat Lab 11/14/23 16:15 Completed Procalcitonin Stat Lab 11/14/23 16:15 Completed Trop I [Troponin I] Stat Lab 11/14/23 16:15 Completed Troponin I Q3H Lab 11/14/23 19:30 Ordered Troponin I Q3H Lab 11/14/23 22:30 Ordered Blood Culture Stat Micro 10/01/24 17:30 Received Sputum Culture & Gram Stain Stat Micro 11/14/23 17:30 Received VBG [Venous Blood Gas] Stat RT 11/14/23 16:29 Completed MDM Narrative Medical Decision Narrative: In summary patient is a 68-year-old male who presents to the emergency department for evaluation of shortness of breath/dyspnea. Patient is normotensive with a heart rate of 96 respiratory rate of 18 satting at 87% on 2 L by nasal cannula initially upon arrival, with a temperature of 99.5. Physical exam is remarkable for increased work of breathing without accessory muscle use, diminished air entry in all 4 [place] with late end expiratory wheezes in all 4 [place] normal heart sounds no dependent edema noted. Differential diagnosis includes COPD exacerbation versus pneumonia etc. Initial workup will be conducted with hematologic labs twelve-lead EKG VBG plain film chest x-ray. Initial interventions include Decadron and DuoNeb supplemental O2 continuous cardiac monitoring and pulse oximetry. Initial workup reviewed by me shows a white count of 17.1 with an absolute neutrophil count of 14.4, VBG with a preserved pH of 7.33 pCO2 of 54.4 with a pO2 of 32.2 and lactate of 1.8 serum glucose of 170 but a normal anion gap a troponin of less than 0.01. Upon repeat evaluation patient is still requiring 3 L by nasal cannula to maintain a sat above 90%. Given this sputum culture started Rocephin and Zithromax started and had interactive discussion with hospital medicine regarding patient management and patient will be admitted for further evaluation and care. I was consulted by the ROBERTO, and we discussed the complexity of the problems being addressed. I approved the treatment and management plan for this patient's care in the Emergency Department, thus performing a substantive portion of the medical decision making. Vick Arias MD
--- NOTE | 2023-11-14 16:16 | PC.NURSE ---
PT O2 INCREASED TO 4L/NC
--- NOTE | 2023-11-14 16:17 | XR_ITS ---
PROCEDURE INFORMATION: Exam: XR Chest Exam date and time: 11/14/2023 4:19 PM Age: 68 years old Clinical indication: Shortness of breath; Additional info: Acute on chronic respiratory failure TECHNIQUE: Imaging protocol: Radiologic exam of the chest. Views: 2 views. COMPARISON: CT CHEST WO CON 07/17/2023 1:20 PM FINDINGS: Lungs: Multifocal parenchymal consolidation is a chronic finding in this patient, a superimposed acute opacity is not definitively seen but correlation with clinical symptoms is suggested. Calcified granuloma at the right lung apex. Pleural spaces: No large effusion or pneumothorax. Heart/Mediastinum: Stable cardiac and mediastinal contours. Bones/joints: No evidence of acute osseous abnormalities within the visualized portions of the thoracic spine and ribs. Osseous structures appear appropriate for patient age. IMPRESSION: Multifocal parenchymal consolidation is a chronic finding in this patient, a superimposed acute opacity is not definitively seen but correlation with clinical symptoms is suggested.
--- NOTE | 2023-11-14 16:20 | ECG_ITS ---
APPROVED REPORT Exam: Resting ECG HR:94 bpm ECG Measurements Heart Rate 94 AXES NM 174 P 68 QRSd 93 QRS 80 QT 304 T 81 QTc 356 Conclusion Sinus rhythm Electronically signed by : HEATH GODINEZ, 11/14/2023 18:58:29
--- NOTE | 2023-11-14 16:31 | PC.NURSE ---
Respiratory notified of VBG.
[2023-11-14 16:32] LABS: Basophils # 0.1 K/mm3 (0-0.2); Basophils % 0.4 % (0.1-2.0); Bordetella Pertussis Not Detected (NotDetected); Chlamydophila Pneumoniae, PCR Not Detected (NotDetected); Coronavirus 19, PCR Not Detected (NotDetected); Eosinophils # 0.1 K/mm3 (0.0-0.4); Eosinophils % 0.7 % (0.1-12.0); Hematocrit 40.9 % (42.0-52.0); Human Metapneumovirus Not Detected (NotDetected); Influenza A, PCR Not Detected (NotDetected); Influenza AH1, 2009 Not Detected (NotDetected); Influenza AH1, PCR Not Detected (NotDetected); Influenza AH3,PCR Not Detected (NotDetected); Influenza B, PCR Not Detected (NotDetected); Lymphocytes # 1.2 K/mm3 (0.7-4.5); Lymphocytes % 7.2 % (10-50); Mean Corpuscular HGB Conc 31.8 g/dL (31.8-35.4); Mean Corpuscular Hemoglobin 31.7 pg (27.0-31.2); Mean Corpuscular Volume 99.4 fl (80-94); Mean Platelet Volume 8.1 fl (7.4-10.4); Monocytes # 1.2 K/mm3 (0.1-1.0); Monocytes % 7.3 % (1.7-9.3); Mycoplasma Pneumoniae, PCR Not Detected (NotDetected); Neutrophils # 14.4 K/mm3 (1.8-7.8); Neutrophils % 84.5 % (37.0-80.0); Parainfluenza 1, PCR Not Detected (NotDetected); Parainfluenza 2, PCR Not Detected (NotDetected); Parainfluenza 3, PCR Not Detected (NotDetected); Parainfluenza 4, PCR Not Detected (NotDetected); Platelet Count 228 K/mm3 (142-424); Red Blood Count 4.12 M/mm3 (4.60-6.20); Respiratory Syncytial Virus Not Detected (NotDetected); Rhinovirus/Enterovirus Not Detected (NotDetected); White Blood Count 17.1 K/mm3 (4.8-10.8)
[2023-11-14 16:34] LABS: Adenovirus,PCR Not Detected (NotDetected); Coronavirus 229E Not Detected (NotDetected); Coronavirus NL63 Not Detected (NotDetected); Coronavirus OC43 Not Detected (NotDetected); Coronovirus HKU1,PCR Not Detected (NotDetected); MANUAL DIFFERENTIAL MANUAL DIFFERENTIAL (MANUAL DIFF)
[2023-11-14 16:42] LABS: Albumin Level 4.3 g/dl (3.5-5.0); Chloride 96 mmol/L (98-107); Sodium 137 mmol/L (136-145)
[2023-11-14 16:43] LABS: Potassium 4.3 mmoL/L (3.5-5.1)
[2023-11-14] MEDS: ACETAMINOPHEN 1,000MG/100ML VIAL 1000 MG IV (16:44)
[2023-11-14] MEDS: IPRATROPIUM/ALBUTEROL 3 ML NEB 9 ML IH (16:44)
[2023-11-14] MEDS: KETOROLAC 30MG/ML VIAL 15 MG IV (16:44)
[2023-11-14] MEDS: DEXAMETHASONE 4MG/ML 5ML MDV 10 MG IV (16:44)
[2023-11-14 16:45] LABS: Alanine Aminotransferase 24 U/L (12-78); Albumin/Globulin Ratio 1.4 (1.1-1.8); Alkaline Phosphatase 61 U/L (38-126); Anion Gap 13.3 mEq/L (5-15); Aspartate Amino Transferase 26 U/L (17-59); Bilirubin,Total 1.2 mg/dl (0.2-1.3); Blood Urea Nitrogen 26 mg/dl (9-20); Carbon Dioxide 32 mmol/L (22.0-30.0); Creatinine Clearance Estimated 91 mL/min (50-200); Estimated Glomerular Filt Rate 74 ml/min (>60); GFR (African American) 89 ML/MIN (>60); Globulin 3.1 g/dL (1.3-3.2); Magnesium 1.7 mg/dl (1.6-2.3); Total Protein,Serum 7.4 g/dl (6.3-8.2)
[2023-11-14 16:46] LABS: Calcium 9.5 mg/dl (8.4-10.2); Glucose 170 mg/dl (74-100)
[2023-11-14 16:49] LABS: Lactate Venous 1.8 mmol/L (0.4-2.0); VBG Base Excess 1.8 mmol/L (-2.4-2.3); VBG HCO3 27.8 mmol/L (23-30); VBG Oxygen Saturation 60.2 % (50-70); VBG PCO2 54.4 mmol/L (35-51); VBG PH 7.33 mmol/L (7.31-7.41); VBG PO2 32.2 mmol/L (28-40); VBG Total CO2 29.5 mmol/L (23-27)
[2023-11-14 16:59] LABS: Troponin I < 0.01 ng/ml (0.00-0.034)
[2023-11-14 17:05] LABS: Lymphocytes % 5 % (10-50); Monocytes % 8 % (2-9); Neutrophils % 83 % (42-76); Total Cells Counted 100
[2023-11-14 17:06] LABS: Platelet Estimate Normal; RBC Morphology Normal
--- NOTE | 2023-11-14 18:07 | PC.NURSE ---
ATTEMPTED TO CALL REPORT, NO ANSWER
[2023-11-14 18:10] LABS: Procalcitonin 0.109 ng/mL (0.0-2.0)
[2023-11-14] MEDS: CEFTRIAXONE 1 GM 1 GM in 0.9 % SODIUM CHLORIDE 50 ML IV (18:10)
--- NOTE | 2023-11-14 18:14 | PC.NURSE ---
Report given to RON Miguel on Med Surg.
[2023-11-14] MEDS: IPRATROPIUM/ALBUTEROL 3 ML NEB IH ×2 (18:52→23:45)
[2023-11-14] MEDS: AZITHROMYCIN 500 MG in 0.9 % SODIUM CHLORIDE 250 ML 250 MG IV (19:08)
[2023-11-14] MEDS: humaLOG 100 UNITS/ML 10ML VIAL (SSI) SQ (20:05)
[2023-11-14 20:07] LABS: HIV (1&2) Antibody Rapid NONREACTIVE (NONREACTIVE)
--- NOTE | 2023-11-14 20:33 | EXP.HP ---
History of Present Illness *Admission Date: 11/14/23 *Reason for visit:: COPD exacerbation *History of present illness: Blake Esparza is a year old male with a medical history significant for COPD (2L baseline), CAD s/p stents, type 2 diabetes, hypertension presents with several day onset of shortness of breath. Has had to use his home albuterol more with some improvement. Workup in the significant for WBC 17.1, compensated VBG with hypercapnia, normal troponin and procal. CXR shows chornic vs acute multifocal opacity. Requiring 3L, baseline 2L. Case discussed with ED provider and decision was made to admit patient for acute on chronic hypoxic repiratory failure from COPD exacerbation. [facility] Disclaimer: The information contained in this section may have been updated after the patient was seen, as this information can be updated by other users. Medical History Acute and chronic respiratory failure with hypoxia Bronchiectasis with (acute) exacerbation Congenital cystic bronchiectasis HTN (hypertension), benign COPD (chronic obstructive pulmonary disease) Atherosclerotic heart disease Asthma Anxiety Type 2 diabetes mellitus with hyperglycemia, without long-term current use of insulin Surgical History History of colonoscopy H/O repair of right rotator cuff Hx of cardiac cath Family History Other Cancer Diabetes Hypertension Social History (Updated 11/14/23 @ 18:54 by Noreen Harvey RN) Smoking Status: Former smoker alcohol intake: never substance use type: denies use current occupational status: retired Travel in the last 8 weeks: None Other Medical History Have you received the Flu Vaccine for this season: No Have you received the Pneumonia Vaccine: Yes Meds Home Medications and Allergies Home Medications ?Medication ?Instructions ?Recorded ?Confirmed ?Type carvedilol 12.5 mg tablet 6.25 mg PO BID 09/08/20 11/14/23 History clopidogrel 75 mg tablet 75 mg PO DAILY 09/08/20 11/14/23 History fluticasone 250 mcg-salmeterol 50 1 ea inhalation BID 09/08/20 11/14/23 History mcg/dose blistr powdr for inhalation lisinopril 20 mg tablet 20 mg PO DAILY 09/08/20 11/14/23 History tiotropium bromide 18 mcg capsule 1 cap inhalation DAILY 09/08/20 11/14/23 History with inhalation device (Spiriva with HandiHaler) atorvastatin 40 mg tablet 40 mg PO DAILY 11/02/21 11/14/23 History cetirizine 10 mg tablet 10 mg PO DAILY 11/02/21 11/14/23 History ergocalciferol (vitamin D2) 50 mcg 50 mcg PO DAILY 11/02/21 11/14/23 History (2,000 unit) tablet multivitamin 1 tab PO DAILY 11/02/21 11/14/23 History vitamin B complex 1 tab PO DAILY 11/02/21 11/14/23 History vitamin E (dl, acetate) 180 mg 180 mg PO DAILY 11/02/21 11/14/23 History (400 unit) capsule nitroglycerin 0.4 mg sublingual 0.4 mg sublingual Q5MINP PRN Chest 01/10/22 11/14/23 History tablet Pain hydroxyzine HCl 10 mg tablet 10 mg PO QIDP PRN anxiety 07/17/23 11/14/23 History metformin 500 mg tablet,extended See Rx Instructions .Route 08/21/23 11/14/23 Rx release 24 hr .COMPLEX #360 tabs glipizide 5 mg tablet 10 mg (2 x 5 mg) PO DAILY 90 days 10/30/23 11/14/23 Rx #180 tabs pioglitazone 15 mg tablet (Actos) 15 mg PO DAILY #30 tabs 11/06/23 11/14/23 Rx New Prescriptions to Start Prescriptions: Allergies Allergy/AdvReac Type Severity Reaction Status Date / Time No Known Allergies Allergy Verified 11/14/23 15:27 Exam Data for Last 24 hours Vital signs and Labs for Last 24 Hours: Temp Pulse Resp BP Pulse Ox O2 Del Method O2 Flow Rate 98.9 F 83 21 112/58 L 94 L Nasal Cannula 2 11/14/23 18:15 11/14/23 18:55 11/14/23 18:55 11/14/23 18:55 11/14/23 18:55 11/14/23 18:55 11/14/23 18:55 Laboratory Results - last 24 hr 11/14/23 16:15: WBC 17.1 H, RBC 4.12 L, Hgb 13.0 L, Hct 40.9 L, MCV 99.4 H, MCH 31.7 H, MCHC 31.8, RDW 14.0, Plt Count 228, MPV 8.1, Neut % (Auto) 84.5 H, Lymph % (Auto) 7.2 L, [place] % (Auto) 7.3, Eos % (Auto) 0.7, Baso % (Auto) 0.4, Neut # (Auto) 14.4 H, Lymph # (Auto) 1.2, [place] # (Auto) 1.2 H, Eos # (Auto) 0.1, Baso # (Auto) 0.1, Total Counted 100, Neutrophils % (Manual) 83 H, Band Neutrophils % 4.0, Lymphocytes % (Manual) 5 L, Monocytes % (Manual) 8, Platelet Estimate Normal, RBC Morphology Normal, Sodium 137, Potassium 4.3, Chloride 96 L, Carbon Dioxide 32 H, Anion Gap 13.3, BUN 26 H, Creatinine 1.00, Estimated Creat Clear 91, Estimated GFR 74, Est GFR ( Amer) 89, Glucose 170 H, Calcium 9.5, Magnesium 1.7, Total Bilirubin 1.2, AST 26, ALT 24, Alkaline Phosphatase 61, Troponin I < 0.01, Total Protein 7.4, Albumin 4.3, Globulin 3.1, Albumin/Globulin Ratio 1.4, Procalcitonin 0.109, Chlamy pneumoniae PCR Not detected, Adenovirus (PCR) Not detected, B. pertussis DNA (PCR) Not detected, Coronavirus OC43 (PCR) Not detected, Coronavirus HKU1 (PCR) Not detected, Coronavirus 229E (PCR) Not detected, SARS-CoV-2 (PCR) Not detected, Coronavirus NL63 (PCR) Not detected, HIV 1&2 Antibody Rapid Nonreactive, Human Metapneumovir PCR Not detected, Influenza A (H1) PCR Not detected, Influ A (H1N1/09) PCR Not detected, Influenza A (H3) PCR Not detected, Influenza Type A (PCR) Not detected, Influenza Type B (PCR) Not detected, M. pneumoniae (PCR) Not detected, Parainfluenza 1 (PCR) Not detected, Parainfluenza 2 (PCR) Not detected, Parainfluenza 3 (PCR) Not detected, Parainfluenza 4 (PCR) Not detected, RSV (PCR) Not detected, Entero/Rhino (PCR) Not detected 11/14/23 16:29: VBG pH 7.33, VBG pCO2 54.4 H, VBG pO2 32.2, VBG HCO3 27.8, VBG Total CO2 29.5 H, VBG O2 Saturation 60.2, VBG Base Excess 1.8, VBG Lactic Acid 1.8 I & O for Last 24 hours: Intake & Output 11/11/23 11/12/23 11/13/23 11/14/23 23:59 23:59 23:59 23:59 Weight 93.157 kg Constitutional Constitutional: no acute distress *Routine HEENT Exam Head: Present normocephalic Eye: Present EOMI and PERRL ENT: Present mucous membranes moist *Routine Neck Exam Neck: Present supple; Absent lymphadenopathy *Routine Respiratory Exam Respiratory: Present wheezes Comments: Mild bilateral wheezing. *Routine Cardiovascular Exam Cardiovascular: Present RRR *Routine Abdominal Exam Abdominal: Present soft and normoactive bowel sounds; Absent tenderness *Routine Rectal Exam Rectal:: deferred *Routine Genitalia Exam Genitalia:: deferred *Routine Extremities Exam Extremities: Absent cyanosis, clubbing or edema *Routine Skin Exam Skin: Present warm; Absent rash *Routine Neurological Exam Neurological: Present alert and oriented X3 Assessment and Plan *Assessment and plan (1) Acute exacerbation of chronic obstructive pulmonary disease: Status: Acute Category: Medical Code(s): J44.1 - Chronic obstructive pulmonary disease with (acute) exacerbation (2) Community acquired pneumonia: Status: Acute Category: Medical Code(s): J18.9 - Pneumonia, unspecified organism Plan Blake Esparza is a year old male with a medical history significant for COPD (2L baseline), CAD s/p stents, type 2 diabetes, hypertension presents with several day onset of shortness of breath. Has had to use his home albuterol more with some improvement. Workup in the significant for WBC 17.1, compensated VBG with hypercapnia, normal troponin and procal. CXR shows chornic vs acute multifocal opacity. Requiring 3L, baseline 2L. Case discussed with ED provider and decision was made to admit patient for acute on chronic hypoxic repiratory failure from COPD exacerbation. #Acute on chronic hypoxic respiratory failure #COPD exacerbation # Suspected CAP - Duonebs, Pulmicort, prednisone. - Ceftriaxone, azirthromycin. - Monitor WBC. Normal respiratory panel. - Wean O2 as tolerated. CAD s/p stents - Aspirin, statin. #Type 2 diabetes - LDSSI, ACHS glucose checks. #Hypertension - Resume home meds when reconciled. Full code Lovenox 40mg
[2023-11-14 20:48] LABS: Troponin I < 0.01 ng/ml (0.00-0.034)
[2023-11-14] MEDS: ATORVASTATIN 40MG TABLET 40 MG PO (22:20)
[2023-11-15 01:01] LABS: Troponin I < 0.01 ng/ml (0.00-0.034)
[2023-11-15 04:00] VITALS: BP 110/57; PULSE 72; RESP 17; TEMP 36.7; O2SAT 95; BMI 28.1
[2023-11-15] MEDS: humaLOG 100 UNITS/ML 10ML VIAL (SSI) SQ ×2 (06:55→11:32)
[2023-11-15] MEDS: IPRATROPIUM/ALBUTEROL 3 ML NEB IH ×3 (06:58→11:22)
[2023-11-15] MEDS: BUDESONIDE 0.5MG/2ML NEB 0.5 MG IH (06:58)
[2023-11-15 07:02] VITALS: PULSE 75; PULSE 78; O2SAT 95
[2023-11-15 07:02] LABS: Chloride 100 mmol/L (98-107); Potassium 4.6 mmoL/L (3.5-5.1); Sodium 136 mmol/L (136-145)
[2023-11-15 07:05] LABS: Blood Urea Nitrogen 38 mg/dl (9-20); Creatinine Clearance Estimated 83 mL/min (50-200); Estimated Glomerular Filt Rate 66 ml/min (>60); GFR (African American) 80 ML/MIN (>60)
[2023-11-15 07:06] LABS: Anion Gap 14.6 mEq/L (5-15); Calcium 9.6 mg/dl (8.4-10.2); Carbon Dioxide 26 mmol/L (22.0-30.0)
[2023-11-15 07:19] LABS: Glucose 459 mg/dl (74-100)
[2023-11-15 08:00] VITALS: BP 147/74; PULSE 81; RESP 18; TEMP 36.4; O2SAT 100
[2023-11-15 08:22] LABS: Basophils % 0.1 % (0.1-2.0); Eosinophils % 0.1 % (0.1-12.0); Hematocrit 42.4 % (42.0-52.0); Hemoglobin 13.1 g/dL (14.1-18.0); Lymphocytes # 0.5 K/mm3 (0.7-4.5); Lymphocytes % 3.9 % (10-50); Mean Corpuscular Hemoglobin 31.7 pg (27.0-31.2); Mean Corpuscular Volume 102.4 fl (80-94); Mean Platelet Volume 9.5 fl (7.4-10.4); Monocytes # 0.5 K/mm3 (0.1-1.0); Monocytes % 3.3 % (1.7-9.3); Neutrophils % 92.6 % (37.0-80.0); Platelet Count 199 K/mm3 (142-424); Red Blood Count 4.14 M/mm3 (4.60-6.20); Red Cell Distribution Width 13.6 % (11.5-17.5); White Blood Count 14.1 K/mm3 (4.8-10.8)
[2023-11-15 08:28] LABS: MANUAL DIFFERENTIAL MANUAL DIFFERENTIAL (MANUAL DIFF)
[2023-11-15] MEDS: ASPIRIN EC 81MG TABLET 81 MG PO (08:51)
[2023-11-15] MEDS: predniSONE 20MG TAB 40 MG PO (08:51)
[2023-11-15] MEDS: ENOXAPARIN 40MG/0.4ML SYRINGE 40 MG SQ (08:51)
[2023-11-15 09:11] LABS: Lymphocytes % 4 % (10-50); Macrocytosis 1+; Monocytes % 1 % (2-9); Neutrophils % 95 % (42-76); Platelet Estimate Normal; Total Cells Counted 100
[2023-11-15 11:22] VITALS: PULSE 74; PULSE 78
[2023-11-15] MEDS: INSULIN GLARGINE 100 UNITS/ML 10ML VIAL 15 UNIT SQ (11:57)
[2023-11-15 12:00] VITALS: BP 126/63; PULSE 79; RESP 18; TEMP 36.8; O2SAT 90
--- NOTE | 2023-11-15 12:01 | HMH.PHAINT1 ---
Pharmacy Intervention Comments: Home medication list verified using list from pharmacy and patient interview.
[2023-11-16 05:22] LABS: HCV Ab Non Reactive (Non Reactive)
--- NOTE | 2023-11-16 12:57 | CARE MANAGER ---
Contacted patient related to hospital discharge. He states that he is doing well. He has new medications and denies questions or concerns. RON Rapp
--- NOTE | 2023-11-23 18:51 | P.DS_ITS ---
General Admission date:: 11/14/23 Discharge date: 11/15/23 HPI HPI HPI: Blake Esparza is a year old male with a medical history significant for COPD (2L baseline), CAD s/p stents, type 2 diabetes, hypertension presents with several day onset of shortness of breath. Has had to use his home albuterol more with some improvement. Workup in the significant for WBC 17.1, compensated VBG with hypercapnia, normal troponin and procal. CXR shows chornic vs acute multifocal opacity. Requiring 3L, baseline 2L. Case discussed with ED provider and decision was made to admit patient for acute on chronic hypoxic repiratory failure from COPD exacerbation. Hospital Course Hospital Course Hospital Course: Blake Esparza is a year old male with a medical history significant for COPD (2L baseline), CAD s/p stents, type 2 diabetes, hypertension presents with several day onset of shortness of breath. Has had to use his home albuterol more with some improvement. Workup in the significant for WBC 17.1, compensated VBG with hypercapnia, normal troponin and procal. CXR shows chornic vs acute multifocal opacity. Requiring 3L, baseline 2L. Case discussed with ED provider and decision was made to admit patient for acute on chronic hypoxic repiratory failure from COPD exacerbation. #Acute on chronic hypoxic respiratory failure #COPD exacerbation # Suspected CAP - Improved with Duonebs, Pulmicort, and prednisone. Weaned back to baseline 2L with appropriate saturations. - Discharged with 3 more days of prednisone 40mg and azithromycin. - Will follow-up with PCP within 1 week. CAD s/p stents - Aspirin, statin. #Type 2 diabetes - Continue home pioglitazone, glipizide. #Hypertension - Continue home lisinopril, carvedilol. Exam Data for Last 24 hours Vital signs and Labs for Last 24 Hours: Temp Pulse Resp BP Pulse Ox O2 Del Method O2 Flow Rate 98.2 F 79 18 126/63 90 L Room Air 2 11/15/23 12:00 11/15/23 12:00 11/15/23 12:00 11/15/23 12:00 11/15/23 12:00 11/15/23 13:00 11/15/23 09:00 Constitutional Constitutional: no acute distress *Routine HEENT Exam Head: Present normocephalic Eye: Present EOMI and PERRL ENT: Present mucous membranes moist *Routine Neck Exam Neck: Present supple; Absent lymphadenopathy *Routine Respiratory Exam Respiratory: Present CTA bilaterally *Routine Cardiovascular Exam Cardiovascular: Present RRR *Routine Abdominal Exam Abdominal: Present soft and normoactive bowel sounds; Absent tenderness *Routine Extremities Exam Extremities: Absent cyanosis, clubbing or edema *Routine Skin Exam Skin: Present warm; Absent rash *Routine Neurological Exam Neurological: Present alert and oriented X3 DS: Diagnosis Discharge Diagnosis (1) Acute exacerbation of chronic obstructive pulmonary disease: Status: Acute Code(s): J44.1 - Chronic obstructive pulmonary disease with (acute) exacerbation (2) Community acquired pneumonia: Status: Acute Code(s): J18.9 - Pneumonia, unspecified organism Meds Home Medications and Allergies Home Medications ?Medication ?Instructions ?Recorded ?Confirmed ?Type carvedilol 12.5 mg tablet 6.25 mg PO BID 09/08/20 11/23/23 History clopidogrel 75 mg tablet 75 mg PO DAILY 09/08/20 11/23/23 History fluticasone 250 mcg-salmeterol 50 1 ea inhalation BID 09/08/20 11/23/23 History mcg/dose blistr powdr for inhalation lisinopril 20 mg tablet 20 mg PO DAILY 09/08/20 11/23/23 History tiotropium bromide 18 mcg capsule 1 cap inhalation DAILY 09/08/20 11/23/23 History with inhalation device (Spiriva with HandiHaler) atorvastatin 40 mg tablet 40 mg PO DAILY 11/02/21 11/23/23 History cetirizine 10 mg tablet 10 mg PO DAILY 11/02/21 11/23/23 History ergocalciferol (vitamin D2) 50 mcg 50 mcg PO DAILY 11/02/21 11/23/23 History (2,000 unit) tablet multivitamin 1 tab PO DAILY 11/02/21 11/23/23 History vitamin B complex 1 tab PO DAILY 11/02/21 11/23/23 History vitamin E (dl, acetate) 180 mg 180 mg PO DAILY 11/02/21 11/23/23 History (400 unit) capsule nitroglycerin 0.4 mg sublingual 0.4 mg sublingual Q5MINP PRN Chest 01/10/22 11/23/23 History tablet Pain hydroxyzine HCl 10 mg tablet 10 mg PO QIDP PRN anxiety 07/17/23 11/23/23 History glipizide 5 mg tablet 10 mg (2 x 5 mg) PO DAILY 90 days 10/30/23 11/23/23 Rx #180 tabs pioglitazone 15 mg tablet (Actos) 15 mg PO DAILY #30 tabs 11/06/23 11/23/23 Rx insulin lispro 100 unit/mL 1 sliding scale dose SQ ACHS #5 mL 11/15/23 11/23/23 Rx subcutaneous solution (Humalog U-100 Insulin) metformin 500 mg tablet,extended See Rx Instructions .Route 11/16/23 11/23/23 Rx release 24 hr .COMPLEX #360 tabs New Prescriptions to Start Prescriptions: insulin lispro [Humalog U-100 Insulin] Lamont Velasco Allergies Allergy/AdvReac Type Severity Reaction Status Date / Time No Known Allergies Allergy Verified 11/23/23 13:00 Discharge Plan Disposition Patient Disposition: Home, Self-Care Condition: Fair Follow up Plan Follow up with: Abelardo Jennings MD [Primary Care Provider] - 11/23/23 11:30 am Prescriptions/Medication Reconciliation: New insulin lispro [Humalog U-100 Insulin] 100 unit/mL Solution 1 sliding scale dose SQ ACHS Qty: 5 0RF Rx Instructions: Insulin Corrective Low-Dose Regimen Condition Dose/Route Instruction Fingerstick Blood Glucose Insulin Units 151-200 mg/dl 2 unit/SQ 201-250 mg/dl 4 units/SQ 251-300 mg/dl 6 units/SQ 301-350 mg/dl 8 units/SQ 351-400 mg/dl 10 units/SQ 401-500mg/dl 12 units/SQ > 500mg/dl CALL Continued Spiriva with HandiHaler 18 mcg capsule, w/inhalation device 1 cap INHALATION DAILY clopidogrel 75 mg tablet 75 mg PO DAILY lisinopril 20 mg tablet 20 mg PO DAILY carvedilol 12.5 mg tablet 6.25 mg PO BID fluticasone propion-salmeterol 250-50 mcg/dose blister with device 1 ea INHALATION BID atorvastatin 40 mg tablet 40 mg PO DAILY multivitamin Tablet 1 tab PO DAILY cetirizine 10 mg tablet 10 mg PO DAILY vitamin B complex Tablet 1 tab PO DAILY vitamin E (dl, acetate) 180 mg (400 unit) capsule 180 mg PO DAILY ergocalciferol (vitamin D2) 50 mcg (2,000 unit) tablet 50 mcg PO DAILY nitroglycerin 0.4 mg tablet, sublingual 0.4 mg sublingual Q5MINP PRN (Reason: Chest Pain) glipizide 5 mg tablet 10 mg PO DAILY 90 Days Qty: 180 1RF pioglitazone [Actos] 15 mg tablet 15 mg PO DAILY Qty: 30 2RF hydroxyzine HCl 10 mg tablet 10 mg PO QIDP PRN (Reason: anxiety) No Action metformin 500 mg tablet extended release 24 hr See Rx Instructions .ROUTE .COMPLEX Qty: 360 0RF Dose Instruction: Take 2 tablets by mouth twice daily Rx Instructions: Take 2 tablets by mouth twice daily Problem Reconciliation Problems Reviewed?: Yes Patient Discharge Instructions ACTIVITY: Continue current activity DIET: continue same diet Additional Instructions: Insulin Corrective Low-Dose Regimen Fingerstick Blood Glucose Insulin Units ? 151-200 mg/dl 2 unit/SQ ? 201-250 mg/dl 4 units/SQ ? 251-300 mg/dl 6 units/SQ ? 301-350 mg/dl 8 units/SQ ? 351-400 mg/dl 10 units/SQ ? 401-500 mg/dl 12 units/SQ ? > 500 mg/dl CALL Patient Instructions: Pneumonia-Adult, Chronic Obstructive Pulmonary Disease, Respiratory Failure Print Language: Wallisian Providers Primary Care Provider: Abelardo Jennings Admit Provider: Lamont Velasco Attending Provider: Lamont Velasco
== END 2023-11-15 15:17 | disposition home or self-care (01) ==
LOC: ER 17:30 → 2ND 18:17
PROVIDERS: Physician Assistant; Admitting Provider Student in an Organized Health Care Education/Training Program; Emergency Provider Emergency Medicine; PCP Family Medicine; Visit Provider Student in an Organized Health Care Education/Training Program
DX: J44.1 Chronic obstructive pulmonary disease with (acute) exacerbation (principal); J18.9 Pneumonia, unspecified organism; Z99.81 Dependence on supplemental oxygen; I25.10 Atherosclerotic heart disease of native coronary artery without angina pectoris; Z95.5 Presence of coronary angioplasty implant and graft; E11.9 Type 2 diabetes mellitus without complications; I10 Essential (primary) hypertension; R06.02 Shortness of breath; J96.21 Acute and chronic respiratory failure with hypoxia; Z79.4 Long term (current) use of insulin; Z79.899 Other long term (current) drug therapy
CPT/HCPCS: 71046; 80048; 80053; 82803; 83735; 84145; 84484; 85007; 85025; 85027; 86803; 87040; 87070; 87077; 87186; 87205; 87265; 87389; 87486; 87581; 87632; 87635; 93005; 94640; 94761; 99291; G0378; J0131; J0456; J0696; J1100; J1650; J1885; J7050; J7620

== ENCOUNTER 2024-10-31 12:01 | Emergency (ER) | payer MEDICARE, SELFPAY ==
[2024-10-31] VITALS (22 sets, daily range): BP systolic 121–179; BP diastolic 52–80; PULSE 54–70; RESP 13–20; TEMP 36.6; O2SAT 93–97; BMI 27.8
--- NOTE | 2024-10-31 12:10 | XR_ITS ---
FINAL REPORT CLINICAL HISTORY: short of breath COMPARISON: None FINDINGS: A single frontal view of the chest was obtained. Increased markings in the right infrahilar region may be due to pneumonia or less likely atelectasis and scar. The left lung is clear. There is no evidence of effusion or pneumothorax. Mediastinum is unremarkable. Heart size is normal. IMPRESSION: Probable right infrahilar pneumonia. Reviewed, Interpreted and Dictated by Tommy Roe MD Transcribed by Juany Lundberg Authenticated and [facility]
--- OUTSIDE RECORDS SUMMARY | 2024-10-31 12:10 | XMS_ITS | Clinical Summary ---
Author Organization Healthcare Address [address] [place] [address] Care Team Providers Care Acid Extractor Name Role Phone Abelardo Jennings MD Primary Care Provider Amie vailable Allergies No known active allergies Medications albuterol 108 (90 Base) MCG/ACT inhaler INHALE 1-2 PUFFS EVERY 4-6 HOURS NEEDED AND DIRECTED. 12/28/19 19 Active glipiZIDE (Glucotrol) 5 MG tablet Take 1 tablet (5 mg) by mouth 1 (one) time each day. 11/25/19 21 Active sertraline (Zoloft) 50 MG tablet 11/18/19 20 Active nitroglycerin (Nitrostat) 0.[address] 1 tablet (0.4 mg total) under the tongue every 5 (five) minutes if needed for chest pain. 90 tablet 1 11/27/19 22 Active furosemide (Lasix) 40 MG tablet Take 1 tablet (40 mg total) by mouth 1 (one) time each day. 90 tablet 3 11/27/19 22 Active Additional Information Patient taking differently:40 mg OralOnce as needed, Reported on 06/14/2024 metFORMIN XR (Glucophage-XR) 500 MG 24 hr tablet Take 2 tablets (1,000 mg) by mouth 2 (two) times a day. 06/04/19 23 Active predniSONE (Deltasone) 20 MG tablet TAKE 1 TABLET BY MOUTH TWICE DAILY FOR 5 DAYS, THEN 1 TABLET ONCE DAILY FOR 5 DAYS 03/05/19 23 Active hydrOXYzine HCl (Atarax) 10 MG tablet Take 1 tablet (10 mg) by mouth every 8 (eight) hours if needed for itching. Active ipratropium-albute rol (Duo-Neb) 0.5-2.5 mg/3 mL nebulizer solution Take 3 mL by nebulization every 6 (six) hours if needed for wheezing. Active cyclopentolate (Cyclogyl) 1 % ophthalmic solution INSTILL 1 DROP INTO THE AFFECTED EYE UPON AWAKENING, 1 DROP WHEN LEAVING HOME, AND 1 DROP UPON ARRIVAL 01/20/20 Active erythromycin (Romycin) 5 MG/GM ophthalmic ointment APPLY A THIN LAYER OF OINTMENT (1/4 INCH STRIP) TWICE DAILY TO AFFECTED EYE 3 DAYS BEFORE BUT NOT THE DAY OF SURGERY 01/20/20 23 Active pioglitazone (Actos) 15 MG tablet Take 1 tablet (15 mg) by mouth 1 (one) time each day. 10/11/19 24 Active Spiriva HandiHaler 18 MCG inhalation capsuleIndications :Chronic obstructive pulmonary disease, unspecified COPD type (CMS/HCC) INHALE THE CONTENTS OF 1 CAPSULE ONE TIME EACH DAY 30 capsule 6 11/13/19 24 Active HumaLOG KWIKPEN 100 UNIT/ML injection pen USE sliding scale BEFORE meals AND AT bedtime DIRECTED. Inject 2 units FOR blood sugar 151-200. 4 units FOR 201-250. 6 units FOR 251-300. 8 units FOR 301-350. 10 units FOR 351-400. 12 units FOR 401-500. >500 call MD 11/15/19 24 Active aspirin 81 MG chewable tablet Chew 1 tablet (81 mg) 1 (one) time each day. aspirin 81 mg tablet 30 tablet 11 12/08/19 24 025 Active atorvastatin (Lipitor) 40 MG tablet Take 2 tablets (80 mg) by mouth 1 (one) time each day. 56 tablet 12/08/19 24 Active Additional Information Patient not taking.Reported on 06/14/2024 atorvastatin (Lipitor) 80 MG tablet Take 1 tablet (80 mg) by mouth 1 (one) time each day. 90 tablet 3 01/03/20 24 Active lisinopril 20 MG tablet Take 1 tablet (20 mg) by mouth 1 (one) time each day. 56 tablet 01/15/20 24 Active carvedilol (Coreg) 12.5 MG tablet Take 0.5 tablets by mouth in the morning and 0.5 tablets in the evening. Take with meals. 90 tablet 3 05/11/19 25 Active empagliflozin (Jardiance) 10 MGIndications:ASCV D (arteriosclerotic cardiovascular disease),Ischemic cardiomyopathy,Lesli betes mellitus type II, non insulin dependent (CMS/HCC) Take 1 tablet by mouth daily. 60 tablet 2 10/18/19 25 Active fluticasone (Flonase) 50 MCG/ACT nasal sprayIndications:C hronic obstructive pulmonary disease, unspecified COPD type (CMS/HCC) Use 2 sprays in each nostril once a day. Shake gently. Before first use, prime pump. After use, clean tip and replace cap. 16 g 3 10/19/19 25 Active fluticasone (Flonase) 50 MCG/ACT nasal sprayIndications:C hronic obstructive pulmonary disease, unspecified COPD type (CMS/HCC) Use 2 sprays in each nostril once a day. Shake gently. Before first use, prime pump. After use, clean tip and replace cap. 16 g 1 04/26/19 23 025 Discontin ued(Reord er) fluticasone-salmet ernestine (Advair Diskus) 250-50 MCG/ACT diskus inhalerIndications :Chronic obstructive pulmonary disease, unspecified COPD type (CMS/HCC),Bronchie ctasis without complication (CMS/HCC) Inhale 1 puff 2 (two) times a day. RINSE MOUTH WITH WATER AFTER USE TO REDUCE AFTERTASTE AND INCIDENCE OF CANDIDIASIS DO NOT SWALLOW 60 each 11/13/19 24 025 Discontin ued(Reord er) empagliflozin (Jardiance) 10 MGIndications:ASCV D (arteriosclerotic cardiovascular disease),Ischemic cardiomyopathy,Lesli betes mellitus type II, non insulin dependent (CMS/HCC) TAKE 1 TABLET BY MOUTH EVERY DAY 60 tablet 2 05/24/19 25 025 Discontin ued(Reord er) fluticasone-salmet ernestine (Advair Diskus) 250-50 MCG/ACT diskus inhalerIndications :Chronic obstructive pulmonary disease, unspecified COPD type (CMS/HCC),Bronchie ctasis without complication (CMS/HCC) Inhale 1 puff 2 times a day. RINSE MOUTH WITH WATER AFTER USE TO REDUCE AFTERTASTE AND INCIDENCE OF CANDIDIASIS DO NOT SWALLOW 60 each 10/18/19 25 025 Discontin ued(Thera py completed ) Active Problems Problem Noted Date Diagnosed Date Acute exacerbation of chronic obstructive airway s disease 11/30/2023 Acquired equinus deformity of both feet 11/30/19 24 Acquired hammertoes of both feet 11/30/2023 Bronchiectasis with (acute) exacerbation 024 Bronchitis 11/30/2023 Congenital cystic bronchiectasis 11/30/2023 Diabetic foot 11/30/2023 Onychodystrophy 11/30/2023 Overweight (BMI 25.0-29.9) 11/30/2023 Pain due to onychomycosis of toenails of both fe et 11/30/2023 Pneumonia 11/30/2023 Type 2 diabetes mellitus wit h hyperglycemia, without long-term current use of insulin 11/30/2023 Atherosclerotic heart disease 11/30/2023 Anginal equivalent 12/04/2020 Pulmonary Mycobacterium avium-intracellulare inf ection 01/28/2019 Pseudomonas respiratory infection 01/25/2019 Acute and chronic respiratory failure with hypox ia 12/27/2018 COPD with emphysema 12/29/2016 Bronchiectasis 12/10/2015 Left ventricular systolic dysfunction 11/21/2015 ST elevation myocardial infa rction (STEMI), subsequent episode of care 11/19/2015 CAD (coronary artery disease) 10/22/2015 HTN (hypertension) 10/22/2015 Ischemic cardiomyopathy 10/22/2015 COPD (chronic obstructive pulmonary disease) 09/2015 Diabetes mellitus 10/22/2015 Encounters Date Type Department Care Team Description 10/29/2024 Orders Only [facility] [address] [place] [phone] Miguel A Torre MD Chronic obstructive pulmonary disease, unspecified COPD type (CMS/HCC) (Primary Dx); Bronchiectasis without complication (CMS/HCC) 10/18/2024 Refill [facility] [address] [place] [phone] Moisés Alvarenga MD Chronic obstructive pulmonary disease, unspecified COPD type (CMS/HCC) 10/18/2024 Telephone [facility] [address] [place] [phone] Miguel A Torre MD 10/17/2024 Refill [facility] [place] [address], [address] [place] [address] See Zafar MD ASCVD (arteriosclerotic cardiovascular disease); Ischemic cardiomyopathy; Diabetes mellitus type II, non insulin dependent ([facility]) 10/17/2024 Refill [facility] [address] [place] [address] Miguel A Torre MD Chronic obstructive pulmonary disease, unspecified COPD type ([facility]); Bronchiectasis without complication ([facility]) 08/30/2024 Telephone [facility] [address] [place] [address] Brittney Trevino from Last 3 Months Immunizations Immunization Administration Dates Next Due Hep A, Adult 01/27/2004,07/17/2003 Hep B, adult 02/03/2004,08/26/2003,07/17/2003 Influenza, High-dose, Split Virus, Trivalent, Injectable, preservative free 11/18/2019 Influenza, high-dose, quadrivalent 01/10,12/14/2021,12/24/2020,2019,11/18/2019 Influenza, injectable, quadr ivalent, preservative free 12/29/2015 adicate timeads COVID-19 Vac cine (Purple Cap) 12+ 11/19/2020,04/17/2020,03/27/2020 Pneumococcal 20-lorelei Conj Vaccine 07/08/2021 Rsvpref, Recombinant, Protei n Subunit, Adjuvent 04/21/2023 TD (adult), 2 Lf tetanus tox oid, preservative free, adsorbed 07/17/2003 Family History Medical History Relation Name Comments Emphysema Father Diabetes Mother Heart Problem Other Diabetes Sister Pulmonary fibrosis Sister Relation Name Status Comments Father Mother Other Sister Social History Tobacco Use Types Packs/Day Years Used Date Smoking Tobacco: Former Cigarettes 1 31.4 0 09/28/1962 - 1994 Passive Smoke Exposure: Past Smokeless Tobacco: Never Tobacco Cessation:Counseling Given: Not Answered Alcohol Use Standard Drinks/Week Comments Not Currently 0 (1 standard drink = 0.6 oz pure alcohol) Alcoholic Drinks/day: Social alcohol use PHQ-2 Answer Date Recorded Patient Health Questionnaire-2 Score 0 06/14/2024 PHQ-9 Answer Date Recorded Patient Health Questionnaire-9 Score 0 04/22/2024 PHQ-2A Answer Date Recorded Depression Risk 0 04/22/2024 PHQ-9A Answer Date Recorded Depression Risk Score 0 04/22/2024 Sex and Gender Information Value Date Recorded Sex Assigned at Not on file Legal Sex Male 8:32 PM EDT Gender Identity Not on file Sexual Orientation Not on file Last Filed Vital Signs Vital Sign Reading Time Taken Comments Blood Pressure 119/74 06/14/2024 10:20 AM EDT Pulse 66 06/14/2024 10:20 AM EDT Temperature 36.5 C (97.7 F) 04/22/2024 9:48 AM EDT Respiratory Rate 18 06/14/2024 10:20 AM EDT Oxygen Saturation 95% 06/14/2024 10:20 AM EDT RA Inhaled Oxygen Concentration - - Weight 94.6 kg (208 lb 8.9 oz) 06/14/2024 10:20 AM EDT Height 182.9 cm (6') 06/14/2024 10:20 AM EDT Body Mass Index 28.29 06/14/2024 10:20 AM EDT Plan of Treatment Upcoming Encounters Date Type Department Care Team (Late st Contact Info) Description 11/25/2024 3:00 PM EDT [facility] [address], [address] [place] [address] Miguel A Torre MD [address] [place] [address] [address] [place] [address] 12/20/2024 10:40 AM EST Office Visit [facility] [place] [address], [address] [place] [address] See Zafar MD [address] [place] [phone] Health Maintenance Due Date Last Done Comments [facility]-Hepatitis C Screening 1955 [facility]-Medicare Annual Wellness (AWV) 1955 [facility]-Infant/Child/Adol SDOH Screenings 1955 Diabetes: Dental Exam 1963 [facility]- SDOH Screenings 1971 [facility]-Adult SDOH Screenings 1971 [facility]-Zoster Vaccines (1 of 2) 01/23/1972 CT Colonography 1998 Colonoscopy 1998 FIT-DNA 1998 FIT 1998 FOBT 1998 Sigmoidoscopy 1998 [facility]-Colorectal Cancer Screening 1998 [facility]-DTaP,Tdap,and Td Vaccines (1 - Tdap) 07/18/2003 07/17/2003 [facility]-Abdominal Aortic Aneurysm (AAA) Screening 2018 [facility]-Diabetes: Hemoglobin A1C 07/04/2021 01/04/2021, 09/30/2015 QNE-ADAVI-35 Vaccine ( season) 2024 12/14/2021, 07/24/2021, 11/19/2020, Additional history exists [facility]-Influenza Vaccine (#1) 10/14/202401/10, 12/14/2021, 12/24/2020, Additional history exists [facility]-Depression Screening 06/14/2025 025, 04/22/2024, 04/22/2024, Additional history exists [facility]-Hepatitis A Vaccines Aged Out 01/27/2004, 04/2003 No longer eligible based on patient's age to complete this topic [facility]-Pneumococcal Vaccine: 50+ Years Completed 07/08/2021 [facility]-RSV Vaccine: 60+ Years or Completed 04/21/2023 [facility]-Obesity Intervention Completed 025, 04/22/2024, 12/08/2023, Additional history exists HPV Vaccines Aged Out No longer eligi ble based on patient's age to complete this topic [facility]-HIB Vaccines Aged Out No longer e ligible based on patient's age to complete this topic [facility]-IPV Vaccines Aged Out No longer e ligible based on patient's age to complete this topic [facility]-Rotavirus Vaccines Aged Out No lo nger eligible based on patient's age to complete this topic Procedures Procedure Name Priority Date/Time Associated Diagnosis Comments HEMOGLOBIN A1C Routine 09/30/2015 4:27 PM EDT from Last 3 Months or Most Recently Relevant to Health Maintenance Results * (ABNORMAL) Hemoglobin A1c (09/30/2015 4:27 PM EDT) Hemoglobin A1c 7.3(H) 4.7 - 6.0 % [facility] Comment: (NOTE) Glycohemoglobin Reference Range, 0 years and up: 4.7 - 6.0% . Hemoglobin A1c values of 5.7 - 6.4% indicate an increased risk for developing diabetes mellitus (prediabetes). Hemoglobin A1c values greater than or equal to 6.5% are diagnostic of diabetes mellitus. . HbA1c assay performed by an ion-exchange chromatography method that is certified traceable to the DCCT. 09/30/2015 4:27 PM EDT 09/30/2015 4:45 PM EDT us Historical Provider LAB BLOOD ORDERABLES Final R esult [facility] from Last 3 Months or Most Recently Relevant to Health Maintenance Additional Health Concerns Infection Onset Date Last Indicated Tuberculosis Rule-Out 04/08/2024 04/08/2024 Insurance ON LICENSE OF [facility] MEDICARE Care Teams Acid Extractor Relationship Specialty Start Date End Date Abelardo Jennings MD PCP - General Family Medicine 11/26/21
--- OUTSIDE RECORDS SUMMARY | 2024-10-31 12:10 | XMS_ITS | Encounter Summary ---
Author Organization Healthcare Address [address] [place] [address] Care Team Providers Care Plastics Process Hand Name Role Phone Abelardo Jennings MD Primary Care Provider Amie vailable Reason for Visit * Reason Onset Date Comments Med Refill 10/17/2024 Encounter Details Date Type Department Care Team ([facility] Contact Info) Description 10/17/2024 Refill [facility] [place] [address], [address] [place] [address] See Zafar MD [address] [place] [phone] ASCVD (arteriosclerotic cardiovascular disease); Ischemic cardiomyopathy; Diabetes mellitus type II, non insulin dependent (CMS/HCC) Social History Tobacco Use Types Packs/Day Years Used Date Smoking Tobacco: Former Cigarettes 1 31.4 0 09/28/1962 - 1994 Passive Smoke Exposure: Past Smokeless Tobacco: Never Alcohol Use Standard Drinks/Week Comments Not Currently [...] on file Sexual Orientation Not on file documented as of this encounter Plan of Treatment Upcoming Encounters Date Type Department Care Team ([facility] Contact Info) Description 11/25/2024 3:00 PM EDT Office Visit [facility] [address], [address] [place] [address] Miguel A Torre MD [address] [place] [address] 12/20/2024 10:40 AM EST Office Visit [facility] [place] [address] [facility] [address] [facility] [address], [address] [place] [address] See Zafar MD [address] [place] [address] documented as of this encounter Visit Diagnoses Diagnosis ASCVD (arteriosclerotic cardiovascular disease) Unspecified cardiovascular disease Ischemic cardiomyopathy Other specified forms of chronic ischemic heart disease Diabetes mellitus type II, non insulin dependent (CMS/HCC) Type II or unspecified type diabetes mellitus without mention of complication, not stated as uncontrolled documented in this encounter Additional Health Concerns Infection Onset Date Last Indicated Resolved Time Tuberculosis Rule-Out 04/08/2024 04/08/2024 Assessment Noted Time PHQ-9 Depression Total Score: 0 04/23/19 25 9:49 AM EDT A fall risk assessment has been complete d for the patient 06/14/2024 10:27 AM EDT A Body Mass Index follow-up plan has been documented for the patient 06/14/2024 10:56 AM EDT documented as of this encounter Care Teams Plastics Process Hand Relationship Specialty Start Date End Date Abelardo Jennings MD PCP - General Family Medicine 11/26/21 documented as of this encounter
--- OUTSIDE RECORDS SUMMARY | 2024-10-31 12:10 | XMS_ITS | Encounter Summary ---
Author Organization Healthcare Address [address] [place] [address] Care Team Providers Care District Superintendent Name Role Phone Abelardo Jennings MD Primary Care Provider Amie vailable Encounter Details Date Type Department Care Team (Late Contact Info) Description 10/18/2024 Telephone [facility] [address] [place] [address] Miguel A Torre MD [address] [place] [address] Social History Tobacco Use Types Packs/Day Years [...] Encounters Date Type Department Care Team (Late Contact Info) Description 11/25/2024 3:00 PM EDT Office Visit [facility] [address], [address] [place] [address] Miguel A Torre MD [address] [place] [address] 12/20/2024 10:40 AM EST Office Visit [facility] [place] [address], [address] [place] [address] See Zafar MD [address] [place] [address] documented as of this encounter Visit Diagnoses Not on filedocumented in this encounter Additional Health Concerns Infection [...] documented as of this encounter Care Teams District Superintendent Relationship Specialty Start Date End Date Abelardo Jennings MD PCP - General Family Medicine 11/26/21 documented as of this encounter
--- OUTSIDE RECORDS SUMMARY | 2024-10-31 12:10 | XMS_ITS | Encounter Summary ---
Author Organization Healthcare Address [address] [place] [address] Care Team Providers Care Food Preservation Scientist Name Role Phone Abelardo Jennings MD Primary Care Provider Amie vailable Reason for Visit * Reason Comments Med Refill Encounter Details Date Type Department Care Team (Late Contact Info) Description 01/24/2024 Refill [facility] [place] [address], [address] [place] [address] See Zafar MD [address] [place] [address] Coronary artery disease involving umkumiut coronary artery of umkumiut heart without angina pectoris Social History Tobacco Use Types Packs/Day Years Used Date Smoking Tobacco: Former Cigarettes 1 31.4 0 09/28/1962 - 1994 Passive Smoke Exposure: Never Smokeless Tobacco: Never Alcohol Use Standard Drinks/Week Comments Not Currently 0 (1 standard drink = 0.6 oz pure alcohol) Alcoholic Drinks/day: Social alcohol use PHQ-2 Answer Date Recorded Patient Health Questionnaire-2 Score 0 10/23/2023 PHQ-2A Answer Date Recorded Depression Risk 0 07/27/2023 Sex and Gender Information Value Date Recorded Sex Assigned at Not on file Legal Sex Male 8:32 PM EDT Gender Identity Not on file Sexual Orientation Not on file documented as of this encounter Plan of Treatment Upcoming Encounters Date Type Department Care Team (Late Contact Info) Description 11/25/2024 3:00 PM EDT [facility] [address], [address] [place] [address] Miguel A Torre MD [address] [place] [address] 12/20/2024 10:40 AM EST Office Visit [facility] [place] [address], [address] [place] [address] See Zafar MD [address] [place] [address] documented as of this encounter Visit Diagnoses Diagnosis Coronary artery disease involving umkumiut coronary artery of umkumiut heart without angina pectoris documented in this encounter Additional Health Concerns Infection Onset Date Last Indicated Resolved Time Tuberculosis Rule-Out 04/08/2024 04/08/2024 Assessment Noted Time A fall risk assessment has been complete d for the patient 12/08/2023 10:20 AM EDT A Body Mass Index follow-up plan has been documented for the patient 12/08/2023 11:09 AM EDT documented as of this encounter Care Teams Food Preservation Scientist Relationship Specialty Start Date End Date Abelardo Jennings MD PCP - General Family Medicine 11/26/21 documented as of this encounter
--- OUTSIDE RECORDS SUMMARY | 2024-10-31 12:10 | XMS_ITS | Encounter Summary ---
Author Organization Healthcare Address [address] [place] [address] Care Team Providers Care Design Engineer Products Name Role Phone Abelardo Jennings MD Primary Care Provider Amie vailable Reason for Visit * Reason Onset Date Comments Med Refill 10/17/2024 Encounter Details Date Type Department Care Team (Late st Contact Info) Description 10/17/2024 [facility]ill [facility] [address] [place] [address] Miguel A Torre MD [address] [place] [address] Chronic obstructive pulmonary disease, unspecified COPD type (CMS/HCC); Bronchiectasis without complication (CMS/HCC) Social History Tobacco Use Types Packs/Day [...] 11/25/2024 3:00 PM EDT Office Visit [facility] [address] [place] [address] Miguel A Torre MD [address] [place] [address] 12/20/2024 10:40 AM EST Office Visit [facility] [place] [address] [facility], [address] [place] [address] See Zafar MD [address] [place] [address] documented as of this encounter Visit Diagnoses Diagnosis Chronic obstructive pulmonary disease, unspecified COPD type (CMS/HCC) Bronchiectasis without complication (CMS/HCC) documented in this encounter Additional Health Concerns [...] documented as of this encounter Care Teams Design Engineer Products Relationship Specialty Start Date End Date Abelardo Jennings MD PCP - General Family Medicine 11/26/21 documented as of this encounter
--- OUTSIDE RECORDS SUMMARY | 2024-10-31 12:10 | XMS_ITS | Encounter Summary ---
Author Organization Healthcare Address [address] [place] [address] Care Team Providers Care Ux Visual Designer Name Role Phone Abelardo Jennings MD Primary Care Provider Amie vailable Encounter Details Date Type Department Care Team (Late Contact Info) Description 07/17/2023 Orders Only External Location [address] [place] [address] Nayan Guerra MD [address] [address] Social History Tobacco Use Types Packs/Day Years Used Date Smoking Tobacco: Former Cigarettes 1 31.4 0 09/28/1962 - 1994 Passive Smoke Exposure: Never Smokeless Tobacco: Never Alcohol Use Standard Drinks/Week Comments Not Currently 0 (1 standard drink = 0.6 oz pure alcohol) Alcoholic Drinks/day: Social alcohol use PHQ-2 Answer Date Recorded Patient Health Questionnaire-2 Score 0 04/13/2023 PHQ-2A Answer Date Recorded Patient Health Questionnaire-2 Score 0 12/02/2022 Sex and Gender Information Value Date Recorded Sex Assigned at Not on file Legal Sex Male 8:32 PM EDT Gender Identity Not on file Sexual Orientation Not on file documented as of this encounter Plan of Treatment Upcoming Encounters Date Type Department Care Team (Late Contact Info) Description 11/25/2024 3:00 PM EDT Office Visit [facility] [address], [address] [place] [address] Miguel A Torre MD [address] [place] [address] 12/20/2024 10:40 AM EST Office Visit [facility] [place] [address], [address] [place] [address] See Zafar MD [address] [place] [address] documented as of this encounter Procedures Procedure Name Priority Date/Time Associated Diagnosis Comments CT CHEST WO IV CONTRAST 07/17/2023 1:20 PM EDT documented in this encounter Results * CT Chest wo IV Contrast (07/17/2023 1:20 PM EDT) Anatomical Region Laterality Modality Chest Computed Tomogra phy 07/17/2023 1:20 PM EDT Nayan Guerra MD IMG CT PROCEDURES Final Result documented in this encounter Visit Diagnoses Not on filedocumented in this encounter Additional Health Concerns Infection Onset Date Last Indicated Resolved Time Tuberculosis Rule-Out 04/08/2024 04/08/2024 Assessment Noted Time A fall risk assessment has been complete d for the patient 04/13/2023 3:05 PM EST A Body Mass Index follow-up plan has been documented for the patient 04/13/2023 4:00 PM EST documented as of this encounter Care Teams Ux Visual Designer Relationship Specialty Start Date End Date Abelardo Jennings MD PCP - General Family Medicine 11/26/21 documented as of this encounter
--- OUTSIDE RECORDS SUMMARY | 2024-10-31 12:10 | XMS_ITS | Encounter Summary ---
Author Organization Healthcare Address [address] [place] [address] Care Team Providers Care Comic Book Writer Name Role Phone Abelardo Jennings MD Primary Care Provider Amie vailable Encounter Details Date Type Department Care Team (Late st Contact Info) Description 10/29/2024 Orders Only [facility] [address], [address] [place] [address] Miguel A Torre MD [address] [place] [address] Chronic obstructive pulmonary disease, unspecified COPD type (CMS/HCC) (Primary Dx); Bronchiectasis without complication (CMS/HCC) Social History Tobacco [...] Description 11/25/2024 3:00 PM EDT Office Visit [facility] [address], [address] [place] [address] Miguel A Torre MD [address] [place] [address] 12/20/2024 10:40 AM EST Office Visit [facility] [place] [address], [address] [place] [address] See Zafar MD [address] [place] [address] Scheduled Orders Name Type Priority Associated Diagnoses Orde r Schedule Multiple Determination Oximetry PFT Routine Chronic obstructive pulmonary disease, unspecified COPD type (CMS/HCC) Bronchiectasis without complication (CMS/HCC) Expected: 11/25/2024, Expires: 05/02/2026 documented as of this encounter Visit Diagnoses Diagnosis Chronic obstructive pulmonary disease, unspecified COPD type (CMS/HCC)- Primary Bronchiectasis without complication (CMS/HCC) documented in this [...] documented as of this encounter Care Teams Comic Book Writer Relationship Specialty Start Date End Date Abelardo Jennings MD PCP - General Family Medicine 11/26/21 documented as of this encounter
--- OUTSIDE RECORDS SUMMARY | 2024-10-31 12:10 | XMS_ITS | Clinical Summary ---
Author Organization [facility] Address [address] [place] [address] Care Team Providers Care School Curriculum Developer Name Role Phone Gogo Starks APRN Primary Care Provider Allergies No known active allergies Medications carvedilol (COREG) 12.5 MG tablet Take 12.5 mg by mouth 2 (Two) Times a Day With Meals. Active clopidogrel (PLAVIX) 75 MG tablet Take 75 mg by mouth Daily. Active lisinopril (PRINIVIL,ZESTRI L) 20 MG tablet Take 20 mg by mouth Daily. Active furosemide (LASIX) 40 MG tablet Take 40 mg by mouth 2 (Two) Times a Day As Needed (EDEMA). Active atorvastatin (LIPITOR) 80 MG tablet Take 80 mg by mouth Daily. Active metFORMIN (GLUCOPHAGE) 500 MG tablet Take 1,000 mg by mouth 2 (Two) Times a Day With Meals. Active fluticasone-salm eterol (ADVAIR DISKUS) 250-50 MCG/DOSE DISKUS Inhale 1 puff 2 (Two) Times a Day. Active Tiotropium Hulett Monohydrate (SPIRIVA RESPIMAT) 2.5 MCG/ACT aerosol solution Inhale 2 puffs Daily. Active aspirin 81 MG EC tablet Take 81 mg by mouth Daily. Active glipizide (GLUCOTROL) 5 MG tablet Take 5 mg by mouth Daily. Active nitroglycerin (NITROSTAT) 0.[address] 0.4 mg under the tongue Every 5 (Five) Minutes As Needed for Chest Pain. Take no more than 3 doses in 15 minutes. PT STATES HE HAS NEVER TAKEN Active albuterol sulfate HFA 108 (90 Base) MCG/ACT inhaler Inhale 2 puffs Every 4 (Four) Hours As Needed for Wheezing. Active ondansetron (ZOFRAN) 4 MG tablet Take 1 tablet by mouth Every 8 (Eight) Hours As Needed for post-op nausea. 30 tablet 01/23/2021 3:24 PM EST Active oxyCODONE (ROXICODONE) 5 MG immediate release tablet Take 1-2 tablets by mouth Every 4 (Four) Hours As Needed for Moderate Pain . 50 tablet 01/23/2021 3:24 PM EST Active Active Problems No known active problems Social History Tobacco Use Types Packs/Day Years Used Date Smoking Tobacco: Former Cigarettes Q uit: 1994 Smokeless Tobacco: Never Alcohol Use Standard Drinks/Week Comments Never 0 (1 standard drink = 0.6 oz pur e alcohol) Abuse Screen Answer Date Recorded Unsafe at Home or Work/School Not on file Feels Threatened by Someone? Not on file 01/2023 Does Anyone Keep You from Co ntacting Others or Doint Things Outside the Home? Not on file 11/24/2022 Physical Sign of Abuse Present Not on file 1 Housing Stability Answer Date Recorded Current Living Arrangements Not on file 11/13 Potentially Unsafe Housing Conditions Not on mary e 11/24/2022 Family and Community Support Answer Geovany e Recorded Help with Day-to-Day Activities Not on file 11/24/2022 Lonely or Isolated Not on file 11/24/2022 Employment Answer Date Recorded Do you want help finding or keeping work or a bernard b? Not on file 11/24/2022 Disabilities Answer Date Recorded Concentrating, Remembering, or Making Decisions Difficulty Not on file 11/24/2022 Doing Errands Independently Difficulty Not on fi le 11/24/2022 Education Answer Date Recorded Help with school or training? Not on file Preferred Language Not on file 11/24/2022 Sex and Gender Information Value Date Recorded Sex Assigned at Not on file Legal Sex Male 6:09 PM EST Gender Identity Not on file Sexual Orientation Not on file Last Filed Vital Signs Vital Sign Reading Time Taken Comments Blood Pressure 148/77 01/23/2021 4:15 PM EST Pulse 66 01/23/2021 4:15 PM EST Temperature 36.1 C (97 F) 01/23/2021 4:15 PM EST Respiratory Rate 16 01/23/2021 4:15 PM EST Oxygen Saturation 95% 01/23/2021 4:15 PM EST Inhaled Oxygen Concentration - - Weight 93 kg (205 lb) 01/23/2021 10:32 AM EST Height 182.9 cm (6') 01/23/2021 10:32 AM EST Body Mass Index 27.8 01/23/2021 10:32 AM EST Plan of Treatment Health Maintenance Due Date Last Done Comments TDAP/TD VACCINES (1 - Tdap) 01/23/1972 COLOGUARD 1998 COLON CANCER SCREENING 5 YEA R SIGMOIDOSCOPY 1998 COLONOSCOPY 1998 COLOR[address]AL CANCER SCREENING 1998 CT COLONOGRAPHY 1998 FECAL OCCULT BLOOD TEST 1998 FIT Testing (1 year) 1998 Pneumococcal Vaccine 50+ (1 of 1 - PCV) 2003 ZOSTER VACCINE (1 of 2) 2003 ANNUAL PHYSICAL 04/20/2017 HEPATITIS C SCREENING 04/20/2017 AAA SCREEN ONCE 2018 COVID-19 Vaccine ( season) 10/14/202406/2020, 03/27/2020 INFLUENZA VACCINE 11/13/2024 Medical Devices Implanted Type Area Nuclear Logging Engineer Device Identifier Shelf Expiration Date Model / Serial / Lot Sut/Anch Biocomp Cscrw Ful/Thrd W/2suturetape [id number] - [id number] Implanted:Qty: 2 on 01/23/2021 by Evan Guthrie MD at [facility] Implant Right: Shoulder [employer] 06/12/2024 [id number] 75 / / [id number] Sut/Anch Tndn Loopntack Knotlss Fiberlink Biocomp 4.75mm - [id number] Implanted:Qty: 2 on 01/23/2021 by Evan Guthrie MD at [facility] Implant Right: Shoulder [employer] 12/13/2024 [id number] L / / [id number] Insurance [employer] Member Subscriber Plan / Payer (Ef fective 2017-Present) Name:Blake Esparza Relation to Subscriber:Self Name:Blake Esparza Payer ID:[id number] (NAIC) Group ID:[id number] Type:Medicare Replacement Address: [place] [phone] Care Teams School Curriculum Developer Relationship Specialty Start Date End Date Gogo Starks APRN [address] [place] [address] PCP - General Nurse Practitioner 01/04/21
--- OUTSIDE RECORDS SUMMARY | 2024-10-31 12:10 | XMS_ITS | Encounter Summary ---
Author Organization Healthcare Address [address] [place] [address] Care Team Providers Care Production Leader Name Role Phone Abelardo Jennings MD Primary Care Provider Amie vailable Encounter Details Date Type Department Care Team (Late st Contact Info) Description 10/18/2024 Refill [facility] [address] [place] [id number] Moisés Alvarenga MD [address] [place] [address] Chronic obstructive pulmonary disease, unspecified COPD type (CMS/HCC) Social History Tobacco Use Types Packs/Day [...] 11/25/2024 3:00 PM EDT Office Visit [facility] [address], [address] [place] [address] Miguel A Torre MD [address] [place] [address] 12/20/2024 10:40 AM EST Office Visit [facility] [place] [address], [address] [place] [address] See Zafar MD [address] [place] [address] documented as of this encounter Visit Diagnoses Diagnosis Chronic obstructive pulmonary disease, unspecified COPD type (CMS/HCC) documented in this encounter Additional Health [...] documented as of this encounter Care Teams Production Leader Relationship Specialty Start Date End Date Abelardo Jeninngs MD PCP - General Family Medicine 11/26/21 documented as of this encounter
--- NOTE | 2024-10-31 12:11 | ECG_ITS ---
APPROVED REPORT Exam: Resting ECG HR:57 bpm ECG Measurements Heart Rate 57 AXES SC 192 P 54 QRSd 95 QRS 83 QT 374 T 90 QTc 369 Conclusion SINUS BRADYCARDIA LOW QRS VOLTAGE IN EXTREMITY LEADS [QRS DEFLECTION < 0.5 mV IN LIMB LEADS] ANTEROSEPTAL MYOCARDIAL INFARCTION , OF INDETERMINATE AGE [40+ ms Q WAVE IN V1-V4] ABNORMAL ECG Electronically signed by : AGNIESZKA RO, 11/03/2024 08:36:29
--- NOTE | 2024-10-31 12:14 | ED_ITS ---
<Statement entered by Kedar Castro MD - 10/31/24 15:55> I was consulted by the ROBERTO, and we discussed the complexity of the problems being addressed. I approved the treatment and management plan for this patient's care in the emergency department, thus performing a substantive portion of the medical decision making. Patient has pneumonia is not septic saturating well on room air no tachypnea is appropriate for outpatient management was given return precautions. Kedar Castro MD Discharge Plan Disposition Chief Complaint: Chest Pain Prescriptions Prescriptions: New amoxicillin-pot clavulanate 875-125 mg tablet 1 tab PO BID 10 Days Qty: 20 0RF doxycycline hyclate 100 mg capsule 100 mg PO BID 7 Days Qty: 14 0RF No Action carvedilol 12.5 mg tablet 6.25 mg PO BID multivitamin Tablet 1 tab PO DAILY cetirizine 10 mg tablet 10 mg PO DAILY vitamin B complex Tablet 1 tab PO DAILY vitamin E (dl, acetate) 180 mg (400 unit) capsule 180 mg PO DAILY ergocalciferol (vitamin D2) 50 mcg (2,000 unit) tablet 50 mcg PO DAILY nitroglycerin 0.4 mg tablet, sublingual 0.4 mg sublingual Q5MINP PRN (Reason: Chest Pain) atorvastatin 80 mg tablet 80 mg PO HS Jardiance 10 mg tablet 10 mg PO DAILY azithromycin 250 mg tablet 250 mg PO DAILY Rx Instructions: start on day 2 of therapy aspirin [Aspirin Childrens] 81 mg tablet,chewable 81 mg PO DAILY Qty: 30 2RF Breztri Aerosphere 160-9-4.8 mcg/actuation HFA aerosol inhaler 2 inh inhalation BID 30 Days Qty: 5.9 2RF hydroxyzine HCl 10 mg tablet 10 mg PO QIDP PRN (Reason: anxiety) Qty: 30 0RF metformin 500 mg tablet extended release 24 hr See Rx Instructions .ROUTE .COMPLEX Qty: 360 0RF Dose Instruction: Take 2 tablets by mouth twice daily Rx Instructions: Take 2 tablets by mouth twice daily glipizide 5 mg tablet See Rx Instructions .ROUTE .COMPLEX Qty: 180 0RF Dose Instruction: Take 2 tablets by mouth once daily Rx Instructions: Take 2 tablets by mouth once daily Referrals Follow up/Referrals: Abelardo Jennings MD [Primary Care Provider, Internal Medicine] - See instructions Activity Restrictions/Add. Instructions Additional Instructions/Restrictions: Increase fluids and rest. Take meds as directed. If you have any problems or concerns please return to the ED or see your PCP in follow-up. Please wear your O2 at home. Clinical Impressions Clinical Impression: Community acquired pneumonia Instructions Patient Instructions: Pneumonia--Adult Print Language Print Language: Portuguese Discharge ED Provider: Kedar Castro HPI <Janey Guillermo (ED), [employer] - Last Filed: 10/31/24 15:53> General Chief Complaint: Chest Pain Stated Complaint: CP Time Seen by Provider: 10/31/24 12:09 Mode of Arrival: Ambulatory Source of Information: Patient and Spouse Description of Symptoms (Recalled from ER Triage Doc. by RN): Patient presents to ED for left anterior chest pain that began at 0500 this morning. Patient reports pain is intermittent and does not radiate. Has hx of IA in 2016 with 3 cardiac stents. History of Present Illness HPI narrative: 69-year-old male presents to the ED for chest pain that started at 5 AM this morning. He has a left-sided chest pain that is intermittent. Patient has no radiation of this pain. He does have history of IA and 3 stents that were placed. He sees [facility] for cardiology. He states that he had an IA in 2016 but did not have chest pain at that time. Patient does state that he has some shortness of breath. He has normal shortness of breath. He has COPD and wears O2 at home. He does have history of gout. He is, COPD, hypertension, pneumonia, and ACS. PCP did talk to patient and he told them that his smart watch has been going off all morning telling him to seek treatment. Related Data Home Medications ?Medication ?Instructions ?Recorded ?Confirmed carvedilol 12.5 mg tablet 6.25 mg PO BID 09/08/2007/14 cetirizine 10 mg tablet 10 mg PO DAILY 11/02/2107/14 ergocalciferol (vitamin D2) 50 mcg 50 mcg PO DAILY 08/01/24 (2,000 unit) tablet multivitamin 1 tab PO DAILY 11/02/2107/14 vitamin B complex 1 tab PO DAILY 11/02/2107/14 vitamin E (dl, acetate) 180 mg 180 mg PO DAILY 2 08/01/24 (400 unit) capsule nitroglycerin 0.4 mg sublingual 0.4 mg sublingual Q5MI CRITICAL CARE TRANSPORT NURSE PRN Chest 01/10/22 08/01/24 tablet Pain azithromycin 250 mg tablet 250 mg PO DAILY 01/18/24 empagliflozin 10 mg tablet 10 mg PO DAILY 01/18/24 (Jardiance) atorvastatin 80 mg tablet 80 mg PO HS 02/21/24 5 Previous Rx's ?Medication ?Instructions ?Recorded aspirin 81 mg chewable tablet 81 mg PO DAILY #30 tabs 12/12/23 (Aspirin Childrens) budesonide 160 mcg-glycopyr 9 2 inh inhalation BID 30 days #5.9 05/16/24 mcg-formot 4.8 mcg/actuation HFA grams inhaler (Breztri Aerosphere) hydroxyzine HCl 10 mg tablet 10 mg PO QIDP PRN anxiety #30 tabs 05/16/24 metformin 500 mg tablet,extended See Rx Instructions . Route 08/05/24 release 24 hr .COMPLEX #360 tabs glipizide 5 mg tablet See Rx Instructions .Route 0 10/22/24 .COMPLEX #180 tabs amoxicillin 875 mg-potassium 1 tab PO BID 10 days #20 tabs 10/31/24 clavulanate 125 mg tablet doxycycline hyclate 100 mg capsule 100 mg PO BID 7 day s #14 caps 10/31/24 Allergies Allergy/AdvReac Type Severity Reaction Status Date / Time No Known Allergies Allergy Verified 08/01/24 08:43 [facility] <Janey Guillermo (ED), C[employer]ER SERVICE [employer]IER - Last Filed: 10/31/24 15:53> [facility] Disclaimer: The information contained in this section may have been updated after the patient was seen, as this information can be updated by other users. Medical History Bronchitis Acute and chronic respiratory failure with hypoxia Bronchiectasis with (acute) exacerbation Congenital cystic bronchiectasis HTN (hypertension), benign COPD (chronic obstructive pulmonary disease) Atherosclerotic heart disease Asthma Anxiety Type 2 diabetes mellitus with hyperglycemia, without long-term current use of insulin Surgical History History of colonoscopy H/O repair of right rotator cuff Hx of cardiac cath Family History Other Cancer Diabetes Hypertension Social History Smoking Status: Never smoker alcohol intake: never substance use type: denies use current occupational status: retired Travel in the last 8 weeks?: None Have you lived/traveled outside [place] in past 30 days?: No Contact w/someone who lives/traveled outside US past 30 days?: No Exposure to someone with infectious disease in past 14 days?: No Do you have a fever (greater than 100.4 F or 38 C)?: No Have you tested positive for COVID-19?: No Exposed to someone with COVID-19 in past 14 days?: No Do you have a sore throat?: No Do you have a cough?: No Do you have any weakness?: No Do you have any diarrhea?: No Are you experiencing any unusual bleeding?: No Do you have any muscle aches/pain?: No Do you have any abdominal pain?: No Are you experiencing loss of taste or smell?: No Other Medical History Have you received the Flu Vaccine for this season: No Have you received the Pneumonia Vaccine: Yes <Janey Guillermo (ED), [employer] - Last Filed: 10/31/24 15:53> ROS Obtained: Yes Systems reviewed as appropriate & no additional complaints except as documented Constitutional Constitutional: Reports as per HPI Physical Exam <Janey Guillermo (ED), C[employer]ER SERVICE C[employer]IER - Last Filed: 10/31/24 15:53> General General appearance: alert and in no apparent distress Head Head exam: normocephalic Eye Eye exam: Present PERRL ENT ENT exam: Present mucous membranes moist Neck Neck exam: Present trachea midline Chest Chest inspection: Present symmetric chest wall rise Respiratory Respiratory exam: Present normal lung sounds bilaterally Cardiovascular Cardiovascular exam: Present regular rate, normal rhythm, normal heart sounds, +S1 and +S2 Abdominal Exam Abdominal exam: Present soft and normal bowel sounds Extremities Exam Extremities exam: Present normal inspection, full ROM and normal capillary refill Back Exam Back exam: Present full ROM Neurological Exam Neurological exam: Present alert, oriented X3 and normal gait Psychiatric Psychiatric exam: Present normal mood Skin Skin exam: Present warm and dry HEART Score <[facility] (ED), C[employer]ER SERVICE C[employer]IER - Last Filed: 10/31/24 15:53> HEART Score HEART Score assessment performed?: Yes History (anamnesis): Moderately suspicious ECG: Normal Age: >65 years Risk factors: 3 or more risk factors Troponin: </= normal limit HEART Score: 5 <Kedar Castro MD - Last Filed: 10/31/24 12:40> HEART Score HEART Score: 5 Critical Care <[facility] (ED), CUST[employer]ER SERVICE C[employer]IER - Last Filed: 10/31/24 15:53> Critical Care Time Critical Care Time: No Medical Decision Making <[facility] (ED), CUSTOMER SERVICE C[employer]IER - Last Filed: 10/31/24 15:53> Bill Inquiry Pt receiving controlled substance: No Bill was queried for this patient: No Vital Signs Vital Signs: 10/31/24 12:07 10/31/24 12:07 10/31/24 12:10 Temperature 97.9 F 97.9 F Temperature Source Oral Pulse Rate 70 61 Pulse Rate [Right] 70 Respiratory Rate 18 18 19 Blood Pressure 178/77 H 179/80 H Blood Pressure [Right Arm] 178/77 H Blood Pressure Mean Blood Pressure Mean [Right Arm] 110 02 Sat by Pulse Oximetry 95 95 97 Oxygen Delivery Method Room Air 10/31/24 12:21 10/31/24 12:30 10/31/24 12:40 Temperature Temperature Source Pulse Rate 58 L 57 L 55 L Pulse Rate [Right] Respiratory Rate 20 16 15 Blood Pressure 139/71 147/68 H 130/60 Blood Pressure [Right Arm] Blood Pressure Mean Blood Pressure Mean [Right Arm] 02 Sat by Pulse Oximetry 95 95 95 Oxygen Delivery Method Room Air Room Air Room Air 10/31/24 12:50 10/31/24 13:00 10/31/24 13:10 Temperature Temperature Source Pulse Rate 55 L 56 L 58 L Pulse Rate [Right] Respiratory Rate 13 17 14 Blood Pressure 121/57 L 127/63 137/61 Blood Pressure [Right Arm] Blood Pressure Mean Blood Pressure Mean [Right Arm] 02 Sat by Pulse Oximetry 95 95 95 Oxygen Delivery Method 10/31/24 13:20 10/31/24 13:30 10/31/24 13:40 Temperature Temperature Source Pulse Rate 56 L 57 L 58 L Pulse Rate [Right] Respiratory Rate 13 15 18 Blood Pressure 126/54 L 122/52 L 131/60 Blood Pressure [Right Arm] Blood Pressure Mean Blood Pressure Mean [Right Arm] 02 Sat by Pulse Oximetry 95 95 95 Oxygen Delivery Method 10/31/24 13:50 10/31/24 14:01 10/31/24 14:10 Temperature Temperature Source Pulse Rate 56 L 60 54 L Pulse Rate [Right] Respiratory Rate 15 19 15 Blood Pressure 126/64 144/65 H 137/67 Blood Pressure [Right Arm] Blood Pressure Mean Blood Pressure Mean [Right Arm] 02 Sat by Pulse Oximetry 93 L 93 L 94 L Oxygen Delivery Method 10/31/24 14:20 10/31/24 14:30 10/31/24 14:40 Temperature Temperature Source Pulse Rate 55 L 59 L 56 L Pulse Rate [Right] Respiratory Rate 13 18 18 Blood Pressure 131/68 148/65 H 143/68 H Blood Pressure [Right Arm] Blood Pressure Mean 92 93 Blood Pressure Mean [Right Arm] 02 Sat by Pulse Oximetry 93 L 95 95 Oxygen Delivery Method Room Air Room Air 10/31/24 14:50 10/31/24 15:00 10/31/24 15:10 Temperature Temperature Source Pulse Rate 56 L 55 L 55 L Pulse Rate [Right] Respiratory Rate 17 13 13 Blood Pressure 148/67 H 144/71 H 134/69 Blood Pressure [Right Arm] Blood Pressure Mean 94 95 101 Blood Pressure Mean [Right Arm] 02 Sat by Pulse Oximetry 95 95 95 Oxygen Delivery Method Room Air Room Air Room Air 10/31/24 15:20 Temperature Temperature Source Pulse Rate 55 L Pulse Rate [Right] Respiratory Rate 13 Blood Pressure 133/74 Blood Pressure [Right Arm] Blood Pressure Mean 103 Blood Pressure Mean [Right Arm] 02 Sat by Pulse Oximetry 95 Oxygen Delivery Method Room Air Lab Data Labs: Lab Results 10/31/24 12:10: WBC 9.0, RBC 4.65, Hgb 14.2, Hct 43.7, MCV 94.0, MCH 30.5, MCHC 32.5, RDW 12.9, Plt Count 199, MPV 10.0, Neut % (Auto) 71.7, Lymph % (Auto) 15.3, Louis[place] % (Auto) 8.5, Eos % (Auto) 2.9, Baso % (Auto) 0.9, Neut # (Auto) 6.4, Lymph # (Auto) 1.4, Louis[place] # (Auto) 0.8, Eos # (Auto) 0.3, Baso # (Auto) 0.1, PT 11.2, INR 1.01, D-Dimer 0.60 H, Sodium 140, Potassium 4.6, Chloride 103, Carbon Dioxide 25, Anion Gap 16.6 H, BUN 25 H, Creatinine 0.90, Estimated Creat Clear 89, Estimated GFR 83, Est GFR ( Amer) 101, Glucose 144 H, Calcium 9.2, Magnesium 1.9, Total Bilirubin 1.3, AST 37, ALT 36, Alkaline Phosphatase 70, Troponin I < 0.01, NT-Pro-B Natriuret Pep 50.7, Total Protein 7.2, Albumin 4.5, Globulin 2.7, Albumin/Globulin Ratio 1.7, Lipase 76 10/31/24 15:04: Troponin I < 0.01 10/31/24 12:10 10/31/24 12:10 Response Orders (Tests/Meds): ED MEDICATIONS Generic Name Dose Route Start Last Admin Trade Name Freq PRN Reason Stop Dose Admin Ceftriaxone Sodium 2 gm/ 100 mls @ 200 mls/hr 10/31/24 14:00 10/31/24 14:52 Sodium Chloride IV 11/10/24 13:59 200 mls/hr Q24H GREG Infusion Discontinued Medications Generic Name Dose Route Start Last Admin Trade Name Freq PRN Reason Stop Dose Admin Morphine Sulfate 4 mg 10/31/24 12:18 10/31/24 12:31 Morphine 4mg/Ml Syringe IV 10/31/24 12:19 Not Given ONCE ONE Ondansetron HCl 4 mg 10/31/24 12:18 10/31/24 12:31 Ondansetron 4mg/2ml Vial IV 10/31/24 12:19 4 mg ONCE ONE Administration ORDERS Category Date Time Status Chest XR -- portable [XR chest portable] Stat Exams 10/31/24 12:10 Completed BNP [NT Pro Brain Natriuretic Pep.] Stat Lab 10/31/24 12:10 Completed CBC [Complete Blood Count Auto Diff] Stat Lab 10/31/24 12:10 Completed Comprehensive Metabolic Panel Stat Lab 10/31/24 12:10 Completed D-Dimer Stat Lab 10/31/24 12:10 Completed Lipase Stat Lab 10/31/24 12:10 Completed Magnesium Stat Lab 10/31/24 12:10 Completed PT INR [Prothrombin Time INR] Stat Lab 10/31/24 12:10 Completed Trop I [Troponin I] Stat Lab 10/31/24 12:10 Completed Troponin I Q3H Lab 10/31/24 15:04 Completed Troponin I Q3H Lab 10/31/24 18:15 Ordered MDM Narrative Medical Decision Narrative: patient is a 69-year-old male presenting to the emergency department for evaluation of chest pain and shortness of breath. Patient is hemodynamically stable and nontoxic-appearing upon arrival, afebrile. Differential diagnosis includes ACS, arrhythmia, GERD, among others. Workup will be conducted with hematologic labs, specific imaging. Initial inventions include crystalloid bolus, analgesics. According to age-adjusted D-dimer calculation the likelihood of PE or DVT has a low likelihood. Patient has a normal troponin initially. Troponins were normal x 2. CT showed pneumonia. Patient will be treated here in the ED with Rocephin. He will go home with doxycycline and Augmentin. Patient is safe for discharge home. He will follow-up with his PCP. <Kedar Castro MD - Last Filed: 10/31/24 12:40> Vital Signs Vital Signs: 10/31/24 12:07 10/31/24 12:07 10/31/24 12:10 Temperature 97.9 F 97.9 F Temperature Source Oral Pulse Rate 70 61 Pulse Rate [Right] 70 Respiratory Rate 18 18 19 Blood Pressure 178/77 H 179/80 H Blood Pressure [Right Arm] 178/77 H Blood Pressure Mean Blood Pressure Mean [Right Arm] 110 02 Sat by Pulse Oximetry 95 95 97 Oxygen Delivery Method Room Air 10/31/24 12:21 10/31/24 12:30 10/31/24 12:40 Temperature Temperature Source Pulse Rate 58 L 57 L 55 L Pulse Rate [Right] Respiratory Rate 20 16 15 Blood Pressure 139/71 147/68 H 130/60 Blood Pressure [Right Arm] Blood Pressure Mean Blood Pressure Mean [Right Arm] 02 Sat by Pulse Oximetry 95 95 95 Oxygen Delivery Method Room Air Room Air Room Air 10/31/24 12:50 10/31/24 13:00 10/31/24 13:10 Temperature Temperature Source Pulse Rate 55 L 56 L 58 L Pulse Rate [Right] Respiratory Rate 13 17 14 Blood Pressure 121/57 L 127/63 137/61 Blood Pressure [Right Arm] Blood Pressure Mean Blood Pressure Mean [Right Arm] 02 Sat by Pulse Oximetry 95 95 95 Oxygen Delivery Method 10/31/24 13:20 10/31/24 13:30 10/31/24 13:40 Temperature Temperature Source Pulse Rate 56 L 57 L 58 L Pulse Rate [Right] Respiratory Rate 13 15 18 Blood Pressure 126/54 L 122/52 L 131/60 Blood Pressure [Right Arm] Blood Pressure Mean Blood Pressure Mean [Right Arm] 02 Sat by Pulse Oximetry 95 95 95 Oxygen Delivery Method 10/31/24 13:50 10/31/24 14:01 10/31/24 14:10 Temperature Temperature Source Pulse Rate 56 L 60 54 L Pulse Rate [Right] Respiratory Rate 15 19 15 Blood Pressure 126/64 144/65 H 137/67 Blood Pressure [Right Arm] Blood Pressure Mean Blood Pressure Mean [Right Arm] 02 Sat by Pulse Oximetry 93 L 93 L 94 L Oxygen Delivery Method 10/31/24 14:20 10/31/24 14:30 10/31/24 14:40 Temperature Temperature Source Pulse Rate 55 L 59 L 56 L Pulse Rate [Right] Respiratory Rate 13 18 18 Blood Pressure 131/68 148/65 H 143/68 H Blood Pressure [Right Arm] Blood Pressure Mean 92 93 Blood Pressure Mean [Right Arm] 02 Sat by Pulse Oximetry 93 L 95 95 Oxygen Delivery Method Room Air Room Air 10/31/24 14:50 10/31/24 15:00 10/31/24 15:10 Temperature Temperature Source Pulse Rate 56 L 55 L 55 L Pulse Rate [Right] Respiratory Rate 17 13 13 Blood Pressure 148/67 H 144/71 H 134/69 Blood Pressure [Right Arm] Blood Pressure Mean 94 95 101 Blood Pressure Mean [Right Arm] 02 Sat by Pulse Oximetry 95 95 95 Oxygen Delivery Method Room Air Room Air Room Air 10/31/24 15:20 Temperature Temperature Source Pulse Rate 55 L Pulse Rate [Right] Respiratory Rate 13 Blood Pressure 133/74 Blood Pressure [Right Arm] Blood Pressure Mean 103 Blood Pressure Mean [Right Arm] 02 Sat by Pulse Oximetry 95 Oxygen Delivery Method Room Air Lab Data Labs: Lab Results 10/31/24 12:10: WBC 9.0, RBC 4.65, Hgb 14.2, Hct 43.7, MCV 94.0, MCH 30.5, MCHC 32.5, RDW 12.9, Plt Count 199, MPV 10.0, Neut % (Auto) 71.7, Lymph % (Auto) 15.3, Louisa % (Auto) 8.5, Eos % (Auto) 2.9, Baso % (Auto) 0.9, Neut # (Auto) 6.4, Lymph # (Auto) 1.4, [place] # (Auto) 0.8, Eos # (Auto) 0.3, Baso # (Auto) 0.1, PT 11.2, INR 1.01, D-Dimer 0.60 H, Sodium 140, Potassium 4.6, Chloride 103, Carbon Dioxide 25, Anion Gap 16.6 H, BUN 25 H, Creatinine 0.90, Estimated Creat Clear 89, Estimated GFR 83, Est GFR ( Amer) 101, Glucose 144 H, Calcium 9.2, Magnesium 1.9, Total Bilirubin 1.3, AST 37, ALT 36, Alkaline Phosphatase 70, Troponin I < 0.01, NT-Pro-B Natriuret Pep 50.7, Total Protein 7.2, Albumin 4.5, Globulin 2.7, Albumin/Globulin Ratio 1.7, Lipase 76 10/31/24 15:04: Troponin I < 0.01 Response Orders (Tests/Meds): ED MEDICATIONS Generic Name Dose Route Start Last Admin Trade Name Freq PRN Reason Stop Dose Admin Ceftriaxone Sodium 2 gm/ 100 mls @ 200 mls/hr 10/31/24 14:00 10/31/24 14:52 Sodium Chloride IV 11/10/24 13:59 200 mls/hr Q24H GREG Infusion Discontinued Medications Generic Name Dose Route Start Last Admin Trade Name Freq PRN Reason Stop Dose Admin Morphine Sulfate 4 mg 10/31/24 12:18 10/31/24 12:31 Morphine 4mg/Ml Syringe IV 10/31/24 12:19 Not Given ONCE ONE Ondansetron HCl 4 mg 10/31/24 12:18 10/31/24 12:31 Ondansetron 4mg/2ml Vial IV 10/31/24 12:19 4 mg ONCE ONE Administration ORDERS Category Date Time Status Chest XR -- portable [XR chest portable] Stat Exams 10/31/24 12:10 Completed BNP [NT Pro Brain Natriuretic Pep.] Stat Lab 10/31/24 12:10 Completed CBC [Complete Blood Count Auto Diff] Stat Lab 10/31/24 12:10 Completed Comprehensive Metabolic Panel Stat Lab 10/31/24 12:10 Completed D-Dimer Stat Lab 10/31/24 12:10 Completed Lipase Stat Lab 10/31/24 12:10 Completed Magnesium Stat Lab 10/31/24 12:10 Completed PT INR [Prothrombin Time INR] Stat Lab 10/31/24 12:10 Completed Trop I [Troponin I] Stat Lab 10/31/24 12:10 Completed Troponin I Q3H Lab 10/31/24 15:04 Completed Troponin I Q3H Lab 10/31/24 18:15 Ordered ECG Data Tracing #1: ECG Narrative: Independently interpreted by me rate is 57, rhythm is regular, no ST elevation in anatomical contiguous leads, QTc 369. Sinus bradycardia.
[2024-10-31 12:19] LABS: Hematocrit 43.7 % (42.0-52.0); Hemoglobin 14.2 g/dL (14.1-18.0); Immature Granulocytes % 0.7 %; Mean Corpuscular HGB Conc 32.5 g/dL (31.8-35.4); Mean Corpuscular Hemoglobin 30.5 pg (27.0-31.2); Mean Corpuscular Volume 94.0 fl (80-94); Nucleated Red Blood Cells % 0 %; Platelet Count 199 K/mm3 (142-424); Red Blood Count 4.65 M/mm3 (4.60-6.20); Red Cell Distribution Width-SD 44.3 fL; White Blood Count 9.0 K/mm3 (4.8-10.8)
[2024-10-31 12:27] LABS: INR 1.01 (0.9-1.1); Prothrombin Time 11.2 seconds (10.1-12.5)
[2024-10-31 12:30] LABS: Albumin Level 4.5 g/dl (3.5-5.0); Chloride 103 mmol/L (98-107); Potassium 4.6 mmoL/L (3.5-5.1); Sodium 140 mmol/L (136-145)
[2024-10-31] MEDS: ONDANSETRON 4MG/2ML VIAL 4 MG IV (12:31)
--- NOTE | 2024-10-31 12:31 | PC.NURSE ---
Went to administer medication to patient, stated he did not want his morphine at this time. Medication is documented as not given.
[2024-10-31 12:33] LABS: Alanine Aminotransferase 36 U/L (12-78); Albumin/Globulin Ratio 1.7 (1.1-1.8); Alkaline Phosphatase 70 U/L (38-126); Anion Gap 16.6 mEq/L (5-15); Aspartate Amino Transferase 37 U/L (17-59); Bilirubin,Total 1.3 mg/dl (0.2-1.3); Blood Urea Nitrogen 25 mg/dl (9-20); Calcium 9.2 mg/dl (8.4-10.2); Carbon Dioxide 25 mmol/L (22.0-30.0); Creatinine Clearance Estimated 89 mL/min (50-200); Creatinine,Serum 0.90 mg/dl (0.66-1.25); Estimated Glomerular Filt Rate 83 ml/min (>60); GFR (African American) 101 ML/MIN (>60); Globulin 2.7 g/dL (1.3-3.2); Glucose 144 mg/dl (74-100); Total Protein,Serum 7.2 g/dl (6.3-8.2)
[2024-10-31 12:35] LABS: Lipase 76 U/L (23-300); Magnesium 1.9 mg/dl (1.6-2.3)
[2024-10-31 12:44] LABS: D-Dimer 0.60 ug/mL (0.0-0.5)
[2024-10-31 12:46] LABS: NT Pro Brain Natriuretic Pep. 50.7 pg/mL (0-125)
[2024-10-31 12:50] LABS: Troponin I < 0.01 ng/ml (0.00-0.034)
--- NOTE | 2024-10-31 14:25 | PC.NURSE ---
no blood cultures ordered @ this time. verified with [facility]
[2024-10-31 15:44] LABS: Troponin I < 0.01 ng/ml (0.00-0.034)
== END 2024-10-31 16:07 | disposition home or self-care (01) ==
PROVIDERS: Nurse Practitioner; Emergency Provider Emergency Medicine; PCP Family Medicine
DX: J18.9 Pneumonia, unspecified organism (principal); R07.89 Other chest pain; R00.1 Bradycardia, unspecified; J44.9 Chronic obstructive pulmonary disease, unspecified; I10 Essential (primary) hypertension; E11.9 Type 2 diabetes mellitus without complications; Z86.79 Personal history of other diseases of the circulatory system; Z95.5 Presence of coronary angioplasty implant and graft
CPT/HCPCS: 71045; 80053; 83690; 83735; 83880; 84484; 85025; 85378; 85610; 93005; 96365; 96366; 96375; 99285; J0696; J2405

== ENCOUNTER 2024-12-11 09:30 | Outpatient (CLI) | payer MEDICARE, SELFPAY ==
--- OUTSIDE RECORDS SUMMARY | 2024-11-25 15:00 | XMS_ITS | Encounter Summary ---
Author Organization [facility] Address [address] [place] [address] Care Team Providers Care Process Owner Name Role Phone Abelardo Jennings MD Primary Care Provider Amie vailable Reason for Referral * Consultation (Routine) - Authorized Specialty Diagnoses / Procedures Referred By Salvatore t Referred To Contact Diagnoses Chronic hypoxic respiratory failure Bronchiectasis without complication (CMS/HCC) Chronic obstructive pulmonary disease, unspecified COPD type (CMS/HCC) Miguel A Torre MD [address] [address] Phone: tel: fax: Referral ID Status Reason Start Date Expiration Date V isits Requested Visits Authorized [id number] Authorized 11/25/2024 05/27/2026 1 1 Reason for Visit * Reason Comments Follow-up * Consultation (Routine) - Closed Specialty Diagnoses / Procedures Referred By Salvatore cisneros Referred To Contact Diagnoses Bronchiectasis without complication (CMS/HCC) Miguel A Torre MD [address] [address] Phone: tel: fax: Referral ID Status Reason Start Date Expiration Date Visits Re quested Visits Authorized [id number] Closed 04/22/2024 10/22/2025 1 1 Encounter Details Date Type Department Care Team ([facility] Contact Info) Description 11/25/2024 3:00 PM EDT Office Visit [facility] [address], [address] [place] [address] Miguel A Torre MD [address] [place] [address] Chronic hypoxic respiratory failure (Primary Dx); Bronchiectasis without complication (CMS/HCC); Chronic obstructive pulmonary disease, unspecified COPD type (CMS/HCC); Nocturnal hypoxia Social History Tobacco Use Types Packs/Day Years [...] on file documented as of this encounter Last Filed Vital Signs Vital Sign Reading Time Taken Comments Blood Pressure 172/82 11/25/2024 2:47 PM EDT pt has not taken meds this morning Pulse 61 11/25/2024 2:47 PM EDT Temperature 36.8 C (98.2 F) 11/25/2024 2:47 PM EDT Respiratory Rate - - Oxygen Saturation 93% 11/25/2024 2:4 7 PM EDT Inhaled Oxygen Concentration - - Weight 92.8 kg (204 lb 9.4 oz) 11/25/2024 2:47 PM EDT Height 182.9 cm (6') 11/25/2024 2:47 PM EDT Body Mass Index 27.75 11/25/2024 2:47 PM EDT documented in this encounter Miscellaneous Notes * Progress Notes - Miguel A Torre MD - 11/25/2024 3:00 PM EDT PULMONARY FOLLOW-UP OUTPATIENT NOTE: Patient ID/Chief Complaint: .Blake Esparza is a 69 y.o. male presenting for follow up on bronchiectasis. History of Present Illness: Blake Esparza is a 69 yo M with a PMHx of cystic bronchitis, COPD, exertional and nocturnal hypoxia, CAD, PCI, prior IN, ICM, HFmrEF, HTN, DM who presents for follow up. Seen by me on 10/23/23. At that time felt around his baseline. He could walk ~500 yards on uneven ground prior to needing to stop. Could climb at least 1 flight of stairs prior to needing to stop due to GUZMAN. Prior to that visit he did spend 1 night at [facility] for PNA and was treated with Abx and steroids. He was seen by Dr. Hernandez in 07/27/23 and was started on chronic azithro MWF which he had self stopped. Was using his vest daily but was not using his flutter valve. Was admitted to [facility] 11/2023 for 1 day. He was given azithro and prednisone. Last seen 04/22/24. At that time he felt well was around his baseline. He has been using azithro PRNwhen he does not feel well and is now back on it 250mg MWF. 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 He has been using his vest 4-5 times a week but has not been using his flutter valve. No sputum at that time. [place] the [place]24 for chest pain. Per pt they did a CXR and ruled out cardiac cause. Ultimatly he was diagnosed with PNA and given doxy and augmenting. At this time he feels around his baseline. He has his ups and downs. Is not having any sputum production. Is not using his vest or flutter valve regularly. No acute complaints. Denies f/c, weight loss, night sweats, PND, orthopnea, edema, hemoptysis PFSH: Reviewed in EMR, Significant Changes Noted Above Review of Systems: Constitutional: No fevers, chills, fatigue, no involuntary weight loss HEENT: No vision or hearing changes Respiratory: As Above Cardiac: No chest pain or palpitations, no lower extremity edema Allergic/Immunologic: No allergic triggers. Medications: Current Medications[1] Immunizations: Chart reviewed: immunizations are up to date and documented. Immunization History Administered Date(s) Administered Hep A, Adult 07/17/2003, 01/27/2004 Hep B, adult 07/17/2003, 08/26/2003, 02/03/2004 Influenza, High-dose, Split Virus, Trivalent, Injectable, preservative free 11/18/2019 Influenza, high-dose, quadrivalent 11/18/2019, 11/18/2019, 12/24/2020, 12/14/2021, 01/10/2023 Influenza, injectable, quadrivalent, preservative free 12/29/2015 Pfizer-BioNTech COVID-19 Bivalent (Sanchez Cap) 12+ years (faustino-sucrose) 12/14/2021 Pfizer-BioNTech COVID-19 Vaccine (Caruso Cap) 12+ years (faustino-sucrose) 07/24/2021 Pfizer-BioNTech COVID-19 Vaccine (Purple Cap) 12+ 03/27/2020, 04/17/2020, 11/19/2020 Pneumococcal 20-lorelei Conj Vaccine 07/08/2021 Rsvpref, Recombinant, Protein Subunit, Adjuvent 04/21/2023 TD (adult), 2 Lf tetanus toxoid, preservative free, adsorbed 07/17/2003 Physical Examination: Vital Signs: Blood pressure (!) 172/82, pulse 61, temperature 36.8 ??C (98.2 ??F), temperature source Temporal, height 1.829 m (6'), weight 92.8 kg (204 lb 9.4 oz), SpO2 93%. General: The patient appears in no acute distress. Alert, cooperative and interactive HEENT: NC/AT, PERRL, Normal nasal mucosa, MMM. Neck: Trachea midline, No masses, No JVD. Chest: Bilateral crackles. No wheezing, rhonchi, or rales. Normal work of breathing. Equal chest rise. Cardiac: Regular rhythm, normal rate, S1S2 auscultated. No murmurs, rubs or gallops Review of Data: Laboratory Studies: I personally reviewed recent lab work in EMR. Radiology Results: I have personally reviewed and interpreted the images in EMR. Pulmonary Function Testing: HRCT 04/18/2019 Moderate paraseptal emphysema. Stable appearance of cystic bronchiectasis. Stable 9 mm pulmonary nodule within the superior right lower lobe adjacent to the major fissure. No new suspicious pulmonary nodules. ? CT 01/01/21 Redemonstration of bilateral varicoid and cystic bronchiectasis with some scattered areas of nodularity and bronchial wall thickening, greatest in the left lower lobe. A few of these areas of nodularity are new from comparison and others are slightly improved. Paraseptal and centrilobular emphysemaalso noted with some areas of bandlike scarring. The largest discrete nodule measures up to 8 mm and is stable within measurement error from comparison. CT chest around 07/17/23 at [facility] Bilateral cystic bronchiectasis. Lingular airspace disease. 8mm RLL nodule unchanged from 2020. Emphysema. [place]: 06/25/20: FVC 2.06 (46%), FEV1 0.97 (28%), FEV1/FVC 47 12/24/20 FVC 2.41 (54%), FEV1 1.11 (33%), FEV1/FVC 46 There is severe airflow obstruction. [place] 10/13/22 FVC 2.52 (-2.76) FEV1 1.12 (-3.68) FEV1/FVC 45 Moderate obstruction Multiox 11/25/24 Rest on room air SpO2 95% HR 67 Ambulation on room air SpO2 86% Ambulation on 1L SpO2 85% HR 89 Ambulation on 2L SpO2 88-90% HR 92 Sputum 04/24/23 Klebsiella oxytoca 04/08/24 Ochrobactrum intermedium, Achromobacter xylosoxidans, and non-fermenting GNR Impression: Cystic Bronchiectasis Moderate COPD Exertional Hypoxemia Nocturnal Hypoxemia - unclear etiology at this time--> A1AT, LOUIE, ANCA, RF, SCL-70, MPO, SP-3, immunoglobulins negative; sweat chloride and ciliary biopsy negative although poor specimen for microscopic evaluation - pt has 0 of the 4 bennett features of PCD as outlined by ATS so we will not pursue further testing for the cause of his cystic bronchiectasis - sputum is growing 3 bacteria but more likely colonizers given lack of symptoms. Will recheck sputum today. It is possible the unidentified GNR is pseudomonas which would require attempted decolonization. If he were to develop symptoms of pulmonary infection would recommend Levaquin for 14 days. - orders placed for sputum CF culture and AFB if he starts to make sputum - changed inhaler from DPI advair and spiriva to breztri 04/22/24 with inhaler and spacer training done - can consider restarting chronic azithro MWF if frequent exacerbations - has received 2 courses of PO fluoroquinolones and inhaled Carlos for pseudomonas clearance - no sputum to send for AFB - no further NTM growth in cultures, unclear if this represents the precipitant or a complication of his bronchiectasis (or if it warrants treatment, as we have not been able to consistently identifyit on culture specimens) - continue supplemental oxygen, 2-3LPM with exertion and at night, multiox done today showing exertional hypoxia - instructed patient to call if increased sputum production and worsened dyspnea/functional status,which would likely require repeat culture for bacterial and AFB specimens - vest once daily - flutter valve daily - PFT with next visit Allergic Rhinitis - continue flonase and OTC antihistamine - not interested in singulair or referral for allergen desensitization injections Pulmonary Health Maintenance - UTD on COVID including booster - PCV 20 06/2021 - needs RSV and flu Total time spent 45 min reviewing prior records, imaging, spirometry and completing documentation [1] Current Outpatient Medications Medication Sig Dispense Refill albuterol 108 (90 Base) MCG/ACT inhaler INHALE 1-2 PUFFS EVERY 4-6 HOURS NEEDED AND DIRECTED. aspirin 81 MG chewable tablet Chew 1 tablet (81 mg) 1 (one) time each day. aspirin 81 mg tablet 30 tablet 11 atorvastatin (Lipitor) 80 MG tablet Take 1 tablet (80 mg) by mouth 1 (one) time each day. 90 tablet3 empagliflozin (Jardiance) 10 MG Take 1 tablet by mouth daily. 60 tablet 2 furosemide (Lasix) 40 MG tablet Take 1 tablet (40 mg total) by mouth 1 (one) time each day. (Patient taking differently: Take 1 tablet by mouth 1 time as needed.) 90 tablet 3 hydrOXYzine HCl (Atarax) 10 MG tablet Take 1 tablet (10 mg) by mouth every 8 (eight) hours if needed for itching. ipratropium-albuterol (Duo-Neb) 0.5-2.5 mg/3 mL nebulizer solution Take 3 mL by nebulization every 6 (six) hours if needed for wheezing. lisinopril 20 MG tablet Take 1 tablet (20 mg) by mouth 1 (one) time each day. 56 tablet 0 metFORMIN XR (Glucophage-XR) 500 MG 24 hr tablet Take 2 tablets (1,000 mg) by mouth 2 (two) times aday. nitroglycerin (Nitrostat) 0.[address] 1 tablet (0.4 mg total) under the tongue every 5 (five) minutes if needed for chest pain. 90 tablet 1 Spiriva HandiHaler 18 MCG inhalation capsule INHALE THE CONTENTS OF 1 CAPSULE ONE TIME EACH DAY 30 capsule 6 atorvastatin (Lipitor) 40 MG tablet Take 2 tablets (80 mg) by mouth 1 (one) time each day. (Patientnot taking: Reported on 11/25/2024) 56 tablet 0 carvedilol (Coreg) 12.5 MG tablet Take 0.5 tablets by mouth in the morning and 0.5 tablets in the evening. Take with meals. 90 tablet 3 cyclopentolate (Cyclogyl) 1 % ophthalmic solution INSTILL 1 DROP INTO THE AFFECTED EYE UPON AWAKENING, 1 DROP WHEN LEAVING HOME, AND 1 DROP UPON ARRIVAL (Patient not taking: Reported on 11/25/2024) erythromycin (Romycin) 5 MG/GM ophthalmic ointment APPLY A THIN LAYER OF OINTMENT (1/4 INCH STRIP) TWICE DAILY TO AFFECTED EYE 3 DAYS BEFORE BUT NOT THE DAY OF SURGERY (Patient not taking: Reported on 11/25/2024) fluticasone (Flonase) 50 MCG/ACT nasal spray Use 2 sprays in each nostril once a day. Shake gently.Before first use, prime pump. After use, clean tip and replace cap. 16 g 3 glipiZIDE (Glucotrol) 5 MG tablet Take 1 tablet (5 mg) by mouth 1 (one) time each day. HumaLOG KWIKPEN 100 UNIT/ML injection pen USE sliding scale BEFORE meals AND AT bedtime DIRECTED. Inject 2 units FOR blood sugar 151-200. 4 units FOR 201- 250. 6 units FOR 251-300. 8 units FOR 301-350. 10 units FOR 351-400. 12 units FOR 401-500. >500 call MD (Patient not taking: Reported on 11/25/2024) pioglitazone (Actos) 15 MG tablet Take 1 tablet (15 mg) by mouth 1 (one) time each day. (Patient not taking: Reported on 11/25/2024) predniSONE (Deltasone) 20 MG tablet TAKE 1 TABLET BY MOUTH TWICE DAILY FOR 5 DAYS, THEN 1 TABLET ONCE DAILY FOR 5 DAYS (Patient not taking: Reported on 11/25/2024) sertraline (Zoloft) 50 MG tablet (Patient not taking: Reported on 11/25/2024) No current facility-administered medications for this visit. documented in this encounter Plan of Treatment Upcoming Encounters Date Type Department Care Team ([facility] st Contact Info) Description 12/20/2024 10:40 AM EST Office Visit [facility] [address], [address] [place] [address] See Zafar MD [address] [place] [id number] 05/26/2025 10:00 AM EDT Ancillary Procedure [facility] [address], [address] [place] [address] 05/26/2025 11:40 AM EDT Office Visit [facility] [address], [address] [place] [address] Miguel A Torre MD [address] [place] [address] Scheduled Orders Name Type Priority Associated Diagnoses Orde r Schedule Pulmonary Function Test PFT Routine Chronic hypoxic respiratory failure Bronchiectasis without complication ([facility]/HCC) Chronic obstructive pulmonary disease, unspecified COPD type (CMS/HCC) Expected: 05/26/2025, Expires: 05/29/2026 Scheduled Referrals Name Type Priority Associated Diagnoses Orde r Schedule Follow Up Pulm Outpatient Referral Routine Chronic hypoxic respiratory failure Bronchiectasis without complication (CMS/HCC) Chronic obstructive pulmonary disease, unspecified COPD type (CMS/HCC) Expected: 05/26/2025, Expires: 12/26/2025 documented as of this encounter Visit Diagnoses Diagnosis Chronic hypoxic respiratory failure- Primary Bronchiectasis without complication (CMS/HCC) Chronic obstructive pulmonary disease, unspecified COPD type (CMS/HCC) Nocturnal hypoxia documented in this encounter Additional Health Concerns Infection Onset Date Last Indicated Resolved Time Tuberculosis Rule-Out 04/08/2024 04/08/2024 Assessment Noted Time PHQ-9 Depression Total Score: 0 04/23/19 25 9:49 AM EDT A fall risk assessment has been complete d for the patient 11/25/2024 2:44 PM EDT A Body Mass Index follow-up plan has been documented for the patient 11/25/2024 3:34 PM EDT documented as of this encounter Care Teams Process Owner Relationship Specialty Start Date End Date Abelardo Jennings MD PCP - General Family Medicine 11/26/21 documented as of this encounter
--- OUTSIDE RECORDS SUMMARY | 2024-12-12 14:12 | XMS_ITS ---
Author Organization [facility] Address [address] [place] [address] Phone Care Team Providers Care Content Curator Name Role Phone Jerri ARCHER, Evan Layton Unavailable [phone] Reason for Referral Date Encounter Description Provider [...] Resolved Date Provider Condition S tatus Joint Pain Shoulder Right 12/21/2020 Evan Guthrie MD Active Last Documented On 1 2:43PM ; [facility], [facility] Plan of Treatment Instructions to patient Lose weight Last Documented On 2 10:51AM ; [facility] Lose weight Last Documented On 2 10:24AM ; [facility] Lose weight Last Documented On 2 2:45PM ; [facility] Lose weight Last Documented On 2 10:14AM ; [facility] Lose weight Last Documented On 2 2:21PM ; [facility] Lose weight Last Documented On 2 1:30PM ; [facility] Lose weight Last Documented On 1 3:06PM ; [facility] Assessments Includes: Assessments for all patient encounters No Assessments Recorded Instructions Includes: Instructions for all patient encounters Instructions to patient Lose weight Last Documented On 2 10:51AM ; [facility], [facility] Lose weight Last Documented On 2 10:24AM ; [facility] Lose weight Last Documented On 2 2:45PM ; [facility] Lose weight Last Documented On 2 10:14AM ; [facility], [facility] Lose weight Last Documented On 2 2:21PM ; [facility] Lose weight Last Documented On 2 1:30PM ; [facility], [facility] Lose weight Last Documented On 1 3:06PM ; [facility] Medical Equipment - Implanted Devices Includes: Current and historical Devices No Medical Equipment Recorded Medications Includes: Current and historical Medications Current Medications (continue as prescribed) Atorvastatin Calcium 40 MG Oral Tablet 08/23/2021 Pr ovider: Diagnosis: Last Documented On 2 2:47PM By Fatmata Otto ; [facility] Carvedilol 12.5 MG Oral Tablet 08/23/2021 Provider: Diagnosis: Last Documented On 2 2:47PM By Fatmata Otto ; [facility] Lisinopril 20 MG Oral Tablet 08/23/2021 Provider: Diagnosis: Last Documented On 2 2:47PM By Fatmata Otto ; [facility] Spiriva HandiHaler 18 MCG Inhalation Capsule 2 Provider: Diagnosis: Last Documented On 2 2:47PM By Fatmata Otto ; [facility] Fluticasone Propionate 50 MCG/ACT Nasal Suspension Provider: Diagnosis: Last Documented On 2 2:47PM By Fatmata Otto ; [facility] glipiZIDE 5 MG Oral Tablet 06/30/2021 Provider: Diagnosis: Last Documented On 2 2:47PM By Fatmata Otto ; [facility] metFORMIN HCl 1000 MG Oral Tablet 12/21/2020 Provide r: Diagnosis: Last Documented On 1 3:04PM By Ltea Alejo ; [facility], [facility] Clopidogrel Bisulfate 75 MG Oral Tablet 12/21/2020 Sisi jones: Diagnosis: Last Documented On 1 3:03PM By Leta Alejo ; [facility] Past Medications on file HYDROcodone-Acetaminophen 5- 325 MG Oral Tablet 04/22/2021 - 05/06/2021 Provider: Evan Guthrie MD Diagnosis: once a day Last Documented On 2 3:11PM By Evan Guthrie ; [facility], [facility] Zofran 4 MG Oral Tablet 01/21/2021 - 01/31/2021 Provid er: Evan Guthrie MD Diagnosis: Take 1 tablet every 8 hrs pr n pain Take 1 tablet every 8 hrs prn post op nausea Last Documented On 1 2:04PM By Deysi Valentino ; [facility], [facility] Benzoyl Peroxide Wash 5% External Liquid 01/21/2021 - 2021 Provider: Evan moore MD Diagnosis: use as directed by Dr. Guthrie Last Documented On 1 2:04PM By Deysi Valentino ; [facility], [facility] metFORMIN HCl 1000 MG Oral Tablet 12/21/2020 - 022 Provider: Diagnosis: Last Documented On 2 1:51PM By Lily Benton ; [facility], [facility] Carvedilol 12.5 MG Oral Tablet 12/21/2020 - 08/23/2021 Provider: Diagnosis: Last Documented On 2 2:47PM By Fatmata Otto ; [facility], [facility] Atorvastatin Calcium 40 MG Oral Tablet 12/21/2020 - Provider: Diagnosis: Last Documented On 2 2:47PM By Fatmata Otto ; [facility], [facility] Medications Administered Includes: Administered Medications in patient's chart No Administered Medications Recorded Results Includes: Results from 12/13/2023 through 12/12/2024 No Results Recorded For Specified Dates History of Present Illness History of Present Illness not supported for this document type No History of Present Illness Recorded Social History Description Last Updated Tobacco non-user 10/25/2021 Last Documented On 2 1:24PM ; [facility], [facility] Not a smoker 08/23/2021 Last Documented On 2 8:36AM ; [facility] Non-smoker 12/21/2020 Last Documented On 1 2:03PM ; [facility] Caffeine use 12/21/2020 Last Documented On 1 2:03PM ; [facility] Exercising regularly 12/21/2020 Last Documented On 1 2:03PM ; [facility] No recent change in diet 12/21/2020 Last Documented On 1 2:03PM ; [facility] Not a current smoker. 12/21/2020 Last Documented On 1 2:03PM ; [facility] Not using alcohol 12/21/2020 Last Documented On 1 2:03PM ; [facility] Not using drugs 12/21/2020 Last Documented On 1 2:03PM ; [facility] Smoking Status Unknown Medical History Includes: Medical History in patient's chart Description Last Updated History of asthma 12/21/2020 Last Documented On 1 2:03PM ; [facility] History of diabetes mellitus 12/21/2020 Last Documented On 1 2:03PM ; [facility] History of Heart Attack / Stroke 021 Last Documented On 1 2:03PM ; [facility] Hypertension 12/21/2020 Last Documented On 1 2:03PM ; [facility] No recent immunization for flu 1 Last Documented On 1 2:03PM ; [facility] No recent immunization for pneumococcal pneumonia 12/21/2020 Last Documented On 1 2:03PM ; [facility] Family History Includes: Family History in patient's chart Description Last Updated Diabetes mellitus 12/21/2020 Last Documented On 1 2:03PM ; [facility] Review of Systems Review of Systems not [...] Patient Last Documented On 2 2:52PM ; [facility] Influenza 2 12/14/2021 Complete (Reported) Patient Last Documented On 2 10:59AM ; [facility] PCV (Pneumovax 23) 1 12/14/2020 Complete ( Reported) Patient Last Documented On 2 2:52PM ; [facility] PCV (Pneumovax 23) 2 12/14/2021 Complete ( Reported) Patient Last Documented On 2 10:59AM ; [facility] Td 1 08/23/2021 Complete (Refused - Patient objection) [facility] Last Documented On 2 2:52PM ; [facility] Allergies Includes: Active, inactive, and resolved Allergies No Known Allergies Insurance Includes: Active Insurance Policies Plan Name Member ID Group # Subscriber Relationship Effect lauren Dates 1 - [facility] [id number] Blake Woods 2 - [employer] ([place]) Medicare [id number] Blake Woods 11/13/2021 - Un known Clinical Notes Includes: Signed Clinical Notes starting from 01/27/2022 No Clinical Notes Recorded
--- OUTSIDE RECORDS SUMMARY | 2024-12-12 14:12 | XMS_ITS | Encounter Summary ---
Author Organization Healthcare Address [address] [place] [address] Care Team Providers Care Repair Operator Name Role Phone Abelardo Jennings MD Primary Care Provider Amie vailable Encounter Details Date Type Department Care Team (Latest Contact Info) Description 11/25/2024 Travel Social History Tobacco Use Types Packs/Day Years [...] Care Team (Late st Contact Info) Description 12/20/2024 10:40 AM EST Office Visit [facility] [place] [address], [address] [place] [address] See Zafar MD [address] [place] [address] 05/26/2025 10:00 AM EDT Ancillary Procedure [facility] [address] [facility] [address], [address] [place] [address] 05/26/2025 11:40 AM EDT Office Visit [facility] [address] [facility] [address] [facility] [address], [address] [place] [address] Miguel A Torre MD [address] [place] [address] documented as of this encounter Visit Diagnoses [...] documented as of this encounter Care Teams Repair Operator Relationship Specialty Start Date End Date Abelardo Jennings MD PCP - General Family Medicine 11/26/21 documented as of this encounter
--- OUTSIDE RECORDS SUMMARY | 2024-12-12 14:12 | XMS_ITS | Clinical Summary ---
Author Organization [facility] , [facility] Address [address] [place] [address] Phone Care Team Providers Care Cigar Head Holer Name Role Phone Jerri ARCHER, Evan Layton Unavailable [phone] Reason for Visit and Chief Complaint The Chief Complaint is: Right shoulder pain Problems Includes: Problems addressed during this encounter and other active Problems All Visits Onset Date Resolved Date Provider Condition S tatus Joint Pain Shoulder Right 12/21/2020 Evan Guthrie MD Active Last Documented On 1 2:43PM ; [facility] Plan of Treatment He is diabetic. [...] - Last Documented On 06/22/2021 1:25PM ; [facility], [facility] Instructions to patient Lose weight Last Documented On 2 10:14AM ; [facility], [facility] Assessments Includes: Assessments from this encounter Findings Right postop frozen shoulder - Last Documented On 06/22/2021 1:25PM ; [facility], [facility] Instructions Includes: Instructions from this encounter Instructions to patient Lose weight Last Documented On 2 10:14AM ; [facility] Medical Equipment - Implanted Devices Includes: Current Devices No Medical Equipment Recorded Medications Includes: Medications discussed during this encounter and other current Medications Current Medications (continue as prescribed) Atorvastatin Calcium 40 MG Oral Tablet 08/23/2021 Pr ovider: Diagnosis: Last Documented On 2 2:47PM By Fatmata Otto ; [facility] Carvedilol 12.5 MG Oral Tablet 08/23/2021 Provider: Diagnosis: Last Documented On 2 2:47PM By Fatmata Otto ; [facility] Lisinopril 20 MG Oral Tablet 08/23/2021 Provider: Diagnosis: Last Documented On 2 2:47PM By Fatmata Otto ; [facility] Spiriva HandiHaler 18 MCG Inhalation Capsule 2 Provider: Diagnosis: Last Documented On 2 2:47PM By Fatmata Otto ; [facility] Fluticasone Propionate 50 MCG/ACT Nasal Suspension Provider: Diagnosis: Last Documented On 2 2:47PM By Fatmata Otto ; [facility] glipiZIDE 5 MG Oral Tablet 06/30/2021 Provider: Diagnosis: Last Documented On 2 2:47PM By Fatmata Otto ; [facility] metFORMIN HCl 1000 MG Oral Tablet 12/21/2020 Provide r: Diagnosis: Last Documented On 1 3:04PM By Leta Alejo ; [facility], [facility] Clopidogrel Bisulfate 75 MG Oral Tablet 12/21/2020 P mander: Diagnosis: Last Documented On 1 3:03PM By Leta Alejo ; [facility] Past Medications on file HYDROcodone-Acetaminophen 5- 325 MG Oral Tablet 04/22/2021 - 05/06/2021 Provider: Evan Guthrie MD Diagnosis: once a day Last Documented On 2 3:11PM By Evan Guthrie ; [facility] Zofran 4 MG Oral Tablet 01/21/2021 - 01/31/2021 Provid er: Evan Guthrie MD Diagnosis: Take 1 tablet every 8 hrs pr n pain Take 1 tablet every 8 hrs prn post op nausea Last Documented On 1 2:04PM By Deysi Valentino ; [facility], [facility] Benzoyl Peroxide Wash 5% External Liquid 01/21/2021 - 2021 Provider: Evan moore MD Diagnosis: use as directed by Dr. Guthrie Last Documented On 1 2:04PM By [facility], [facility] Medications Administered Includes: Administered Medications from this encounter No Administered Medications Recorded Vital Signs Includes: Vital Signs from this encounter Vital Name 06/22/2021 10:17A Blood Pressure Sitting (mmHg) 115/71 Pulse Rate-Sitting (bpm) 78 Height (in) 70 Weight (lb) 205 Body Mass Index (kg/m2) 29.4 Body Surface Area (m2) 2.1 Note: hdv Last Documented: On 06/22/2021 10:18A M ; [facility], [facility] Results Includes: Results discussed [...] Documented On 2 10:14AM ; [facility], [facility] Caffeine use 12/21/2020 Last Documented On 2 10:14AM ; [facility], [facility] Exercising regularly 12/21/2020 Last Documented On 2 10:14AM ; [facility], [facility] No recent change in diet 12/21/2020 Last Documented On 2 10:14AM ; [facility], [facility] Not a current smoker. 12/21/2020 Last Documented On 2 10:14AM ; [facility], [facility] Not using alcohol 12/21/2020 Last Documented On 2 10:14AM ; [facility], [facility] Not using drugs 12/21/2020 Last Documented On 2 10:14AM ; [facility] Smoking Status Unknown Procedures and Surgical History Includes: Procedures from this encounter Procedures Code Diagnosis Performing Provider Service L ocation Service Date use of tobacco assessment performed 1000F Last Documented On 2 10:14AM ; [facility] an X-ray was performed 49140 Last Documented On 2 10:14AM ; [facility] an MRI was performed [id number] Last Documented On 2 10:14AM ; [facility] Medical History Includes: Medical History addressed during this encounter Description Last Updated History of asthma 12/21/2020 Last Documented On 2 10:14AM ; [facility] History of diabetes mellitus 12/21/2020 Last Documented On 2 10:14AM ; [facility] History of Heart Attack / Stroke 021 Last Documented On 2 10:14AM ; [facility] Hypertension 12/21/2020 Last Documented On 2 10:14AM ; [facility] No recent immunization for flu 1 Last Documented On 2 10:14AM ; [facility] No recent immunization for pneumococcal pneumonia 12/21/2020 Last Documented On 2 10:14AM ; [facility] Family History Includes: Family History addressed during this encounter Description Last Updated Diabetes mellitus 12/21/2020 Last Documented On 2 10:14AM ; [facility] Review of Systems Includes: Review of [...] Time Diagnosis Follow Up Vern Michelle PA-C [facility] 2 10:13AM 10:27AM Insurance Includes: Active Insurance Policies Plan Name Member ID Group # Subscriber Relationship Effect lauren Dates 1 - [facility] [id number] Blake Woods 2 - BCBS ([place]) Medicare [id number] Blake Woods 11/13/2021 - Un known Clinical Notes Includes: Clinical Notes from this encounter No Clinical Notes Recorded
--- OUTSIDE RECORDS SUMMARY | 2024-12-12 14:12 | XMS_ITS | Encounter Summary ---
Author Organization [facility] Address [address] [place] [address] Care Team Providers Care Claim Clerk Name Role Phone Abelardo Jennings MD Primary Care Provider Amie vailable Reason for Visit * Reason Onset Date Comments Med Refill 12/09/2024 Encounter Details Date Type Department Care Team (Late st Contact Info) Description 12/09/2024 Refill [facility] [place] [address], [address] [place] [address] See Zafar MD [address] [place] [address] Social History Tobacco Use Types Packs/Day Years [...] Description 12/20/2024 10:40 AM EST Office Visit [facility] [place] [place], [address] [place] [address] See Zafar MD [address] [place] [address] 05/26/2025 10:00 AM EDT Ancillary Procedure [facility] [address], [address] [place] [address] 05/26/2025 11:40 AM EDT Office Visit [facility] [address], [address] [place] [address] Miguel A Torre MD [address] [place] [address] documented as of this encounter [...] documented as of this encounter Care Teams Claim Clerk Relationship Specialty Start Date End Date Abelardo Jennings MD PCP - General Family Medicine 11/26/21 documented as of this encounter
--- OUTSIDE RECORDS SUMMARY | 2024-12-12 14:12 | XMS_ITS | Clinical Summary ---
Author Organization [facility] , [facility] Address [address] [place] [address] Phone Care Team Providers Care Rubber Goods Assembler Name Role Phone Jerri ARCHER, Evan Layton Unavailable [phone] Reason for Referral Date Encounter Description Provider [...] Active Last Documented On 1 2:43PM ; [facility], [facility] Plan of Treatment Patient is progressing as expected. Rotator cuff repair rehab typically takes between 6- 8 months. The patient will have no restrictions in therapy at this time. They understand the recommendations. Patient will follow-up as scheduled, if there are any issues they can feel free to call the office. - Last Documented On 05/03/2021 11:42AM ; [facility] Instructions to patient Lose weight Last Documented On 2 2:21PM ; [facility], [facility] Assessments Includes: Assessments from this encounter Findings Cuff repair - Last Documented On 05/03/2021 11:42AM ; [facility], [facility] Instructions Includes: Instructions from this encounter Instructions to patient Lose weight Last Documented On 2 2:21PM ; [facility], [facility] Medical Equipment - Implanted Devices Includes: Current Devices No Medical Equipment Recorded Medications Includes: Medications discussed during this encounter and other current Medications New / Renewed during this visit Evan Guthrie MD on 04/22/2021 HYDROcodone-Acetaminophen 5- 325 MG Oral Tablet Provider: Evan Guthrie MD 14 day supply: 14 tablet, 0 refills Diagnosis: once a day Pharmacy: [facility] [phone] [facility], [id number] - Last Documented On 2 3:11PM By Evan Guthrie ; [facility], [facility] Current Medications (continue as prescribed) Atorvastatin Calcium 40 MG Oral Tablet 08/23/2021 Pr ovider: Diagnosis: Last Documented On 2 2:47PM By Fatmata Otto ; [facility], [facility] Carvedilol 12.5 MG Oral Tablet 08/23/2021 Provider: Diagnosis: Last Documented On 2 2:47PM By Fatmata Otto ; [facility], [facility] Lisinopril 20 MG Oral Tablet 08/23/2021 Provider: Diagnosis: Last Documented On 2 2:47PM By Fatmata Otto ; [facility], [facility] Spiriva HandiHaler 18 MCG Inhalation Capsule 2 Provider: Diagnosis: Last Documented On 2 2:47PM By Fatmata Otto ; [facility], [facility] Fluticasone Propionate 50 MCG/ACT Nasal Suspension Provider: Diagnosis: Last Documented On 2 2:47PM By Fatmata Otto ; [facility], [facility] glipiZIDE 5 MG Oral Tablet 06/30/2021 Provider: Diagnosis: Last Documented On 2 2:47PM By Fatmata Otto ; [facility], [facility] metFORMIN HCl 1000 MG Oral Tablet 12/21/2020 Provide r: Diagnosis: Last Documented On 1 3:04PM By Leta Alejo ; [facility], [facility] Clopidogrel Bisulfate 75 MG Oral Tablet 12/21/2020 P rovider: Diagnosis: Last Documented On 1 3:03PM By Leta Alejo ; [facility], [facility] Past Medications on file Zofran 4 MG Oral Tablet 01/21/2021 - 01/31/2021 Provid er: Evan Guthrie MD Diagnosis: Take 1 tablet every 8 hrs pr n pain Take 1 tablet every 8 hrs prn post op nausea Last Documented On 1 2:04PM By Deysi Valentino ; [facility], [facility] Benzoyl Peroxide Wash 5% External Liquid 01/21/2021 - 2021 Provider: Evan moore MD Diagnosis: use as directed by Dr. Guthrie Last Documented On 1 2:04PM By Deysi Valentino ; [facility], [facility] Medications Administered Includes: Administered Medications from this encounter No Administered Medications Recorded Vital Signs Includes: Vital Signs from this encounter Vital Name 04/22/2021 02:28P Blood Pressure Sitting R 166/77 Pulse Rate-Sitting (bpm) 81 Height (in) 70 Weight (lb) 208 Body Mass Index (kg/m2) 29.8 Body Surface Area (m2) 2.1 Note: mb Last Documented: On 04/22/2021 2:28PM ; [facility], [facility] Results Includes: Results discussed during this [...] 12/21/2020 Last Documented On 2 2:21PM ; [facility], [facility] Caffeine use 12/21/2020 Last Documented On 2 2:21PM ; [facility], [facility] Exercising regularly 12/21/2020 Last Documented On 2 2:21PM ; [facility], [facility] No recent change in diet 12/21/2020 Last Documented On 2 2:21PM ; [facility], [facility] Not a current smoker. 12/21/2020 Last Documented On 2 2:21PM ; [facility], [facility] Not using alcohol 12/21/2020 Last Documented On 2 2:21PM ; [facility], [facility] Not using drugs 12/21/2020 Last Documented On 2 2:21PM ; [facility], [facility] Smoking Status Unknown Procedures and Surgical History Includes: Procedures from this encounter Procedures Code Diagnosis Performing Provider Service L ocation Service Date use of tobacco assessment performed 1000F Last Documented On 2 2:21PM ; [facility] referral to physician see PCP for BP Last Documented On 2 2:21PM ; [facility] an X-ray was performed [id number] Last Documented On 2 2:21PM ; [facility] an MRI was performed [id number] Last Documented On 2 2:21PM ; [facility] Medical History Includes: Medical History addressed during this encounter Description Last Updated History of asthma 12/21/2020 Last Documented On 2 2:21PM ; [facility] History of diabetes mellitus 12/21/2020 Last Documented On 2 2:21PM ; [facility] History of Heart Attack / Stroke 021 Last Documented On 2 2:21PM ; [facility] Hypertension 12/21/2020 Last Documented On 2 2:21PM ; [facility] No recent immunization for flu Last Documented On 2 2:21PM ; [facility] No recent immunization for pneumococcal pneumonia 12/21/2020 Last Documented On 2 2:21PM ; [facility] Family History Includes: Family History addressed during this encounter Description Last Updated Diabetes mellitus 12/21/2020 Last Documented On 2 2:21PM ; [facility] Review of Systems Includes: Review [...] Time Diagnosis Post Op Vern Michelle PA-C [facility] 2 2:17PM 2:33PM Insurance Includes: Active Insurance Policies Plan Name Member ID Group # Subscriber Relationship Effect lauren Dates 1 - [facility] [id number] Blake Woods 2 - BCBS ([place]) Medicare [id number] Blake Woods 11/13/2021 - Un known Clinical Notes Includes: Clinical Notes from this encounter No Clinical Notes Recorded
--- OUTSIDE RECORDS SUMMARY | 2024-12-12 14:13 | XMS_ITS | Encounter Summary ---
Author Organization Healthcare Address [address] [place] [address] Care Team Providers Care Research Environmental Engineer Name Role Phone Abelardo Jennings MD Primary Care Provider Amie vailable Reason for Visit * Reason Onset Date Comments Med Refill 10/17/2024 Encounter Details Date Type Department Care Team (Late st Contact Info) Description 10/17/2024 [facility]ill [facility] [address] [place] [id number] Miguel A Torre MD [address] [facility] [address] [place] [address] Chronic obstructive pulmonary disease, unspecified [...] Description 12/20/2024 10:40 AM EST Office Visit [facility] [place] [address], [address] [place] [address] See Zafar MD [address] [place] [address] 05/26/2025 10:00 AM EDT Ancillary Procedure [facility] [address], [address] [place] [address] 05/26/2025 11:40 AM EDT Office Visit [facility] [address] [place] [address] Miguel A Torre MD [address] [place] [address] documented as of this encounter [...] documented as of this encounter Care Teams Research Environmental Engineer Relationship Specialty Start Date End Date Abelardo Jennings MD PCP - General Family Medicine 11/26/21 documented as of this encounter
--- OUTSIDE RECORDS SUMMARY | 2024-12-12 14:13 | XMS_ITS | Clinical Summary ---
Author Organization [facility] Address [address] [place] [address] Phone Care Team Providers Care Soap Mixer Name Role Phone Jerri ARCHER, Evan Layton Unavailable [phone] Reason for Referral Date Encounter Description Provider [...] Active Last Documented On 1 2:43PM ; [facility], [facility] Plan of Treatment Fall Risk Assessment: [...] - Last Documented On 08/25/2021 8:36AM ; [facility], [facility] He is not going to therapy at [...] - Last Documented On 08/25/2021 8:36AM ; [facility], [facility] Instructions to patient Lose weight Last Documented On 2 2:45PM ; [facility], [facility] Assessments Includes: Assessments from this encounter Findings 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 - Last Documented On 08/25/2021 8:36AM ; [facility], [facility] Instructions Includes: Instructions from this encounter Instructions to patient Lose weight Last Documented On 2 2:45PM ; [facility], [facility] Medical Equipment - Implanted Devices Includes: Current Devices No Medical Equipment Recorded Medications Includes: Medications discussed during this encounter and other current Medications Discontinued / Stopped on this date on 12/21/2020 Carvedilol 12.5 MG Oral Tablet Provider: Diagnosis: Last Documented On 2 2:47PM By Fatmata Otto ; [facility], [facility] Atorvastatin Calcium 40 MG Oral Tablet Pr ovider: Diagnosis: Last Documented On 2 2:47PM By Fatmata Otto ; [facility], [facility] Current Medications (continue as prescribed) Atorvastatin Calcium 40 MG Oral Tablet 08/23/2021 Pr ovider: Diagnosis: Last Documented On 2 2:47PM By Fatmata Otto ; [facility] Carvedilol 12.5 MG Oral Tablet 08/23/2021 Provider: Diagnosis: Last Documented On 2 2:47PM By Fatmata Otto ; [facility] Lisinopril 20 MG Oral Tablet 08/23/2021 Provider: Diagnosis: Last Documented On 2 2:47PM By Fatmata Otto ; [facility] Spiriva HandiHaler 18 MCG Inhalation Capsule Provider: Diagnosis: Last Documented On 2 2:47PM By Fatmata Otto ; [facility] Fluticasone Propionate 50 MCG/ACT Nasal Suspension Provider: Diagnosis: Last Documented On 2 2:47PM By Fatmata Otto ; [facility] glipiZIDE 5 MG Oral Tablet 06/30/2021 Provider: Diagnosis: Last Documented On 2 2:47PM By Fatmata Otto ; [facility] metFORMIN HCl 1000 MG Oral Tablet 12/21/2020 Provide r: Diagnosis: Last Documented On 1 3:04PM By Leta Alejo ; [facility], [facility] Clopidogrel Bisulfate 75 MG Oral Tablet 12/21/2020 P rovider: Diagnosis: Last Documented On 1 3:03PM By Leta Alejo ; [facility], [facility] Past Medications on file HYDROcodone-Acetaminophen 5- 325 MG Oral Tablet 04/22/2021 - 05/06/2021 Provider: Evan Guthrie MD Diagnosis: once a day Last Documented On 2 3:11PM By [facility] Zofran 4 MG Oral Tablet 01/21/2021 - 01/31/2021 Provid er: Evan Guthrie MD Diagnosis: Take 1 tablet every 8 hrs pr n pain Take 1 tablet every 8 hrs prn post op nausea Last Documented On 1 2:04PM By Deysi Valentino ; [facility] Benzoyl Peroxide Wash 5% External Liquid 01/21/2021 - 2021 Provider: Evan moore MD Diagnosis: use as directed by Dr. Guthrie Last Documented On 1 2:04PM By Deysi Valentino ; [facility] Medications Administered Includes: Administered Medications from this encounter No Administered Medications Recorded Vital Signs Includes: Vital Signs from this encounter Vital Name 08/23/2021 02:52P Blood Pressure Sitting (mmHg) 96/63 Pulse Rate-Sitting (bpm) 77 Height (in) 70 Weight (lb) 205 Body Mass Index (kg/m2) 29.4 Body Surface Area (m2) 2.1 Note: hdv Last Documented: On 08/23/2021 2:53PM ; [facility], [facility] Results Includes: Results discussed during this [...] 08/23/2021 Last Documented On 2 8:36AM ; [facility] Non-smoker 12/21/2020 Last Documented On 2 2:45PM ; [facility], [facility] Caffeine use 12/21/2020 Last Documented On 2 2:45PM ; [facility], [facility] Exercising regularly 12/21/2020 Last Documented On 2 2:45PM ; [facility], [facility] No recent change in diet 12/21/2020 Last Documented On 2 2:45PM ; [facility] Not a current smoker. 12/21/2020 Last Documented On 2 2:45PM ; [facility], [facility] Not using alcohol 12/21/2020 Last Documented On 2 2:45PM ; [facility], [facility] Not using drugs 12/21/2020 Last Documented On 2 2:45PM ; [facility], [facility] Smoking Status Unknown Procedures and Surgical History Includes: Procedures from this encounter Procedures Code Diagnosis Performing Provider Service L ocation Service Date use of tobacco assessment performed 1000F Last Documented On 2 2:45PM ; [facility], [facility] patient screened for future fall risk 3288F Last Documented On 2 2:54PM ; [facility] follow-up visit not in one month with PC P for elevated BP Last Documented On 2 2:54PM ; [facility] no referral to physician Last Documented On 2 2:54PM ; [facility] an X-ray was performed [id number] Last Documented On 2 2:45PM ; [facility] an MRI was performed [id number] Last Documented On 2 2:45PM ; [facility] Medical History Includes: Medical History addressed during this encounter Description Last Updated History of asthma 12/21/2020 Last Documented On 2 2:45PM ; [facility] History of diabetes mellitus 12/21/2020 Last Documented On 2 2:45PM ; [facility] History of Heart Attack / Stroke 021 Last Documented On 2 2:45PM ; [facility], [facility] Hypertension 12/21/2020 Last Documented On 2 2:45PM ; [facility] No recent immunization for flu 1 Last Documented On 2 2:45PM ; [facility] No recent immunization for pneumococcal pneumonia 12/21/2020 Last Documented On 2 2:45PM ; [facility] Family History Includes: Family History addressed during this encounter Description Last Updated Diabetes mellitus 12/21/2020 Last Documented On 2 2:45PM ; [facility] Review of Systems Includes: Review of Systems [...] Patient Last Documented On 2 2:52PM ; [facility] PCV (Pneumovax 23) 1 12/14/2020 Complete ( Reported) Patient Last Documented On 2 2:52PM ; [facility] Td 1 08/23/2021 Complete (Refused - Patient objection) [facility] Last Documented On 2 2:52PM ; [facility], [facility] Allergies Includes: Active Allergies No Known Allergies Encounters Encounter Provider Location Date Check-In Time Check- Out Time Diagnosis Follow Up Vren Michelle PA-C [facility] 2 2:46PM 2:59PM Insurance Includes: Active Insurance Policies Plan Name Member ID Group # Subscriber Relationship Effect lauren Dates 1 - BCBS [facility] [id number] Blake Woods 2 - BCBS ([place]) Medicare [id number] Blake Woods 11/13/2021 - Un known Clinical Notes Includes: Clinical Notes from this encounter No Clinical Notes Recorded
--- OUTSIDE RECORDS SUMMARY | 2024-12-12 14:13 | XMS_ITS | Encounter Summary ---
Author Organization Healthcare Address [address] [place] [address] Care Team Providers Care Product Director Name Role Phone Abelardo Jennings MD Primary Care Provider Amie vailable Encounter Details Date Type Department Care Team (Late st Contact Info) Description 10/18/2024 Refill [facility] [address] [place] [address] Moisés Alvarenga MD [address] [place] [id number] Chronic obstructive pulmonary disease, unspecified COPD type [...] Description 12/20/2024 10:40 AM EST Office Visit [facility] [place] [address], [address] [place] [address] See Zafar MD [address] [place] [address] 05/26/2025 10:00 AM EDT Ancillary Procedure [facility] [address], [address] [place] [address] 05/26/2025 11:40 AM EDT Office Visit [facility] [address], [address] [place] [address] Miguel A Torre MD [address] [place] [address] documented as of this encounter [...] documented as of this encounter Care Teams Product Director Relationship Specialty Start Date End Date Abelardo Jennings MD PCP - General Family Medicine 11/26/21 documented as of this encounter
--- OUTSIDE RECORDS SUMMARY | 2024-12-12 14:13 | XMS_ITS | Clinical Summary ---
Author Organization [facility] Address [address] [place] [address] Phone Care Team Providers Care Programming Manager Name Role Phone Jerri ARCHER, Evan Layton Unavailable [phone] Reason for Visit and Chief Complaint The Chief Complaint is: Right shoulder pain Problems Includes: Problems addressed during this encounter and other active Problems All Visits Onset Date Resolved Date Provider Condition S tatus Joint Pain Shoulder Right 12/21/2020 Evan Guthrie MD Active Last Documented On 1 2:43PM ; [facility], [facility] Plan of Treatment Fall Risk [...] - Last Documented On 12/27/2021 1:01PM ; [facility] He is finally making progress primarily due to his diligence and consistency with his home-based program. He is to continue this. We can see him in 2 to 3 months to recheck this if he is stalling. He has no formal restrictions. It may take him a full year for this to resolve - Last Documented On 12/27/2021 1:01PM ; [facility] Instructions to patient Lose weight Last Documented On 2 10:51AM ; [facility], [facility] Assessments Includes: Assessments from this encounter Findings Right frozen Shoulder - Last Documented On 12/27/2021 1:01PM ; [facility], [facility] Instructions Includes: Instructions from this encounter Instructions to patient Lose weight Last Documented On 2 10:51AM ; [facility] Medical Equipment - Implanted Devices Includes: Current Devices No Medical Equipment Recorded Medications Includes: Medications discussed during this encounter and other current Medications Current Medications (continue as prescribed) Atorvastatin Calcium 40 MG Oral Tablet 08/23/2021 Pr ovider: Diagnosis: Last Documented On 2 2:47PM By Fatmata Otto ; [facility] Carvedilol 12.5 MG Oral Tablet 08/23/2021 Provider: Diagnosis: Last Documented On 2 2:47PM By Fatmata Otto ; [facility] Lisinopril 20 MG Oral Tablet 08/23/2021 Provider: Diagnosis: Last Documented On 2 2:47PM By Fatmata Otto ; [facility] Spiriva HandiHaler 18 MCG Inhalation Capsule 2 Provider: Diagnosis: Last Documented On 2 2:47PM By Fatmata Otto ; [facility] Fluticasone Propionate 50 MCG/ACT Nasal Suspension Provider: Diagnosis: Last Documented On 2 2:47PM By Fatmata Otto ; [facility] glipiZIDE 5 MG Oral Tablet 06/30/2021 Provider: Diagnosis: Last Documented On 2 2:47PM By Fatmata Otto ; [facility] metFORMIN HCl 1000 MG Oral Tablet 12/21/2020 Provide r: Diagnosis: Last Documented On 1 3:04PM By Leta Alejo ; [facility] Clopidogrel Bisulfate 75 MG Oral Tablet 12/21/2020 P mander: Diagnosis: Last Documented On 1 3:03PM By Leta Alejo ; [facility] Past Medications on file HYDROcodone-Acetaminophen 5- 325 MG Oral Tablet 04/22/2021 - 05/06/2021 Provider: Evan Guthrie MD Diagnosis: once a day Last Documented On 2 3:11PM By Evan Guthrie ; [facility] Zofran 4 MG Oral Tablet 01/21/2021 - 01/31/2021 Provid er: Evan Guthrie MD Diagnosis: Take 1 tablet every 8 hrs pr n pain Take 1 tablet every 8 hrs prn post op nausea Last Documented On 1 2:04PM By Deysi Valentino ; [facility], [facility] Benzoyl Peroxide Wash 5% External Liquid 01/21/2021 - 2021 Provider: Evan moore MD Diagnosis: use as directed by Dr. Guthrie Last Documented On 1 2:04PM By Deysi Valentino ; [facility] Medications Administered Includes: Administered Medications from this encounter No Administered Medications Recorded Vital Signs Includes: Vital Signs from this encounter Vital Name 12/27/2021 10:58A Blood Pressure Sitting (mmHg) 116/57 Pulse Rate-Sitting (bpm) 71 Height (in) 70 Weight (lb) 209 Body Mass Index (kg/m2) 30.0 Body Surface Area (m2) 2.1 Note: hdv Last Documented: On 12/27/2021 10:59A M ; [facility] Results Includes: Results discussed during [...] 10/25/2021 Last Documented On 2 10:51AM ; [facility] Not a smoker 08/23/2021 Last Documented On 2 10:51AM ; [facility] Non-smoker 12/21/2020 Last Documented On 2 10:51AM ; [facility] Caffeine use 12/21/2020 Last Documented On 2 10:51AM ; [facility] Exercising regularly 12/21/2020 Last Documented On 2 10:51AM ; [facility] No recent change in diet 12/21/2020 Last Documented On 2 10:51AM ; [facility] Not a current smoker. 12/21/2020 Last Documented On 2 10:51AM ; [facility], [facility] Not using alcohol 12/21/2020 Last Documented On 2 10:51AM ; [facility] Not using drugs 12/21/2020 Last Documented On 2 10:51AM ; [facility] Smoking Status Unknown Procedures and Surgical History Includes: Procedures from this encounter Procedures Code Diagnosis Performing Provider Service L ocation Service Date use of tobacco assessment performed 1000F Last Documented On 2 10:51AM ; [facility] patient screened for future fall risk 3288F Last Documented On 2 10:51AM ; [facility] patient screened for future fall risk: documentation of any fall with injury in past year 1100F Last Documented On 2 10:51AM ; [facility] follow-up visit not in one month with PC P for elevated BP Last Documented On 2 10:51AM ; [facility] [id number] Last Documented On 2 10:51AM ; [facility], [facility] an MRI was performed [id number] Last Documented On 2 10:51AM ; [facility], [facility] Medical History Includes: Medical History addressed during this encounter Description Last Updated History of asthma 12/21/2020 Last Documented On 2 10:51AM ; [facility] History of diabetes mellitus 12/21/2020 Last Documented On 2 10:51AM ; [facility], [facility] History of Heart Attack / Stroke 021 Last Documented On 2 10:51AM ; [facility] Hypertension 12/21/2020 Last Documented On 2 10:51AM ; [facility] No recent immunization for flu 1 Last Documented On 2 10:51AM ; [facility] No recent immunization for pneumococcal pneumonia 12/21/2020 Last Documented On 2 10:51AM ; [facility] Family History Includes: Family History addressed during this encounter Description Last Updated Diabetes mellitus 12/21/2020 Last Documented On 2 10:51AM ; [facility] Review of Systems Includes: Review [...] Patient Last Documented On 2 10:59AM ; [facility] PCV (Pneumovax 23) 2 12/14/2021 Complete ( Reported) Patient Last Documented On 2 10:59AM ; [facility] Allergies Includes: Active Allergies No Known Allergies Encounters Encounter Provider Location Date Check-In Time Check- Out Time Diagnosis Follow Up Vern Michelle PA-C [facility] 2 10:53AM 11:10AM Insurance Includes: Active Insurance Policies Plan Name Member ID Group # Subscriber Relationship Effect lauren Dates 1 - [facility] [id number] Blake Woods 2 - BCBS ([place]) Medicare [id number] Blake Woods 11/13/2021 - Un known Clinical Notes Includes: Clinical Notes from this encounter No Clinical Notes Recorded
--- OUTSIDE RECORDS SUMMARY | 2024-12-12 14:13 | XMS_ITS | Clinical Summary ---
Author Organization [facility] , [facility] Address [address] [place] [address] Phone Care Team Providers Care Shiatsu Therapist Name Role Phone Jerri ARCHER, Evan Layton Unavailable [phone] Reason for Referral Date Encounter Description Provider [...] Active Last Documented On 1 2:43PM ; [facility], [facility] Plan of Treatment Fall Risk [...] - Last Documented On 10/25/2021 1:24PM ; [facility], [facility] This is not resolving. Again I think [...] - Last Documented On 10/25/2021 1:24PM ; [facility], [facility] Instructions to patient Lose weight Last Documented On 2 10:24AM ; [facility], [facility] Assessments Includes: Assessments from this encounter Findings Postop right frozen shoulder - Last Documented On 10/25/2021 1:24PM ; [facility] Instructions Includes: Instructions from this encounter Instructions to patient Lose weight Last Documented On 2 10:24AM ; [facility] Medical Equipment - Implanted Devices Includes: Current Devices No Medical Equipment Recorded Medications Includes: Medications discussed during this encounter and other current Medications Current Medications (continue as prescribed) Atorvastatin Calcium 40 MG Oral Tablet 08/23/2021 Pr ovider: Diagnosis: Last Documented On 2 2:47PM By Fatmata Otto ; [facility] Carvedilol 12.5 MG Oral Tablet 08/23/2021 Provider: Diagnosis: Last Documented On 2 2:47PM By Fatmata Otto ; [facility] Lisinopril 20 MG Oral Tablet 08/23/2021 Provider: Diagnosis: Last Documented On 2 2:47PM By Fatmata Otto ; [facility] Spiriva HandiHaler 18 MCG Inhalation Capsule 2 Provider: Diagnosis: Last Documented On 2 2:47PM By Fatmata Otto ; [facility] Fluticasone Propionate 50 MCG/ACT Nasal Suspension Provider: Diagnosis: Last Documented On 2 2:47PM By Fatmata Otto ; [facility] glipiZIDE 5 MG Oral Tablet 06/30/2021 Provider: Diagnosis: Last Documented On 2 2:47PM By Fatmata Otto ; [facility] metFORMIN HCl 1000 MG Oral Tablet 12/21/2020 Provide r: Diagnosis: Last Documented On 1 3:04PM By Leta Alejo ; [facility] Clopidogrel Bisulfate 75 MG Oral Tablet 12/21/2020 Sisi jones: Diagnosis: Last Documented On 1 3:03PM By Leta Alejo ; [facility] Past Medications on file HYDROcodone-Acetaminophen 5- 325 MG Oral Tablet 04/22/2021 - 05/06/2021 Provider: Evan Guthrie MD Diagnosis: once a day Last Documented On 2 3:11PM By Evan Guthrie ; [facility] Zofran 4 MG Oral Tablet 01/21/2021 - 01/31/2021 Provid er: Evan Guthrie MD Diagnosis: Take 1 tablet every 8 hrs pr n pain Take 1 tablet every 8 hrs prn post op nausea Last Documented On 1 2:04PM By Deysi Valentino ; [facility], [facility] Benzoyl Peroxide Wash 5% External Liquid 01/21/2021 - 2021 Provider: Evan moore MD Diagnosis: use as directed by Dr. Guthrie Last Documented On 1 2:04PM By Deysi Valentino ; [facility], [facility] Medications Administered Includes: Administered Medications from this encounter No Administered Medications Recorded Vital Signs Includes: Vital Signs from this encounter Vital Name 10/25/2021 10:35A Blood Pressure Sitting (mmHg) 144/67 Pulse Rate-Sitting (bpm) 73 Height (in) 70 Weight (lb) 209 Body Mass Index (kg/m2) 30.0 Body Surface Area (m2) 2.1 Note: ba Last Documented: On 10/25/2021 10:36A M ; [facility], [facility] Results Includes: Results discussed during [...] 10/25/2021 Last Documented On 2 1:24PM ; [facility], [facility] Not a smoker 08/23/2021 Last Documented On 2 10:24AM ; [facility], [facility] Non-smoker 12/21/2020 Last Documented On 2 10:24AM ; [facility], [facility] Caffeine use 12/21/2020 Last Documented On 2 10:24AM ; [facility], [facility] Exercising regularly 12/21/2020 Last Documented On 2 10:24AM ; [facility], [facility] No recent change in diet 12/21/2020 Last Documented On 2 10:24AM ; [facility] Not a current smoker. 12/21/2020 Last Documented On 2 10:24AM ; [facility] Not using alcohol 12/21/2020 Last Documented On 2 10:24AM ; [facility] Not using drugs 12/21/2020 Last Documented On 2 10:24AM ; [facility] Smoking Status Unknown Procedures and Surgical History Includes: Procedures from this encounter Procedures Code Diagnosis Performing Provider Service L ocation Service Date use of tobacco assessment performed 1000F Last Documented On 2 10:24AM ; [facility] patient screened for future fall risk 3288F Last Documented On 2 10:24AM ; [facility] patient screened for future fall risk: documentation of any fall with injury in past year 1100F Last Documented On 2 10:36AM ; [facility], [facility] follow-up visit not in one month with P for elevated BP Last Documented On 2 10:24AM ; [facility], [facility] follow-up visit in one month Last Documented On 2 10:36AM ; [facility], [facility] referral to physician Last Documented On 2 10:36AM ; [facility] an X-ray was performed 13186 Last Documented On 2 10:24AM ; [facility] an MRI was performed 24210 Last Documented On 2 10:24AM ; [facility] Medical History Includes: Medical History addressed during this encounter Description Last Updated History of asthma 12/21/2020 Last Documented On 2 10:24AM ; [facility] History of diabetes mellitus 12/21/2020 Last Documented On 2 10:24AM ; [facility] History of Heart Attack / Stroke 021 Last Documented On 2 10:24AM ; [facility] Hypertension 12/21/2020 Last Documented On 2 10:24AM ; [facility] No recent immunization for flu 1 Last Documented On 2 10:24AM ; [facility] No recent immunization for pneumococcal pneumonia 12/21/2020 Last Documented On 2 10:24AM ; [facility] Family History Includes: Family History addressed during this encounter Description Last Updated Diabetes mellitus 12/21/2020 Last Documented On 2 10:24AM ; [facility] Review of Systems Includes: Review [...] Time Diagnosis Follow Up Vern Michelle PA-C [facility] 2 10:30AM 10:48AM Insurance Includes: Active Insurance Policies Plan Name Member ID Group # Subscriber Relationship Effect lauren Dates 1 - BCBS [facility] [id number] Blake Esparza Self 2 - BCBS ([place]) Medicare [id number] Blake Esparza Self 11/13/2021 - Un known Clinical Notes Includes: Clinical Notes from this encounter No Clinical Notes Recorded
--- OUTSIDE RECORDS SUMMARY | 2024-12-12 14:13 | XMS_ITS | Clinical Summary ---
Author Organization [facility] Address [address] [place] [address] Care Team Providers Care A P Manager Name Role Phone Gogo Starks APRN Primary [...] 2 (Two) Times a Day. Active Tiotropium [place] Monohydrate (SPIRIVA RESPIMAT) 2.5 MCG/ACT aerosol solution [...] C SCREENING 04/20/2017 AAA SCREEN ONCE 2018 INFLUENZA VACCINE 09/13/2024 COVID-19 Vaccine ( season) 10/14/202406/2020, 03/27/2020 Medical Devices Implanted Type Area Chronometer Repairer Device Identifier Shelf Expiration Date Model / Serial / Lot Sut/Anch Biocomp Cscrw Ful/Thrd W/2suturetape [id number] - [id number] Implanted:Qty: 2 on 01/23/2021 by Evan Guthrie MD at [facility] Implant Right: Shoulder ARTHREX 06/12/2024 [id number] 75 / / [id number] Sut/Anch Tndn Loopntack Knotlss Fiberlink Biocomp 4.75mm - [id number] Implanted:Qty: 2 on 01/23/2021 by Evan Guthrie MD at [facility] Implant Right: Shoulder AR[employer]REX 12/13/2024 [id number] L / / [id number] Insurance [employer] Member Subscriber Plan / Payer (Ef fective 2017-Present) Name:Blake Esparza Relation to Subscriber:Self Name:Blake Esparza Payer ID:[id number] (NAIC) Group ID:[id number] Type:Medicare Replacement Address: [place] [phone] Care Teams A P Manager Relationship Specialty Start Date End Date Gogo Starks APRN [address] [place] [address] PCP - General Nurse Practitioner 01/04/21
--- OUTSIDE RECORDS SUMMARY | 2024-12-12 14:13 | XMS_ITS | Encounter Summary ---
Author Organization Healthcare Address [address] [place] [address] Care Team Providers Care Credit Report Checker Name Role Phone Abelardo Jennings MD Primary Care Provider Amie vailable Encounter Details Date Type Department Care Team ([facility] st Contact Info) Description 10/29/2024 Orders Only [facility] Medicine Specialties [address] [place] [address] Miguel A Torre MD [address] [place] [address] Chronic obstructive pulmonary disease, unspecified [...] Description 12/20/2024 10:40 AM EST Office Visit [facility] [place] [address], [address] [place] [address] See Zafar MD [address] [place] [address] 05/26/2025 10:00 AM EDT Ancillary Procedure [facility] [address], [address] [place] [address] 05/26/2025 11:40 AM EDT Office Visit [facility] [address] [facility], [address] [place] [address] Miguel A Torre MD [address] [place] [address] Scheduled Orders Name Type Priority Associated Diagnoses [...] documented as of this encounter Care Teams Credit Report Checker Relationship Specialty Start Date End Date Abelardo Jennings MD PCP - General Family Medicine 11/26/21 documented as of this encounter
--- OUTSIDE RECORDS SUMMARY | 2024-12-12 14:13 | XMS_ITS | Encounter Summary ---
Author Organization Healthcare Address [address] [place] [address] Care Team Providers Care Materials Tech Name Role Phone Abelardo Jennings MD Primary Care Provider Amie vailable Encounter Details Date Type Department Care Team (Late st Contact Info) Description 10/18/2024 Telephone [facility] [address] [place] [address] iMguel A Torre MD [address] [address] Social History Tobacco Use Types Packs/Day [...] Description 12/20/2024 10:40 AM EST Office Visit [facility] [place] [address] [facility], [address] [place] [address] See Zafar MD [address] [place] [address] 05/26/2025 10:00 AM EDT Ancillary Procedure [facility] [address], [address] [place] [address] 05/26/2025 11:40 AM EDT Office Visit [facility] [address] [facility], [address] [place] [address] Miguel A Torre MD [address] [facility] [address] [place] [address] documented as of this encounter [...] documented as of this encounter Care Teams Materials Tech Relationship Specialty Start Date End Date Abelardo Jennings MD PCP - General Family Medicine 11/26/21 documented as of this encounter
--- OUTSIDE RECORDS SUMMARY | 2024-12-12 14:13 | XMS_ITS ---
Care [facility] Created on: December 12, 2024 Blake Esparza : 1955 Sex: Male Author Organization [facility] Address [address] [place] [address] Phone Care Team Providers Care Channeler Outsole Name Role Phone Jerri ARCEHR, Evan Layton Unavailable [phone]
--- OUTSIDE RECORDS SUMMARY | 2024-12-12 14:13 | XMS_ITS | Clinical Summary ---
Author Organization [facility] Address [address] [place] [address] Care Team Providers Care Welder Production Line Arc Name Role Phone Abelardo Jennings MD Primary [...] differently:40 mg OralOnce as needed, Reported on 11/25/2024 metFORMIN XR (Glucophage-XR) 500 MG 24 hr [...] (eight) hours if needed for itching. Active ipratropium-albut ernestine (Duo-Neb) 0.5-2.5 mg/3 mL nebulizer solution Take 3 mL by nebulization every 6 (six) hours if needed for wheezing. Active cyclopentolate (Cyclogyl) 1 % ophthalmic solution INSTILL 1 DROP INTO THE AFFECTED EYE UPON AWAKENING, 1 DROP WHEN LEAVING HOME, AND 1 DROP UPON ARRIVAL 01/20/20 23 Active erythromycin (Romycin) 5 MG/GM ophthalmic ointment APPLY A THIN LAYER OF OINTMENT (1/4 INCH STRIP) TWICE DAILY TO AFFECTED EYE 3 DAYS BEFORE BUT NOT THE DAY OF SURGERY 01/20/20 23 Active pioglitazone (Actos) 15 MG tablet Take 1 tablet (15 mg) by mouth 1 (one) time each day. 10/11/19 24 Active Spiriva HandiHaler 18 MCG inhalation capsuleIndication s:Chronic obstructive pulmonary disease, unspecified COPD type (CMS/HCC) [...] [phone]. >500 call MD 11/15/19 24 Active atorvastatin (Lipitor) 40 MG tablet Take 2 tablets (80 mg) by mouth 1 (one) time each day. 56 tablet 12/08/19 24 Active Additional Information Patient not taking.Reported on 11/25/2024 atorvastatin (Lipitor) 80 MG tablet Take 1 tablet (80 mg) by mouth 1 (one) time each day. 90 tablet 3 01/03/20 24 Active carvedilol (Coreg) 12.5 MG tablet Take 0.5 tablets by mouth in the morning and 0.5 tablets in the evening. Take with meals. 90 tablet 3 05/11/19 25 Active empagliflozin (Jardiance) 10 MGIndications:ASC VD (arteriosclerotic cardiovascular disease),Ischemic cardiomyopathy,Di abetes mellitus type II, non insulin dependent Take 1 tablet by mouth daily. 60 tablet 2 10/18/19 25 Active fluticasone (Flonase) 50 MCG/ACT nasal sprayIndications: Chronic obstructive pulmonary disease, unspecified COPD type (CMS/HCC) Use 2 sprays in each nostril once a day. Shake gently. Before first use, prime pump. After use, clean tip and replace cap. 16 g 3 10/19/19 25 Active lisinopril 20 MG tablet Take 1 tablet by mouth daily. 56 tablet 12/10/19 25 Active aspirin 81 MG chewable tablet Chew 1 tablet (81 mg) 1 (one) time each day. aspirin 81 mg tablet 30 tablet 11 12/08/19 24 025 lisinopril 20 MG tablet Take 1 tablet (20 mg) by mouth 1 (one) time each day. 56 tablet 01/15/20 24 025 Discontinu ed(Reorder ) Active Problems Problem Noted Date Diagnosed Date Allergic rhinitis 12/10/2024 Overview (12/10/2024): Patient does have seasonal allergies that can be debilitating at times if they progress into a pneumonia. Continue to use Flonase daily 50mcg/ACT. Anxiety 12/10/2024 Overview (12/10/2024): Patient states he does have anxiety at times when he becomes SOBE; continue to use Hydroxyzine 10mg as needed. 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 Takes frequent rest breaks and has a proactive approach to prevent pneumonia caused by sinus issues. 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 Continue to take ASA 81mg daily, Atorvastatin 80mg daily, NTG 0.4mg/SL as needed; patient also takes Carvedilol 6.25mg BID and Jardiance 10mg daily Ischemic cardiomyopathy 10/22/2015 COPD (chronic obstructive pulmonary disease) 09/2015 Overview (12/10/2024): Patient uses oxygen 2LPM with his BiPap and use his Albuterol Sulfate 90mcg/inh 2 puffs as needed, Breztri 160 - 9 - 4.8/inh 2 puffs BID and Duo Neb 0.5/2.5/3mL treatments as needed. Takes frequent rest breaks and has a proactive approach to prevent pneumonia caused by sinus issues. Diabetes mellitus 10/22/2015 Overview (12/10/2024): Patient states he follows his diabetic diet but his glucose does go up when he has to take steroids for his custodial respiratory issues. Continue to take Jardiance 10mg daily, Glipizide 5mg daily, Humalog sliding scale and Metformin 500mg 2 tabs BID Essential (primary) hypertension 02/15/2007 Resolved Problems Problem Noted Date Diagnosed Date Resolved Date Bronchitis 11/30/2023 11/03/2024 Overweight (BMI 25.0-29.9) 11/30/2023 1 Pain due to onychomycosis of toenails of both feet 11/30/2023 12/01/2024 Pneumonia 11/30/2023 11/03/2024 Encounters Date Type Department Care Team Description 12/09/2024 Refill [facility] [place] [address] [facility], [address] [place] [address] See Zafar MD 11/25/2024 3:00 PM EDT Office Visit [facility] [address] [facility], [address] [place] [address] Miguel A Torre MD Chronic hypoxic respiratory failure (Primary Dx); Bronchiectasis without complication (CMS/HCC); Chronic obstructive pulmonary disease, unspecified COPD type (CMS/HCC); Nocturnal hypoxia 11/25/2024 Travel 10/29/2024 Orders Only [facility]ties [address] [place] [address] Miguel A Torre MD Chronic obstructive pulmonary disease, unspecified COPD type (CMS/HCC) (Primary Dx); Bronchiectasis without complication (CMS/HCC) 10/18/2024 Refill [facility] [address] [place] [address] Moisés Alvarenga MD Chronic obstructive pulmonary disease, unspecified COPD type (CMS/HCC) 10/18/2024 Telephone [facility] [address] [place] [address] Miguel A Torre MD 10/17/2024 Refill [facility] [place] [address] [facility] [facility], [address] [place] [address] See Zafar MD ASCVD (arteriosclerotic cardiovascular disease); Ischemic cardiomyopathy; Diabetes mellitus type II, non insulin dependent (CMS/HCC) 10/17/2024 Refill [facility] [address] [place] [address] Miguel A Torre MD Chronic obstructive pulmonary disease, unspecified COPD type (CMS/HCC); Bronchiectasis without complication (CMS/HCC) from Last 3 Months Immunizations Immunization Administration Dates Next Due Hep A, Adult 01/27/2004,07/17/2003 Hep B, adult 02/03/2004,08/26/2003,07/17/2003 Influenza, High-dose, Split Virus, Trivalent, Injectable, preservative free 11/18/2019 Influenza, high-dose, quadrivalent 01/10,12/14/2021,12/24/2020,2019,11/18/2019 Influenza, injectable, quadr ivalent, preservative free 12/29/2015 [employer] COVID-19 Vac cine (Purple Cap) 12+ 11/19/2020,04/17/2020,03/27/2020 [...] F) 11/25/2024 2:47 PM EDT Respiratory Rate 18 06/14/2024 10:2 0 AM EDT Oxygen Saturation 93% 11/25/2024 2:4 7 PM EDT Inhaled Oxygen Concentration - - Weight 92.8 kg (204 lb 9.4 oz) 11/25/2024 2:47 PM EDT Height 182.9 cm (6') 11/25/2024 2:47 PM EDT Body Mass Index 27.75 11/25/2024 2:47 PM EDT Plan of Treatment Upcoming Encounters Date Type Department Care Team (Late st Contact Info) Description 12/20/2024 10:40 AM EST Office Visit [facility] [place] [address], [address] [place] [address] See Zafar MD [address] [place] [address] 05/26/2025 10:00 AM EDT Ancillary Procedure [facility] [address], [address] [place] [address] 05/26/2025 11:40 AM EDT Office Visit [facility] [address] [facility] [address], [address] [place] [address] Miguel A Torre MD [address] [address] [place] [address] Health Maintenance Due Date Last Done Comments [facility]-Hepatitis C Screening 1955 [facility]Medicare Annual Wellness (AWV) 1955 [facility]-/Child/Adol SDOH Screenings 1955 Diabetes: Dental Exam 1963 [facility]- SDOH Screenings 1971 [facility]-Adult SDOH Screenings 1971 [facility]-Zoster Vaccines (1 of 2) 01/23/1972 CT Colonography 1998 Colonoscopy 1998 [facility]-DNA 1998 FIT 1998 FOBT 1998 Sigmoidoscopy 1998 [facility]-Colorectal Cancer Screening 1998 [facility]-DTaP,Tdap,and Td Vaccines (1 - Tdap) 07/18/2003 07/17/2003 [facility]-Abdominal Aortic Aneurysm (AAA) Screening 2018 [facility]-Diabetes: Hemoglobin A1C 07/04/2021 01/04/2021, 09/30/2015 [id number] Vaccine ( season) 2024 12/14/2021, 07/24/2021, 11/19/2020, Additional history exists [facility]-Influenza Vaccine (#1) 10/14/202401/10, 12/14/2021, 12/24/2020, Additional history exists [facility]-Depression Screening 06/14/2025 025, 04/22/2024, 04/22/2024, Additional history exists [facility]-Hepatitis A Vaccines Aged Out 01/27/2004, 04/2003 No longer eligible based on patient's age to complete this topic [facility]-Pneumococcal Vaccine: 50+ Years Completed 07/08/2021 [facility]-RSV Vaccine: 60+ Years or Completed 04/21/2023 [facility]-Obesity Intervention Completed 025, 11/25/2024, 06/14/2024, Additional history exists HPV Vaccines Aged Out [...] Last Indicated Tuberculosis Rule-Out 04/08/2024 04/08/2024 Insurance [facility] MEDICARE Care Teams Welder Production Line Arc Relationship Specialty Start Date End Date Abelardo Jennings MD PCP - General Family Medicine 11/26/21
--- OUTSIDE RECORDS SUMMARY | 2024-12-12 14:13 | XMS_ITS | Encounter Summary ---
Author Organization Healthcare Address [address] [place] [address] Care Team Providers Care Kidney Puller Name Role Phone Abelardo Jennings MD Primary Care Provider Amie vailable Reason for Visit * Reason Comments Med Refill Encounter Details Date Type Department Care Team (Late st Contact Info) Description 01/24/2024 Refill [facility] [place] [address] , [address] [place] [address] See Zafar MD [address] [place] [address] Coronary artery disease involving [place] coronary artery of [place] heart without angina pectoris Social History Tobacco [...] Description 12/20/2024 10:40 AM EST Office Visit [facility] [place] [address] , [address] [place] [address] See Zafar MD [address] [place] [id number] 05/26/2025 10:00 AM EDT Ancillary Procedure [facility] [address] [facility] [facility], [address] [place] [address] 05/26/2025 11:40 AM EDT Office Visit [facility] [address] [facility], [address] [place] [address] Miguel A Torre MD [address] [place] [address] documented as of this encounter Visit Diagnoses Diagnosis Coronary artery disease involving [place] coronary artery of [place] heart without angina pectoris documented in this encounter Additional Health Concerns Infection Onset Date Last Indicated Resolved Time Tuberculosis Rule-Out 04/08/2024 04/08/2024 Assessment Noted Time A fall risk assessment has been complete d for the patient 12/08/2023 10:20 AM EDT A Body Mass Index follow-up plan has been documented for the patient 12/08/2023 11:09 AM EDT documented as of this encounter Care Teams Kidney Puller Relationship Specialty Start Date End Date Abelardo Jennings MD PCP - General Family Medicine 11/26/21 documented as of this encounter
--- OUTSIDE RECORDS SUMMARY | 2024-12-12 14:13 | XMS_ITS | Encounter Summary ---
Author Organization Healthcare Address [address] [place] [address] Care Team Providers Care Engraver Rubber Name Role Phone Abelardo Jennings MD Primary Care Provider Amie vailable Reason for Visit * Reason Onset Date Comments Med Refill 10/17/2024 Encounter Details Date Type Department Care Team (Late st Contact Info) Description 10/17/2024 Refill [facility] [place] [address] [facility], [address] [place] [address] See Zafar MD [address] [place] [address] ASCVD (arteriosclerotic cardiovascular disease); Ischemic [...] Description 12/20/2024 10:40 AM EST Office Visit [facility] [place] [address], [address] [place] [address] See Zafar MD [address] [place] [address] 05/26/2025 10:00 AM EDT Ancillary Procedure [facility] [address] [facility], [address] [place] [address] 05/26/2025 11:40 AM EDT Office Visit [facility] [address] [facility], [address] [place] [address] Miguel A Torre MD [address] [place] [address] documented as of this encounter Visit Diagnoses Diagnosis ASCVD (arteriosclerotic cardiovascular disease) Unspecified cardiovascular disease Ischemic cardiomyopathy Other specified forms of chronic ischemic heart disease Diabetes mellitus type II, non insulin dependent Type II or unspecified type diabetes mellitus [...] documented as of this encounter Care Teams Engraver Rubber Relationship Specialty Start Date End Date Abelardo Jennings MD PCP - General Family Medicine 11/26/21 documented as of this encounter
--- OUTSIDE RECORDS SUMMARY | 2024-12-12 14:13 | XMS_ITS | Encounter Summary ---
Author Organization Healthcare Address [address] [place] [address] Care Team Providers Care Manufacturing Technician Name Role Phone Abelardo Jennings MD Primary Care Provider Amie vailable Encounter Details Date Type Department Care Team (Late Contact Info) Description 07/17/2023 Orders Only External Location [address] [place] [address] Nayan Guerra MD [address] [place] [phone] Social History Tobacco Use Types Packs/Day [...] Department Care Team (Late Contact Info) Description 12/20/2024 10:40 AM EST Office Visit [facility] [place] [address] [facility], [address] [place] [address] See Zafar MD [address] [place] [address] 05/26/2025 10:00 AM EDT Ancillary Procedure [facility] [address] [facility], [address] [place] [address] 05/26/2025 11:40 AM EDT Office Visit [facility] [address] [facility], [address] [place] [address] Miguel A Torre MD [address] [place] [address] documented as of this encounter Procedures Procedure Name Priority Date/Time Associated Diagnosis Comments CT CHEST WO IV CONTRAST 07/17/2023 1:20 PM EDT documented in this encounter Results * CT Chest wo IV Contrast (07/17/2023 1:20 PM EDT) Anatomical Region Laterality Modality Chest Computed Tomogra phy 07/17/2023 1:20 PM EDT us Nayan Guerra MD IMG CT PROCEDURES Final [...] documented as of this encounter Care Teams Manufacturing Technician Relationship Specialty Start Date End Date Abelardo Jennings MD PCP - General Family Medicine 11/26/21 documented as of this encounter
== END 2024-12-11 23:59 | disposition home or self-care (01) ==
LOC: LAB.DROPOF 12-12 13:54
PROVIDERS: PCP Family Medicine; Visit Provider Family Medicine
DX: R39.9 Unspecified symptoms and signs involving the genitourinary system (principal)
CPT/HCPCS: 87086; 87088

== ENCOUNTER 2025-01-29 10:17 | Outpatient (CLI) | payer MEDICARE, SELFPAY ==
--- OUTSIDE RECORDS SUMMARY | 2024-12-20 10:40 | XMS_ITS | Encounter Summary ---
Author Organization [facility] Address [address] [place] [address] Care Team Providers Care Cnc Mill Set Up Operator Name Role Phone Abelardo Jennings MD Primary Care Provider Amie vailable Reason for Referral * Consultation (Routine) - Authorized Specialty Diagnoses / Procedures Referred By Contac t Referred To Contact Diagnoses Coronary artery disease involving absentee-shawnee coronary artery of absentee-shawnee heart without angina pectoris Ischemic cardiomyopathy Primary hypertension Hyperlipidemia, unspecified hyperlipidemia type See Zafar MD [address] [place] [address] Phone: tel: fax: Referral ID Status Reason Start Date Expiration Date V isits Requested Visits Authorized [id number] Authorized 12/20/2024 06/21/2026 1 1 Encounter Details Date Type Department Care Team (Latest Contact Info) Description 12/20/2024 10:40 AM EST Office Visit [facility] [address], [address] [place] [address] See Zafar MD [address] [place] [address] Coronary artery disease involving absentee-shawnee coronary artery of absentee-shawnee heart without angina pectoris (Primary Dx); Ischemic cardiomyopathy; Primary hypertension; Type 2 diabetes mellitus with hyperglycemia, without long-term current use of insulin; Hyperlipidemia, unspecified hyperlipidemia type Social History Tobacco Use Types Packs/Day Years Used Date Smoking Tobacco: Former Cigarettes 1 31.4 0 09/28/1962 - 1994 Passive Smoke Exposure: Past Smokeless Tobacco: Never Alcohol Use Standard Drinks/Week Comments Not Currently 0 (1 standard drink = 0.6 oz pure alcohol) Alcoholic Drinks/day: Social alcohol use PHQ-2 Answer Date Recorded Patient Health Questionnaire-2 Score 0 12/20/2024 PHQ-9 Answer Date Recorded Patient Health Questionnaire-9 Score 0 12/20/2024 AUDIT-C Answer Date Recorded Q1: How often do you have a drink containing alcohol? Never 12/20/2024 Q2: How many drinks containi ng alcohol do you have on a typical day when you are drinking? Patient does not drink Q3: How often do you have si x or more drinks on one occasion? Never 12/20/2024 PHQ-2A Answer Date Recorded Depression Risk 0 04/22/2024 PHQ-9A Answer Date Recorded Depression Risk Score 0 04/22/2024 Sex and Gender Information Value Date Recorded Sex Assigned at Not on file Legal Sex Male 8:32 PM EDT Gender Identity Not on file Sexual Orientation Not on file documented as of this encounter Last Filed Vital Signs Vital Sign Reading Time Taken Comments Blood Pressure 101/61 12/20/2024 10:31 AM EST Pulse 62 12/20/2024 10:31 AM EST Temperature - - Respiratory Rate - - Oxygen Saturation 94% 12/20/2024 10:31 AM EST Inhaled Oxygen Concentration - - Weight 91.7 kg (202 lb 2.6 oz) 12/20/2024 10:31 AM EST Height - - Body Mass Index 27.42 11/25/2024 2:47 PM EDT documented in this encounter Functional Status * AUDIT-C Score Answer Date of Assessment Author 0 12/20/2024 10:33 AM Jihan Prince * Question Answer Date of Assessment Author Q1: How often do you have a drink containing alcohol? Never 12/20/2024 10:33 AM Jihan Prince Q2: How many drinks containing alcohol do you have on a typical day when you are drinking? Patient does not drink 12/20/2024 10:33 AM Jihan Prince Q3: How often do you have six or more drinks on one occasion? Never 12/20/2024 10:33 AM Jihan Prince * Over the past 2 weeks, how often have you been bothered by any of the following problems? Question Answer Date of Assessment Author Little interest or pleasure in doing things Not at all 12/20/2024 10:34 AM Jihan Prince Feeling down, depressed, or hopeless Not at all 12/20/2024 10:34 AM Jihan Prince Patient Health Questionnaire -2 Score 0 12/20/2024 10:34 AM Jihan Prince * Question Answer Date of Assessment Author Trouble falling or staying a sleep, or sleeping too much Not at all 12/20/2024 10:34 AM Jihan Prince Feeling tired or having terence le energy Not at all 12/20/2024 10:34 AM Jihan Prince Poor appetite or overeating Not at all 12/20/2024 10 :34 AM Jihan Prince Feeling bad about yourself - or that you are a failure or have let yourself or your family down Not at all 12/20/2024 10:34 AM Jihan Prince Trouble concentrating on thi ngs, such as reading the newspaper or watching television Not at all 12/20/2024 10:34 AM Jihan Prince Moving or speaking so slowly that other people could have noticed. Or the opposite - being so fidgety or restless that you have been moving around a lot more than usual Not at all 12/20/2024 10:34 AM Jihan Prince Thoughts that you would be b silva off or hurting yourself in some way Not at all 12/20/2024 10:34 AM Jihan Prince Patient Health Questionnaire -9 Score 0 12/20/2024 10:34 AM Jihan Prince * Calculated C-SSRS Risk Score (Lifetime/Recent) Answer Date of Assessment Author No Risk Indicated 12/20/2024 10:33 AM Jihan Prince * How difficult have these problems made it for you to do your work, take care of things at home, or get along with other people? Answer Date of Assessment Author Not difficult at all 12/20/2024 10:34 AM Jihan Benítez * Question Answer Date of Assessment Author 1. Wish to be (Past 1 Month) No 025 10:33 AM EST Jihan Lamar 2. Non-Specific Active Suici allie Thoughts (Past 1 Month) No 12/20/2024 10:33 AM EST Tracy Lamar 6. Suicidal Behavior (Lifetime) No 5 10:33 AM Jihan Prince documented as of this encounter Miscellaneous Notes * Patient Instructions - See Zafar MD - 12/20/2024 10:40 AM EST Images from the original note were not included. [facility] [address] [place] [address] Clinic Opal RN: [phone] Our Lab: [address] [place] [address] (call to schedule a lab appointment) Thank you for coming to clinic today! Here is what we discussed and what I recommend: - Please get fasting blood work for cholesterol Prevention of Heart Disease To lower your risk of heart disease, I recommend following the [place]'s Life Essential 8. Visit their website (heart.org/lifes8) to learn more about each topic. Cerda points: -Diet: Consume a heart health diet and avoid unhealthy foods (processed foods, fast foods, red meats, high salt, sugary drinks) -Exercise: Get 150 minutes of exercise every week -Sleep: Try to get at least 7 hours of sleep every night -Avoid Toxins: Don't use any tobacco products or illegal drugs. Drink alcohol in moderation. -Blood Pressure: Know your blood pressure. Monitor it at home. A healthy blood pressure is <130/80. -Blood Sugar and Cholesterol: these should be checked periodically and treated accordingly * Progress Notes - See Zafar MD - 12/20/2024 10:40 AM EST Images from the original note were not included. Cardiology Outpatient Clinic Note Referring provider: No referring provider defined for this encounter. PCP: Abelardo Jennings MD History of Present Illness Blake Esparza is a 69 y.o. male with a past medical history notable for CAD, STEMI s/p PCI to LADw/ WHITLEY x 2 and to diag w/ WHITLEY x 1 c/b cardiogenic shock and cardiac arrest s/p Impella and multipleshocks (09/2015), ICM w/ HFmrEF, HTN, DM II, bronchiectasis w/ severe obstructive defect on nocturnal oxygen supplementation through BiPAP who presents for follow up of CAD. Patient follows with Cardiology for history of CAD and was last seen in the clinic June 2024. At that time he was feeling well and no changes were made. He was advised to get a repeat lipid panel. Today, Blake Esparza and I discussed the following: History of Present Illness Approximately 1.5 months ago, he experienced a bout of pneumonia, which was successfully treated with antibiotics. The pneumonia caused chest pain, described as a muscle spasm similar to a charley horse in the leg, due to pressure on the lungs. The condition was caught early, avoiding hospitalization. He has scar tissue in his lungs. About 10 days ago, he developed a urinary tract infection (UTI) and is still on antibiotics. Symptoms included frequent urination, a burning sensation during urination, and the presence of blood clots in his urine. He has a history of UTIs, with the most recent one occurring 6 years ago, and reports a history of prostate issues in his youth. It was suggested that the UTI could be a side effect ofJardiance, which he has been taking for the past 2 to 3 years. He reports not drinking much water and often takes Jardiance before bedtime. He has run out of his Lasix prescription, which he takes as needed. He typically takes it every 10 to 15 minutes when needed but avoids taking it at night. During his pneumonia episode, he used Lasixto manage fluid retention but noticed it did not significantly increase his urination. He monitors his weight regularly and takes Lasix more frequently during the winter months. He reports no chest pain or swelling today. His breathing is generally good, although he experiences some difficulty. He has increased his use of oxygen, now using it even while watching TV, and has a portable concentrator for convenience. He had a heart attack in 09/2015, which was not accompanied by chest pain or tightness, but only sweating. He has not had any stents, catheterizations, or heart attacks since then. He believes he hadhis cholesterol levels checked last year and is requesting a refill of his atorvastatin prescription. He has not had any blood work done this year. SOCIAL HISTORY Diet: Drinks a lot of unsweet tea Coffee/Tea/Caffeine-containing Drinks: Drinks a lot of unsweet tea The patient otherwise denies recent/worsening chest pain, shortness of breath, syncope, palpitations, orthopnea, PND, lower extremity edema, or bleeding issues. Tobacco Use: Former - quit in 1994 Alcohol Use: Denies Illicit/Recreational Drug Use: Denies [place], retired form residential electrician. Medications (Reported as taking; list may include prescription updates of the current visit) Current Outpatient Medications Medication Instructions albuterol 108 (90 Base) MCG/ACT inhaler INHALE 1-2 PUFFS EVERY 4-6 HOURS NEEDED AND DIRECTED. aspirin 81 mg, Oral, Daily, aspirin 81 mg tablet atorvastatin (LIPITOR) 80 mg, Oral, Daily Breztri Aerosphere 160-9-4.8 MCG/ACT aerosol 2 puffs, 2 times daily carvedilol (COREG) 6.25 mg, Oral, 2 times daily with meals cyclopentolate (Cyclogyl) 1 % ophthalmic solution INSTILL 1 DROP INTO THE AFFECTED EYE UPON AWAKENING, 1 DROP WHEN LEAVING HOME, AND 1 DROP UPON ARRIVAL empagliflozin (JARDIANCE) 10 mg, Oral, Daily erythromycin (Romycin) 5 MG/GM ophthalmic ointment APPLY A THIN LAYER OF OINTMENT (1/4 INCH STRIP) TWICE DAILY TO AFFECTED EYE 3 DAYS BEFORE BUT NOT THE DAY OF SURGERY fluticasone (Flonase) 50 MCG/ACT nasal spray Use 2 sprays in each nostril once a day. Shake gently.Before first use, prime pump. After use, clean tip and replace cap. furosemide (LASIX) 40 mg, Oral, Once as needed glipiZIDE (GLUCOTROL) 5 mg, Daily HumaLOG KWIKPEN 100 UNIT/ML injection pen USE sliding scale BEFORE meals AND AT bedtime DIRECTED. Inject 2 units FOR blood sugar 151-200. 4 units FOR 201- 250. 6 units FOR 251-300. 8 units FOR 301-350. 10 units FOR 351-400. 12 units FOR 401-500. >500 call hydrOXYzine HCl (ATARAX) 10 mg, Every 8 hours PRN ipratropium-albuterol (Duo-Neb) 0.5-2.5 mg/3 mL nebulizer solution 3 mL, Every 6 hours PRN lisinopril 20 mg, Oral, Daily metFORMIN XR (GLUCOPHAGE-XR) 1,000 mg, 2 times daily nitroglycerin (NITROSTAT) 0.4 mg, Sublingual, Every 5 min PRN predniSONE (Deltasone) 20 MG tablet TAKE 1 TABLET BY MOUTH TWICE DAILY FOR 5 DAYS, THEN 1 TABLET ONCE DAILY FOR 5 DAYS sertraline (Zoloft) 50 MG tablet Spiriva HandiHaler 18 MCG inhalation capsule INHALE THE CONTENTS OF 1 CAPSULE ONE TIME EACH DAY sulfamethoxazole-trimethoprim (Bactrim DS) 800-160 MG tablet 1 tablet, 2 times daily Past Medical Histories Past Medical History[1] Surgical History[2] Allergies Patient has no known allergies. Family History Family History[3] Social History Social History[4] Physical Examination Visit Vitals BP 101/61 (BP Location: Right arm, Patient Position: Sitting, BP Cuff Size: Adult) Pulse 62 Wt 91.7 kg (202 lb 2.6 oz) SpO2 94% BMI 27.42 kg/m?? Smoking Status Former BSA 2.16 m?? Blood pressure 101/61, pulse 62, weight 91.7 kg (202 lb 2.6 oz), SpO2 94%. GENERAL: NAD HEENT: NCAT NECK: No appreciable JVD CARDIAC: Normal rate, regular rhythm, normal S1/S2, no m/r/g, 2+ radial pulses bilaterally PULM: CTAB without increased work of breathing ABD: Soft, NT, ND EXT: Warm and well perfused, no LE edema SKIN: No rashes or lesions NEURO: A&Ox4, moving all extremities spontaneously Pertinent Laboratory Information and Other Data Lab Results Component Value Date CREATININE 0.87 12/08/2023 CREATININE 0.99 01/04/2021 CREATININE 0.81 10/16/2015 EGFR 92.8 12/08/2023 BUN 19 12/08/2023 NA 138 12/08/2023 K 4.8 12/08/2023 CL 101 12/08/2023 CO2 27 12/08/2023 GLUCOSE 84 12/08/2023 CALCIUM 9.6 12/08/2023 AST 20 12/08/2023 ALT 16 12/08/2023 BILITOT 0.6 12/08/2023 ALKPHOS 69 12/08/2023 Lab Results Component Value Date WBC 9.10 01/04/2021 HGB 13.7 01/04/2021 HCT 43.5 01/04/2021 PLT 242 01/04/2021 Lab Results Component Value Date CHOL 149 12/08/2023 TRIG 129 12/08/2023 HDL 42 12/08/2023 LDLCALC 84 12/08/2023 LDLCALC 102 09/30/2015 TSH 3.01 09/30/2015 Lab Results Component Value Date HGBA1C 7.30 (H) 01/04/2021 Primary Study Review: No new cardiovascular imaging available for review since last appointment. Cath 09/2015: Coronary Arteries and Lesion Findings LMCA: Mild diffuse disease. LAD: Moderate diffuse disease and Acute occlusion. Moderate size vessel that supplies two diagonal branches, the second of which is large and branching. There is a thrombotic occlusion of the mid-LADdistal to D1 on initial injection; there is diffuse 70- 80% stenosis of the LAD from ostium to beyond D2. Lesion in Mid LAD: Proximal subsection. 100% stenosis 30 mm length. Pre procedure VINNY 0 flowwas noted. Poor runoff was present. The lesion was classified as High Risk (C). The lesion showed evidence of thrombus presence. Culprit lesion.Bifurcation lesion. Lesion in 2nd Diag: Ostial. 90% stenosis 15 mm length. Pre procedure VINNY I flow was noted. Good runoff was present. The lesion was classified as High Risk (C). The lesion showed evidence of thrombus presence.Bifurcation lesion. LCx: Mild diffuse disease. Moderate size, non-dominant vessel that supplies one large tortuous OM branch. RCA: Single stenosis. Moderate size vessel that is dominant for posterior circulation, supplying the PDA and a PLB. There is eccentric 40% plaque in prox- mid vessel, then diffuse irregularities thereafter. Assessment and Plan Problem List Items Addressed This Visit Coronary artery disease - Primary Relevant Orders Lipid panel Follow Up Cardiology Ischemic cardiomyopathy Relevant Orders Lipid panel Follow Up Cardiology Type 2 diabetes mellitus with hyperglycemia, without long-term current use of insulin Relevant Medications atorvastatin (Lipitor) 80 MG tablet lisinopril 20 MG tablet Other Visit Diagnoses Primary hypertension Relevant Medications furosemide (Lasix) 40 MG tablet lisinopril 20 MG tablet Other Relevant Orders Lipid panel Follow Up Cardiology Hyperlipidemia, unspecified hyperlipidemia type Relevant Medications atorvastatin (Lipitor) 80 MG tablet Other Relevant Orders Lipid panel Follow Up Cardiology Today patient is doing well and denies symptoms concerning for angina or heart failure. On exam he appears euvolemic and blood pressure is at goal. We discussed secondary prevention and risk factor modification at length. We are waiting on a repeat lipid panel since he was increased up to 80 mg of a torvastatin daily. We will provide 3rd democrat lab order so that he get this collected locally when he is fasting. We discussed that if he has recurrent UTIs he should be taken off of Jardiance, but itwould be reasonable to continue on it for now since he has only had 1 UTI in about 2 years of Jardiance therapy. # CAD / HLD -Continue ASA 81 mg daily -Continue atorvastatin 80 mg daily -Obtain fasting lipid panel -SLN PRN # ICM w/ HFmrEF -Continue carvedilol 12.5 mg twice daily -Continue lisinopril 20 mg daily -Continue SGLT2i # DM type II -Continue SGLT2i Follow up: 6 months I spent 20 minutes performing the following components of the encounter (on the day of the encounter): reviewing History, examining the patient, reviewing imaging and/or labs, Independently interpreting echocardiogram, ECG and/or other imaging results, ordering medications, counseling the patient and family/caregiver, communicating with other health health care consultant, care coordination, and entering clinical information in the EHR. Greater than 50% of the time spent on the encounter was face to face providing direct patient care, counseling for the patient/caregiver, and care coordination. Verbal consent was obtained to use ambient listening technology to assist in the documentation of the encounter: yes See Zafar MD Cardiovascular Medicine [1] Past Medical History: Diagnosis Date Ataxia, unspecified Ataxia Bronchitis 11/30/23 Cataracts, bilateral Generalized hyperhidrosis Diaphoresis Old myocardial infarction History of ST elevation myocardial infarction (STEMI) Other chest pain Chest pain radiating to arm Other specified congenital malformations of respiratory system Ciliary dyskinesia Pain due to onychomycosis of toenails of both feet 11/30/23 Personal history of other specified conditions History of nausea Pneumonia 11/30/23 [2] Past Surgical History: Procedure Laterality Date SHOULDER SURGERY Right [3] Family History Problem Relation Name Age of Onset Diabetes Mother Emphysema Father Diabetes Sister Pulmonary fibrosis Sister Heart Problem Other [4] Social History Tobacco Use Smoking status: Former Current packs/day: 0.00 Average packs/day: 1 pack/day for 31.4 years (31.4 ttl pk-yrs) Types: Cigarettes Start date: 09/28/1962 Quit date: 1994 Years since quittin.8 Passive exposure: Past Smokeless tobacco: Never Vaping Use Vaping status: Never Used Substance Use Topics Alcohol use: Not Currently Comment: Alcoholic Drinks/day: Social alcohol use Drug use: Never Comment: Drug use: No drug use documented in this encounter Plan of Treatment Upcoming Encounters Date Type Department Care Team ([facility] Contact Info) Description 05/26/2025 10:00 AM EDT Ancillary Procedure [facility] [address], [address] [place] [address] 05/26/2025 11:40 AM EDT Office Visit [facility] [address], [address] [place] [address] Miguel A Torre MD [address] [place] [address] 06/24/2025 10:40 AM EDT Office Visit [facility] [address], [address] [place] [address] See Zafar MD [address] [place] [id number] Scheduled Orders Name Type Priority Associated Diagnoses Orde r Schedule Lipid panel Lab Routine Coronary artery disease involving absentee-shawnee coronary artery of absentee-shawnee heart without angina pectoris Ischemic cardiomyopathy Primary hypertension Hyperlipidemia, unspecified hyperlipidemia type Expected: 12/20/2024 (Approximate), Expires: 06/23/2026 Scheduled Referrals Name Type Priority Associated Diagnoses Orde r Schedule Follow Up Cardiology Outpatient Referral Routine Coronary artery disease involving absentee-shawnee coronary artery of absentee-shawnee heart without angina pectoris Ischemic cardiomyopathy Primary hypertension Hyperlipidemia, unspecified hyperlipidemia type Expected: 06/19/2025, Expires: 06/19/2026 documented as of this encounter Visit Diagnoses Diagnosis Coronary artery disease involving absentee-shawnee coronary artery of absentee-shawnee heart without angina pectoris- Primary Ischemic cardiomyopathy Other specified forms of chronic ischemic heart disease Primary hypertension Unspecified essential hypertension Type 2 diabetes mellitus with hyperglycemia, without long-term current use of insulin Hyperlipidemia, unspecified hyperlipidemia type documented in this encounter Additional Health Concerns Infection Onset Date Last Indicated Resolved Time Tuberculosis Rule-Out 04/08/2024 04/08/2024 Assessment Noted Time PHQ-9 Depression Total Score: 0 12/21/19 25 10:34 AM EST A fall risk assessment has been complete d for the patient 12/20/2024 10:34 AM EST A Body Mass Index follow-up plan has been documented for the patient 12/20/2024 11:08 AM EST documented as of this encounter Care Teams Cnc Mill Set Up Operator Relationship Specialty Start Date End Date Abelardo Jennings MD PCP - General Family Medicine 11/26/21 documented as of this encounter
[2025-01-29 18:00] LABS: Hematocrit 43.8 % (42.0-52.0); Hemoglobin 13.6 g/dL (14.1-18.0); Immature Granulocytes % 0.9 %; Mean Corpuscular HGB Conc 31.1 g/dL (31.8-35.4); Mean Corpuscular Hemoglobin 30.3 pg (27.0-31.2); Mean Corpuscular Volume 97.6 fl (80-94); Nucleated Red Blood Cells % 0 %; Platelet Count 247 K/mm3 (142-424); Red Blood Count 4.49 M/mm3 (4.60-6.20); Red Cell Distribution Width-SD 47.1 fL; White Blood Count 6.9 K/mm3 (4.8-10.8)
[2025-01-29 18:37] LABS: Albumin Level 4.3 g/dl (3.5-5.0); Chloride 101 mmol/L (98-107); Potassium 5.1 mmoL/L (3.5-5.1); Sodium 135 mmol/L (136-145)
[2025-01-29 18:40] LABS: Alanine Aminotransferase 27 U/L (12-78); Albumin/Globulin Ratio 1.7 (1.1-1.8); Alkaline Phosphatase 79 U/L (38-126); Anion Gap 11.1 mEq/L (5-15); Aspartate Amino Transferase 27 U/L (17-59); Bilirubin,Total 0.7 mg/dl (0.2-1.3); Blood Urea Nitrogen 26 mg/dl (9-20); Calcium 9.1 mg/dl (8.4-10.2); Carbon Dioxide 28 mmol/L (22.0-30.0); Cholesterol 136 mg/dl (140-200); Creatinine,Serum 1.00 mg/dl (0.66-1.25); Estimated Glomerular Filt Rate 73 ml/min (>60); GFR (African American) 89 ML/MIN (>60); Globulin 2.5 g/dL (1.3-3.2); Glucose 98 mg/dl (74-100); HDL Cholesterol 40 mg/dl (40-60); Total Protein,Serum 6.8 g/dl (6.3-8.2); Triglycerides 192 mg/dl (30-150)
[2025-01-29 18:57] LABS: Hemoglobin A1C 7.9 % (4.0-6.0)
[2025-01-29 21:48] LABS: Hepatitis C Ab Qual. W/ RFX NEGATIVE (Negative)
--- OUTSIDE RECORDS SUMMARY | 2025-01-30 10:41 | XMS_ITS | Encounter Summary ---
Author Organization [facility] Address [address] [place] [address] Care Team Providers Care Industrial Relations Commissioner Name Role Phone Abelardo Jennings MD Primary Care Provider Amie vailable Encounter Details Date Type Department Care Team (Latest Contact Info) Description 12/20/2024 Travel Social History Tobacco Use Types Packs/Day [...] on file documented as of this encounter Functional Status * AUDIT-C Score Answer Date of Assessment Author 0 12/20/2024 10:33 AM Jihan Prince * Question Answer Date of Assessment Author Q1: How often do you have a drink containing alcohol? Never 12/20/2024 10:33 AM Jihan Prnice Q2: How many drinks containing alcohol do [...] (Past 1 Month) No 025 10:33 AM Jihan Prince 2. Non-Specific Active Suici allie Thoughts (Past 1 Month) No 12/20/2024 10:33 AM Tracy Prince 6. Suicidal Behavior (Lifetime) No 10:33 AM Jihan Prince documented as of this encounter Plan of Treatment Upcoming Encounters Date Type Department Care Team ([facility] st Contact Info) Description 05/26/2025 10:00 AM EDT Ancillary Procedure [facility] [address] [place] [address] 05/26/2025 11:40 AM EDT Office Visit [facility] [address] [place] [address] Miguel A Torre MD [address] [place] [address] 06/24/2025 10:40 AM EDT Office Visit [facility] [address], [address] [place] [address] See Zafar MD [address] [place] [address] documented as of this encounter Visit Diagnoses Not on filedocumented in this encounter Additional Health Concerns Infection Onset Date Last Indicated Resolved Time Tuberculosis Rule-Out 04/08/2024 04/08/2024 Assessment Noted Time PHQ-9 Depression Total Score: 0 12/21/19 10:34 AM EST A fall risk assessment has been complete d for the patient 12/20/2024 10:34 AM EST A Body Mass Index follow-up plan has been documented for the patient 12/20/2024 11:08 AM EST documented as of this encounter Care Teams Industrial Relations Commissioner Relationship Specialty Start Date End Date Abelardo Jennings MD PCP - General Family Medicine 11/26/21 documented as of this encounter
--- OUTSIDE RECORDS SUMMARY | 2025-01-30 10:41 | XMS_ITS | Encounter Summary ---
Author Organization Healthcare Address [address] [place] [address] Care Team Providers Care Oxygen Plant Operator Name Role Phone Abelardo Jennings MD Primary Care Provider Amie vailable Encounter Details Date Type Department Care Team (Late st Contact Info) Description 01/06/2025 Telephone [facility] [address] [place] [address] Kinsey Rogers, PharmD Social History Tobacco Use Types Packs/Day Years [...] Care Team (Late st Contact Info) Description 05/26/2025 10:00 AM EDT Ancillary Procedure [facility] [address] [facility] [facility], [address] [place] [address] 05/26/2025 11:40 AM EDT Office Visit [facility] [address] [facility], [address] [place] [address] Miguel A Torre MD [address] [facility] [address]rd [address] [place] [address] 06/24/2025 10:40 AM EDT Office Visit [facility] [place] [address] [facility] [facility], [address] [place] [address] See Zafar MD [address] [place] [address] documented as of this encounter [...] documented as of this encounter Care Teams Oxygen Plant Operator Relationship Specialty Start Date End Date Abelardo Jennings MD PCP - General Family Medicine 11/26/21 documented as of this encounter
--- OUTSIDE RECORDS SUMMARY | 2025-01-30 10:41 | XMS_ITS | Encounter Summary ---
Author Organization Healthcare Address [address] [place] [address] Care Team Providers Care Machine Marker Name Role Phone Abelardo Jennings MD Primary Care Provider Amie vailable Encounter Details Date Type Department Care Team (Late st Contact Info) Description 01/03/2025 Orders Only [facility] [address], [address] [place] [address] Miguel A Torre MD [address] [place] [address] Bronchiectasis without complication (CMS/HCC) (Primary Dx) Social History Tobacco Use Types Packs/Day Years [...] Upcoming Encounters Date Type Department Care Team ([facility] st Contact Info) Description 05/26/2025 10:00 AM EDT Ancillary Procedure [facility] [address] [facility], [address] [place] [address] 05/26/2025 11:40 AM EDT Office Visit [facility] [address] [facility], [address] [place] [address] Miguel A Torre MD [address] [place] [address] 06/24/2025 10:40 AM EDT Office Visit [facility] [place] [address] [facility], [address] [place] [address] See Zafar MD [address] [place] [address] documented as of this encounter Visit Diagnoses Diagnosis Bronchiectasis without complication (CMS/HCC)- Primary documented in this encounter Additional Health Concerns [...] documented as of this encounter Care Teams Machine Marker Relationship Specialty Start Date End Date Abelardo Jennings MD PCP - General Family Medicine 11/26/21 documented as of this encounter
--- OUTSIDE RECORDS SUMMARY | 2025-01-30 10:41 | XMS_ITS | Encounter Summary ---
Author Organization Healthcare Address [address] [place] [address] Care Team Providers Care Manager Entry Name Role Phone Abelardo Jennings MD Primary Care Provider Amie vailable Reason for Visit * Reason Comments Med Refill Encounter Details Date Type Department Care Team (Late Contact Info) Description 01/24/2024 Refill [facility] [place] [address] [facility], [address] [place] [address] See Zafar MD [address] [place] [address] Coronary artery disease involving [place] coronary artery of [place] heart without angina pectoris Social History Tobacco [...] Description 05/26/2025 10:00 AM EDT Ancillary Procedure [facility] [address] [facility], [address] [place] [address] 05/26/2025 11:40 AM EDT Office Visit [facility] [address] [facility], [address] [place] [address] Miguel A Torre MD [address] [place] [address] 06/24/2025 10:40 AM EDT Office Visit [facility] [place] [address] [facility], [address] [place] [address] See Zafar MD [address] [place] [address] documented as of this encounter Visit Diagnoses Diagnosis Coronary artery disease involving [place] coronary artery of [place] heart without angina pectoris documented in this encounter Additional Health Concerns Infection Onset Date Last Indicated Resolved Time Tuberculosis Rule-Out 04/08/2024 04/08/2024 Assessment Noted Time A fall risk assessment has been complete d for the patient 12/08/2023 10:20 AM EDT A Body Mass Index follow-up plan has been documented for the patient 12/08/2023 11:09 AM EDT documented as of this encounter Care Teams Manager Entry Relationship Specialty Start Date End Date Abelardo Jennings MD PCP - General Family Medicine 11/26/21 documented as of this encounter
--- OUTSIDE RECORDS SUMMARY | 2025-01-30 10:41 | XMS_ITS | Encounter Summary ---
Author Organization [facility] Address [address] [place] [address] Care Team Providers Care Gm Name Role Phone Abelardo Jennings MD Primary Care Provider Amie vailable Reason for Visit * Reason Onset Date Comments Med Refill 12/09/2024 Encounter Details Date Type Department Care Team (Late st Contact Info) Description 12/09/2024 Refill [facility] [place] [address] [facility], [address] [place] [address] See Zafar MD [address] [place] [address] Social History Tobacco Use Types [...] Description 05/26/2025 10:00 AM EDT Ancillary Procedure [facility] [address] [facility], [address] [place] [address] 05/26/2025 11:40 AM EDT Office Visit [facility] [address] [facility], [address] [place] [address] Miguel A Torre MD [address] [facility] 3rd [address] [place] [address] 06/24/2025 10:40 AM EDT Office Visit [facility] [place] [address] [facility], [address] [place] [address] See Zafar MD [address] [place] [address] documented as of this encounter [...] documented as of this encounter Care Teams Gm Relationship Specialty Start Date End Date Abelardo Jennings MD PCP - General Family Medicine 11/26/21 documented as of this encounter
--- OUTSIDE RECORDS SUMMARY | 2025-01-30 10:41 | XMS_ITS | Clinical Summary ---
Author Organization [facility] Address [address] [place] [address] Care Team Providers Care Train Station Agent Name Role Phone Abelardo Jennings MD Primary [...] pain. 90 tablet 1 11/27/19 22 Active metFORMIN XR (Glucophage-XR) 500 MG 24 hr [...] THE DAY OF SURGERY 01/20/20 23 Active Spiriva HandiHaler 18 MCG inhalation capsuleIndication s:Chronic obstructive pulmonary disease, unspecified COPD type (CMS/HCC) INHALE THE CONTENTS OF 1 CAPSULE ONE TIME EACH DAY 30 capsule 6 11/13/19 24 Active Additional Information Patient not taking.Reported on 12/20/2024 HumaLOG KWIKPEN 100 UNIT/ML injection pen USE [...] mg tablet 30 tablet 11 12/08/19 24 Active carvedilol (Coreg) 12.5 MG tablet [...] cap. 16 g 3 10/19/19 25 Active sulfamethoxazole- trimethoprim (Bactrim DS) 800-160 MG tablet Take 1 tablet by mouth 2 times a day. 12/12/19 25 Active furosemide (Lasix) 40 MG tablet Take 1 tablet by mouth 1 time as needed (weight gain >2 pound in a day or 5 days in a week). 90 tablet 3 12/21/19 25 026 Active atorvastatin (Lipitor) 80 MG tablet Take 1 tablet by mouth daily. 90 tablet 3 12/21/19 25 Active lisinopril 20 MG tablet Take 1 tablet by mouth daily. 90 tablet 3 12/21/19 25 026 Active Breztri Aerosphere 160-9-4.8 MCG/ACT aerosolIndication s:Chronic obstructive pulmonary disease, unspecified COPD type (CMS/HCC),Bronchi ectasis without complication (CMS/HCC) Inhale 2 puffs 2 times a day. 32.1 g 3 01/29/20 Active Breztri Aerosphere 160-9-4.8 MCG/ACT aerosol Inhale 2 puffs 2 times a day. 11/16/19 25 025 Discontinu ed(Reorder ) azithromycin (Zithromax) 500 MG tabletIndications :Bronchiectasis without complication (CMS/HCC) Take 1 tablet by mouth daily for 10 days. 10 tablet 01/04/20 25 025 Active Problems Problem Noted Date Diagnosed Date Bronchitis 12/20/2024 Acute and chronic respiratory failure with hypox ia 12/20/2024 Allergic rhinitis 12/10/2024 Overview (12/10/2024): Patient does [...] Overview (12/10/2024): Patient has a hx of MA widowmaker with stent placement. 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 Continue to take Jardiance 10mg daily, Glipizide 5mg daily, Humalog sliding scale and Metformin 500mg 2 tabs BID Essential (primary) hypertension 02/15/2007 Resolved Problems Problem Noted Date Diagnosed Date Resolved Date Bronchitis 11/30/2023 11/03/2024 Overweight (BMI 25.0-29.9) 11/30/2023 1 Pain due to onychomycosis of toenails of both feet 11/30/2023 12/01/2024 Pneumonia 11/30/2023 11/03/2024 Encounters Date Type Department Care Team Description 01/28/2025 Refill [facility] [address] [place] [address] Miguel A Torre MD Chronic obstructive pulmonary disease, unspecified COPD type (CMS/HCC) (Primary Dx); Bronchiectasis without complication (CMS/HCC) 01/06/2025 Telephone [facility] [address] [place] [address] Kinsey Rogers, PharmD 01/03/2025 Orders Only [facility] [address] [place] [address] Miguel A Torre MD Bronchiectasis without complication (CMS/HCC) (Primary Dx) 01/03/2025 Telephone [facility] [address] [place] [address] Alesha Weber, PharmD 12/20/2024 10:40 AM EST Office Visit [facility] [place] [address] [place] [address] See Zafar MD Coronary artery disease involving [place] coronary artery of [place] heart without angina pectoris (Primary Dx); Ischemic cardiomyopathy; Primary hypertension; Type 2 diabetes mellitus with hyperglycemia, without long-term current use of insulin; Hyperlipidemia, unspecified hyperlipidemia type 12/20/2024 Travel 12/09/2024 Refill [facility] [place] [address] [address], [address] [place] [address] See Zafar MD 11/25/2024 3:00 PM EDT Office Visit [facility] [address], [address] [place] [address] Miguel A Torre MD Chronic hypoxic respiratory failure (Primary Dx); Bronchiectasis without complication (CMS/HCC); Chronic obstructive pulmonary disease, unspecified COPD type (CMS/HCC); Nocturnal hypoxia 11/25/2024 Travel from Last 3 Months Immunizations Immunization Administration Dates Next Due Hep A, Adult 01/27/2004,07/17/2003 Hep B, adult 02/03/2004,08/26/2003,07/17/2003 Influenza, High-dose, Split Virus, Trivalent, Injectable, preservative free 11/18/2019 Influenza, high-dose, quadrivalent 01/10,12/14/2021,12/24/2020,2019,11/18/2019 Influenza, injectable, quadr ivalent, preservative free 12/29/2015 [employer] COVID-19 Vac cine (Purple Cap) 12+ 11/19/2020,04/17/2020,03/27/2020 [...] Pulse 62 12/20/2024 10:31 AM EST Temperature 36.8 C (98.2 F) 11/25/2024 2:47 PM EDT Respiratory Rate 18 06/14/2024 10:20 AM EDT Oxygen Saturation 94% 12/20/2024 10:31 AM EST Inhaled Oxygen Concentration - - Weight 91.7 kg (202 lb 2.6 oz) 12/20/2024 10:31 AM EST Height 182.9 cm (6') 11/25/2024 2:47 PM EDT Body Mass Index 27.42 11/25/2024 2:47 PM EDT Plan of Treatment Upcoming Encounters Date Type Department Care Team (Late st Contact Info) Description 05/26/2025 10:00 AM EDT Ancillary Procedure [facility] [place] [address] [facility], [address] [place] [address] 05/26/2025 11:40 AM EDT Office Visit [facility] [place] [address] [facility], [address] [place] [address] Miguel A Torre MD [address] [place] [address] 06/24/2025 10:40 AM EDT Office Visit [facility] [place] [address] [facility], [address] [place] [address] See Zafar MD [address] [place] [address] Health Maintenance Due Date Last Done Comments [facility]-Hepatitis C Screening 1955 [facility]-Medicare Annual Wellness (AWV) 1955 [facility]-/Child/Adol SDOH Screenings 1953 Diabetes: Dental Exam 1963 [facility]- SDOH Screenings 1971 [facility]-Adult SDOH Screenings 1971 [facility]-Zoster Vaccines (1 of 2) 01/23/1972 CT Colonography 1998 Colonoscopy 1998 FIT-DNA 1998 FIT 1998 FOBT 1998 Sigmoidoscopy 1998 [facility]-Colorectal Cancer Screening 1998 [facility]-DTaP,Tdap,and Td Vaccines (1 - Tdap) 07/18/2003 07/17/2003 [facility]-Abdominal Aortic Aneurysm (AAA) Screening 2018 [facility]-Diabetes: Hemoglobin A1C 07/04/2021 01/04/2021, 09/30/2015 [facility]-UCHBG-22 Vaccine ( season) 2024 12/14/2021, 07/24/2021, 11/19/2020, Additional history exists [facility]-Influenza Vaccine (#1) 10/14/202401/10, 12/14/2021, 12/24/2020, Additional history exists [facility]-Depression Screening 12/20/2025 025, 12/20/2024, 04/22/2024, Additional history exists [facility]-Hepatitis A Vaccines Aged Out 01/27/2004, 04/2003 No longer eligible based on patient's age to complete this topic [facility]-Pneumococcal Vaccine: 50+ Years Completed 07/08/2021 [facility]-RSV Vaccine: 60+ Years or Completed 04/21/2023 [facility]-Obesity Intervention Completed 025, 11/25/2024, 11/25/2024, Additional history exists HPV Vaccines (No Doses Required) Completed [facility]-HIB Vaccines Aged Out No longer e [...] Last Indicated Tuberculosis Rule-Out 04/08/2024 04/08/2024 Insurance [facility] MEDICARE Care Teams Train Station Agent Relationship Specialty Start Date End Date Abelardo Jennings MD PCP - General Family Medicine 11/26/21
--- OUTSIDE RECORDS SUMMARY | 2025-01-30 10:41 | XMS_ITS | Encounter Summary ---
Author Organization Healthcare Address [address] [place] [address] Care Team Providers Care Fuel Efficient Automobile Designer Name Role Phone Abelardo Jennings MD Primary Care Provider Amie vailable Encounter Details Date Type Department Care Team (Late st Contact Info) Description 01/03/2025 Telephone [facility] [address] [place] [address] Alesha Weber, [place] [address] Social History Tobacco Use Types Packs/Day Years [...] Description 05/26/2025 10:00 AM EDT Ancillary Procedure [facility] [address] [facility], [address] [place] [address] 05/26/2025 11:40 AM EDT Office Visit [facility] [address] [facility], [address] [place] [address] Miguel A Torre MD [address] [facility] [address] [place] [address] 06/24/2025 10:40 AM EDT Office Visit [facility] [place] [address] [facility], [address] [place] [address] See Zafar MD [address] [place] [address] documented as of this encounter [...] documented as of this encounter Care Teams Fuel Efficient Automobile Designer Relationship Specialty Start Date End Date Abelardo Jennings MD PCP - General Family Medicine 11/26/21 documented as of this encounter
--- OUTSIDE RECORDS SUMMARY | 2025-01-30 10:41 | XMS_ITS | Encounter Summary ---
Author Organization [facility] Address [address] [place] [address] Care Team Providers Care Makeup Sales Consultant Name Role Phone Abelardo Jennings MD Primary Care Provider Amie vailable Reason for Visit * Reason Onset Date Comments Med Refill 01/28/2025 Encounter Details Date Type Department Care Team (Late st Contact Info) Description 01/28/[address] [facility] Special[facility] [address] [place] [address] Miguel A Torre MD [address] [place] [address] Chronic obstructive pulmonary disease, unspecified [...] Description 05/26/2025 10:00 AM EDT Ancillary Procedure [facility] [address] [facility], [address] [place] [address] 05/26/2025 11:40 AM EDT Office Visit [facility] [address] [facility], [address] [place] [address] Miguel A Torre MD [address] [facility] [address] [place] [address] 06/24/2025 10:40 AM EDT Office Visit [facility] [place] [address] [facility], [address] [place] [address] See Zafar MD [address] [place] [address] documented as of this encounter [...] documented as of this encounter Care Teams Makeup Sales Consultant Relationship Specialty Start Date End Date Abelardo Jennings MD PCP - General Family Medicine 11/26/21 documented as of this encounter
--- OUTSIDE RECORDS SUMMARY | 2025-01-30 10:41 | XMS_ITS | Clinical Summary ---
Author Organization [facility] Address [address] [place] [address] Care Team Providers Care Pathology Manager Name Role Phone Gogo Starks APRN [...] 2 (Two) Times a Day. Active Tiotropium [place] Monohydrate (SPIRIVA RESPIMAT) 2.5 MCG/ACT aerosol solution [...] 10/14/202406/2020, 03/27/2020 Medical Devices Implanted Type Area Roofer Assistant Device Identifier Shelf Expiration Date Model / Serial / Lot Sut/Anch Biocomp Cscrw Ful/Thrd W/2suturetape [id number] - [id number] Implanted:Qty: 2 on 01/23/2021 by Evan Guthrie MD at [facility] Implant Right: Shoulder ARTH[employer] 06/12/2024 [id number] / / [id number] Sut/Anch Tndn Loopntack Knotlss Fiberlink Biocomp 4.75mm - [id number] Implanted:Qty: 2 on 01/23/2021 by Evan Guthrie MD at [facility] Implant Right: Shoulder [employer]X 12/13/2024 [id number] / / [id number] Insurance [employer] Member Subscriber Plan / Payer (Ef fective 2017-Present) Name:Blake Esparza Relation to Subscriber:Self Name:Blake Esparza Payer ID:[id number] (NAIC) Group ID:[id number] Type:Medicare Replacement Address: [place] [phone] Care Teams Pathology Manager Relationship Specialty Start Date End Date Gogo Starks APRN [address] [place] [address] PCP - General Nurse Practitioner 01/04/21
--- OUTSIDE RECORDS SUMMARY | 2025-01-30 10:41 | XMS_ITS | Encounter Summary ---
Author Organization Healthcare Address [address] [place] [address] Care Team Providers Care Substation Operator Transforming Name Role Phone Abelardo Jennings MD Primary Care Provider Amie vailable Encounter Details Date Type Department Care Team (Late Contact Info) Description 07/17/2023 Orders Only External Location [address] [place] [address] Nayan Guerra MD [address] [place] [address] Social History Tobacco Use Types Packs/Day [...] Department Care Team (Late Contact Info) Description 05/26/2025 10:00 AM EDT Ancillary Procedure [facility] [address] [facility], [address] [place] [address] 05/26/2025 11:40 AM EDT [facility] [address] [facility], [address] [place] [address] Miguel A Torre MD [address] [place] [address] 06/24/2025 10:40 AM EDT Office Visit [facility] [place] [address], [address] [place] [address] See Zafar MD [address] [place] [address] documented as of this encounter [...] documented as of this encounter Care Teams Substation Operator Transforming Relationship Specialty Start Date End Date Abelardo Jennings MD PCP - General Family Medicine 11/26/21 documented as of this encounter
[2025-01-31 09:29] LABS: Hepatitis B Surface Antigen Negative (Negative)
== END 2025-01-29 23:59 | disposition home or self-care (01) ==
LOC: LAB.DROPOF 01-30 10:05
PROVIDERS: PCP Family Medicine; Visit Provider Family Medicine
DX: E11.65 Type 2 diabetes mellitus with hyperglycemia (principal); I10 Essential (primary) hypertension; Z11.59 Encounter for screening for other viral diseases; Z11.4 Encounter for screening for human immunodeficiency virus [HIV]
CPT/HCPCS: 80053; 80061; 83036; 85025; 86803; 87340; 87389